=== PATIENT | female | born 1965 | race Caucasian/White ===

== ENCOUNTER 2017-01-25 17:20 | Emergency (ER) | payer MEDICARE, OTHER ==
[~2017-01-25] VITALS: Ht 170.2 cm; Wt 77.1 kg
[~2017-01-25 17:20] MED LIST: AMLO5TAB4 PO; ASPI325T8 PO; CLOP75TA PO; CRESTOR10 MG PO; GLYB5TAB3 PO; METF10002 PO; METO50TA2 PO; OLME40TA12 PO; PANT40TA5 PO
--- NOTE | 2017-01-25 17:38 | EKG ---
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
[2017-01-25] MEDS ORDERED: IPRATRPIUM/ALBUTEROL 0.5/2.5MG 3 ML NEBU. ONE (18:04)
[2017-01-25 18:34] LABS: BASO % 0 % (0-3); EOS % 0 % (0-3); HEMATOCRIT 42.2 % (36.0-47.0); HEMOGLOBIN 14.8 g/dL (12.0-15.5); LYMPH # 2.7 x10^3/uL (1.0-4.8); LYMPH % 30 % (24-48); MEAN CORPUSCULAR HEMOGLOBIN 35 pg (25-35); MEAN CORPUSCULAR HGB CONC 35 g/dL (31-37); MEAN CORPUSCULAR VOLUME 100 fL (79-100); MONO # 0.8 x10^3/uL (0.0-1.1); MONO % 9 % (0-9); NEUT # 5.5 x10^3uL (1.8-7.7); NEUT % 60 % (31-73); PLATELET COUNT 178 x10^3/uL (140-400); RED BLOOD COUNT 4.21 x10^6/uL (3.50-5.40); RED CELL DISTRIBUTION WIDTH 14.2 % (11.5-14.5); WHITE BLOOD COUNT 9.1 x10^3/uL (4.0-11.0)
[2017-01-25] MEDS ORDERED: IPRATRPIUM/ALBUTEROL 0.5/2.5MG 3 ML NEBU. NEB ONE (18:45)
[2017-01-25 18:48] LABS: ALBUMIN 3.2 g/dL (3.4-5.0); ALBUMIN/GLOBULIN RATIO 0.7 (1.0-1.7); CALCIUM 8.8 mg/dL (8.5-10.1); CREATININE 0.7 mg/dL (0.6-1.0); GFR 87.9; POTASSIUM 4.3 mmol/L (3.5-5.1); TOTAL BILIRUBIN 0.4 mg/dL (0.2-1.0); TOTAL PROTEIN 7.6 g/dL (6.4-8.2)
[2017-01-25 18:55] VITALS: BP 102/59
[2017-01-25] MEDS ORDERED: FLUT12AE IH (19:27)
[2017-01-25] MEDS ORDERED: FLUT9.9S NS (19:27)
--- NOTE | 2017-01-25 19:27 | PHYS DOC ---
Past History Past Medical History: COPD, Diabetes, GERD, High Cholesterol, Heart Disease, Hypertension, [place], Other Past Surgical History: Other Smoking: Cigarettes, Less than 1pk/day Alcohol Use: Heavy Drug Use: None Adult General Chief Complaint Chief Complaint: CHEST PAIN HPI HPI Patient is a [age] year old F who presents with dull central chest pain that is associated with cough and shortness of breath. She feels that her symptoms are worse with activity and improved with rest. She does have a history of heart attack with multiple stents, peripheral vascular disease, alcohol abuse, tobacco abuse and pneumonia. She did take herself off of her Plavix recently. She doesn't like the way her breathing medications taste so she has not been using those either. Review of Systems Review of Systems Constitutional: Denies fever or chills [] Eyes: Denies change in visual acuity, redness, or eye pain [] HENT: Nasal congestion and drainage Respiratory: Negative except history of present illness Cardiovascular: No additional information not addressed in HPI [] GI: Denies abdominal pain, nausea, vomiting, bloody stools or diarrhea [] : Denies dysuria or hematuria [] Musculoskeletal: Denies back pain or joint pain [] Integument: Denies rash or skin lesions [] Neurologic: Denies headache, focal weakness or sensory changes [] Endocrine: Denies polyuria or polydipsia [] Family History Family History Family history was reviewed Current Medications Current Medications Current Medications Medications (Trade) Dose Ordered Sig/[facility] Start Time Stop Time Status Last Admin Dose Admin Albuterol/ Ipratropium (Duoneb) 3 ml 1X ONCE 01/25/17 18:45 01/25/17 18:46 DC 01/25/17 18:41 3 ML Allergies Allergies Allergies Coded Allergies Type Severity Reaction Last Updated Verified No Known Drug Allergies 08/14/15 No Physical Exam Physical Exam Constitutional: Well developed, well nourished, no acute distress, non-toxic appearance. [] HENT: Normocephalic, atraumatic, bilateral external ears normal, oropharynx moist, no oral exudates, nose normal. [] Eyes: PERRLA, EOMI, conjunctiva normal, no discharge. [] Neck: Normal range of motion, no tenderness, supple, no stridor. [] Cardiovascular:Heart rate regular rhythm, Lungs & Thorax: Diminished with mild wheezing noted Abdomen: Bowel sounds normal, soft, no tenderness, no masses, no pulsatile masses. [] Skin: Warm, dry, no erythema, no rash. [] Back: No tenderness, no CVA tenderness. [] Extremities: No tenderness, no cyanosis, no clubbing, ROM intact, no edema. [] Neurologic: Alert and oriented X 3, normal motor function, normal sensory function, no focal deficits noted. [] Psychologic: Affect normal, judgement normal, mood normal. [] Current Patient Data Vital Signs Vital Signs Date Time Temp Pulse Resp B/P (MAP) Pulse Ox O2 Delivery O2 Flow Rate FiO2 01/25/17 18:34 99 Room Air 01/25/17 18:26 62 18 111/67 (82) 01/25/17 17:20 97.8 Lab Results Laboratory Tests Test 01/25/17 18:15 White Blood Count 9.1 x10^3/uL (4.0-11.0) Red Blood Count 4.21 x10^6/uL (3.50-5.40) Hemoglobin 14.8 g/dL (12.0-15.5) Hematocrit 42.2 % (36.0-47.0) Mean Corpuscular Volume 100 fL (79-100) Mean Corpuscular Hemoglobin 35 pg (25-35) Mean Corpuscular Hemoglobin Concent 35 g/dL (31-37) Red Cell Distribution Width 14.2 % (11.5-14.5) Platelet Count 178 x10^3/uL (140-400) Neutrophils (%) (Auto) 60 % (31-73) Lymphocytes (%) (Auto) 30 % (24-48) Monocytes (%) (Auto) 9 % (0-9) Eosinophils (%) (Auto) 0 % (0-3) Basophils (%) (Auto) 0 % (0-3) Neutrophils # (Auto) 5.5 x10^3uL (1.8-7.7) Lymphocytes # (Auto) 2.7 x10^3/uL (1.0-4.8) Monocytes # (Auto) 0.8 x10^3/uL (0.0-1.1) Eosinophils # (Auto) 0.0 x10^3/uL (0.0-0.7) Basophils # (Auto) 0.0 x10^3/uL (0.0-0.2) Sodium Level 129 mmol/L (136-145) L Potassium Level 4.3 mmol/L (3.5-5.1) Chloride Level 95 mmol/L (98-107) L Carbon Dioxide Level 26 mmol/L (21-32) Anion Gap 8 (6-14) Blood Urea Nitrogen 4 mg/dL (7-20) L Creatinine 0.7 mg/dL (0.6-1.0) Estimated GFR (Cockcroft-Gault) 87.9 BUN/Creatinine Ratio 6 (6-20) Glucose Level 173 mg/dL (70-99) H Calcium Level 8.8 mg/dL (8.5-10.1) Total Bilirubin 0.4 mg/dL (0.2-1.0) Aspartate Amino Transferase (AST) 28 U/L (15-37) Alanine Aminotransferase (ALT) 39 U/L (14-59) Alkaline Phosphatase 117 U/L (46-116) H Troponin I Quantitative < 0.017 ng/mL (0-0.055) Total Protein 7.6 g/dL (6.4-8.2) Albumin 3.2 g/dL (3.4-5.0) L Albumin/Globulin Ratio 0.7 (1.0-1.7) L EKG EKG Low voltage EKG, sinus rhythm with nonspecific ST changes Radiology/Procedures Radiology/Procedures Chest x-ray Impressions: No acute disease Course & Med Decision Making Course & Med Decision Making Pertinent Labs and Imaging studies reviewed. (See chart for details) Admission was recommended. Melvi did leave AGAINST MEDICAL ADVICE Dragon Disclaimer Dragon Disclaimer This chart was dictated in whole or in part using Voice Recognition software in a busy, high-work load, and often noisy Emergency Department environment. It may contain unintended and wholly unrecognized errors or omissions. Departure Departure: Impression: Primary Impression: Bronchitis Additional Impressions: Upper respiratory infection Chest pain Disposition: AGAINST MEDICAL ADVICE Condition: GUARDED Referrals: AMALIA YUN MD (PCP) Patient Instructions: Acute Bronchitis, Chest Pain (Nonspecific), Upper Respiratory Infection, Adult Additional Instructions: Melvi was seen in the emergency department for chest pain. There was concern that her chest pain could be related to cardiac disease. Admission was recommended and declined. She was given prescriptions for steroid nose spray and inhaler. She was encouraged to follow-up with her primary care doctor or inside sales account representative as soon as possible and/or to return to the emergency room for further management. Scripts Fluticasone Propionate (FLOVENT 110MCG HFA) 12 Gm Aer.w.adap 2 PUFF IH BID for 7 Days, #1 INHALER 2 Refills Prov: SOL RIDLEY MD 01/25/17 Fluticasone Propionate (Flonase Allergy Relief) 9.9 Ml Perrin.susp 1 SPRAYS NS BID for 7 Days, BOTTLE Prov: SOL RIDLEY MD 01/25/17 Problem Qualifiers Additional Impressions: Upper respiratory infection URI type: unspecified viral URI Qualified Codes: J06.9 - Acute upper respiratory infection, unspecified; B97.89 - Other viral agents as the cause of diseases classified elsewhere Chest pain Chest pain type: unspecified Qualified Codes: R07.9 - Chest pain, unspecified SOL RIDLEY MD Jan 25, 2017 19:27
--- NOTE | 2017-01-26 08:14 | RAD ---
Portable chest, 01/25/2017: History: Chest pain, shortness of breath Comparison is made to a study from 01/27/2016. The heart size and pulmonary vascularity are normal. There is calcific plaquing of the aorta. No pulmonary infiltrates are seen. There is no evidence of pleural fluid. IMPRESSION: No acute cardiopulmonary abnormality is detected.
== END 2017-01-25 19:35 | disposition left against medical advice (07) ==
LOC: ER 17:20
DX: J06.9 Acute upper respiratory infection, unspecified (principal); J40 Bronchitis, not specified as acute or chronic; R07.89 Other chest pain; J44.9 Chronic obstructive pulmonary disease, unspecified; K21.9 Gastro-esophageal reflux disease without esophagitis; E78.00 Pure hypercholesterolemia, unspecified; E11.9 Type 2 diabetes mellitus without complications; I25.2 Old myocardial infarction; I11.9 Hypertensive heart disease without heart failure; F10.10 Alcohol abuse, uncomplicated
CPT/HCPCS: 36415; 71010; 80053; 84484; 85025; 93005; 94640; 99285; J7620

== ENCOUNTER → 2017-07-22 | Outpatient (CLI) | payer MEDICARE, OTHER ==
[~2017-07-22] MED LIST changes: +FLUT12AE IH; +FLUT9.9S NS; -METO50TA2 PO; +METO50TA6 PO
--- NOTE | 2017-07-22 17:41 | RAD ---
CT head without contrast 07/22/2017 Clinical indication: Fall with head trauma. On anticoagulation. COMPARISON: None. TECHNIQUE: Multiple CT images of the head were obtained without contrast. *One or more of the following individualized dose reduction techniques were utilized for this examination: 1. Automated exposure control. 2. Adjustment of the mA and/or kV according to patient size. 3. Use of iterative reconstruction technique. FINDINGS: No acute intracranial hemorrhage or extra-axial fluid collection no midline shift. The basal cisterns are patent. The chapman-white matter interfaces are maintained. There is mild prominence of the ventricles and subarachnoid spaces. There is partial opacification of the posterior right ethmoid air cells. There is calcified plaque the left M1 and proximal M2 segment of the MCA. IMPRESSION: 1. No acute intracranial hemorrhage. 2. Mild generalized cerebral atrophy. 3. Left middle cerebral calcified plaque. Electronically signed by: Flaco Vergara MD (07/22/2017 5:38 PM) [facility]
== END | disposition home or self-care (01) ==
LOC: CT 17:09
PROVIDERS: ATTEND Physician Assistant
DX: S09.90XA Unspecified injury of head, initial encounter (principal); G31.89 Other specified degenerative diseases of nervous system; I67.2 Cerebral atherosclerosis; I11.9 Hypertensive heart disease without heart failure; E11.40 Type 2 diabetes mellitus with diabetic neuropathy, unspecified; E78.00 Pure hypercholesterolemia, unspecified; Z87.891 Personal history of nicotine dependence; X58.XXXA Exposure to other specified factors, initial encounter; Y93.89 Activity, other specified; Y92.89 Other specified places as the place of occurrence of the external cause; Y99.8 Other external cause status
CPT/HCPCS: 70450

== ENCOUNTER 2018-02-05 03:47 | Inpatient (IN) | payer MEDICARE, OTHER ==
[~2018-02-05] VITALS: Ht 170.2 cm; Wt 77.5 kg
[~2018-02-05 03:47] MED LIST changes: -METF10002 PO; +METF10007 PO
[2018-02-05 04:27] LABS: BASO # 0.2 x10^3/uL (0.0-0.2); BASO % 3 % (0-3); EOS # 0.2 x10^3/uL (0.0-0.7); EOS % 3 % (0-3); HEMATOCRIT 40.2 % (36.0-47.0); LYMPH # 2.8 x10^3/uL (1.0-4.8); LYMPH % 43 % (24-48); MEAN CORPUSCULAR HEMOGLOBIN 36 pg (25-35); MEAN CORPUSCULAR HGB CONC 35 g/dL (31-37); MEAN CORPUSCULAR VOLUME 102 fL (79-100); MONO # 0.5 x10^3/uL (0.0-1.1); MONO % 7 % (0-9); NEUT # 2.9 x10^3uL (1.8-7.7); NEUT % 44 % (31-73); PLATELET COUNT 263 x10^3/uL (140-400); RED BLOOD COUNT 3.93 x10^6/uL (3.50-5.40); RED CELL DISTRIBUTION WIDTH 13.7 % (11.5-14.5); WHITE BLOOD COUNT 6.5 x10^3/uL (4.0-11.0)
[2018-02-05] MEDS ORDERED: IV DEXTROSE 5 %-0.45 % NACL 1,000 ML IV ONE (04:30)
[2018-02-05] MEDS ORDERED: FAMOTIDINE 20 MG/2 ML VIAL IVP ONE ×2 (04:30→06:00)
--- NOTE | 2018-02-05 05:51 | ED.ADGEN ---
Past History Past Medical History: COPD, Diabetes, GERD, High Cholesterol, Heart Disease, Hypertension, [place], Other Past Surgical History: Tubal ligation, Other Smoking: Cigarettes, Less than 1pk/day Alcohol Use: Heavy Drug Use: None Adult General Chief Complaint Chief Complaint Altered mental status, hypoglycemiaresolved HPI HPI Patient is 53-year-old female who is diabetic who presents with reported altered mental status at home earlier this morning. Patient was found to be confused with a blood sugar of 21 per EMS. Patient given 150 mL of D10 with return to normal mental status and blood sugar greater than 100. Patient states she is on glyburide and is not compliant with her medications. She states she's had decreased appetite and has not ate in the past 3 days. Patient is a daily drinker and drink prior to ED arrival. She states she is began alcoholic for over 30 years. She states she is disabled is unable to shot relies on the food that her common-law provides but does not want to ED as she finds it disgusting. Reports occasional nausea and abdominal pain which is chronic. She denies hematemesis, coffee-ground emesis, hematochezia and melena. No history of pancreatitis. No other acute symptoms or complaints. Review of Systems Review of Systems Review symptoms as per history of present illness. All other systems were reviewed and found to be within normal limits, except as documented in this note. Current Medications Current Medications Current Medications Medications (Trade) Dose Ordered Sig/[facility] Start Time Stop Time Status Last Admin Dose Admin Dextrose/Sodium Chloride 1,000 ml @ 0 mls/hr 1X ONCE 02/05/18 04:30 02/05/18 04:31 DC 02/05/18 04:30 999 MLS/HR Famotidine (Pepcid Vial) 20 mg 1X ONCE 02/05/18 04:30 02/05/18 04:53 DC 02/05/18 04:29 20 MG Allergies Allergies Allergies Coded Allergies Type Severity Reaction Last Updated Verified No Known Drug Allergies 08/14/15 No Physical Exam Physical Exam Constitutional: Well developed, double, poor hygiene, non-toxic appearance. [] HENT: Normocephalic, atraumatic, bilateral external ears normal, oropharynx moist, no oral exudates, nose, nasal cannula [] Eyes: PERRLA, EOMI, conjunctiva normal, no discharge. [] Neck: Normal range of motion, no tenderness, supple, no stridor. [] Cardiovascular:Heart rate regular rhythm, no murmur [] Lungs & Thorax: Bilateral breath sounds clear to auscultation [] Abdomen: Bowel sounds normal, soft, no tenderness.[] Skin: Warm, dry, no erythema, no rash. [] Back: No tenderness, no CVA tenderness. [] o edema. [] Neurologic: Alert and oriented X 3, normal motor function, normal sensory function, no focal deficits noted. [] Psychologic: Affect normal, judgement normal, mood normal. [] Current Patient Data Vital Signs Vital Signs Date Time Temp Pulse Resp B/P (MAP) Pulse Ox O2 Delivery O2 Flow Rate FiO2 02/05/18 04:15 96.2 70 16 97 Room Air Lab Results Laboratory Tests Test 02/05/18 04:00 02/05/18 04:10 02/05/18 04:48 Glucose (Fingerstick) 124 mg/dL (70-99) H 145 mg/dL (70-99) H White Blood Count 6.5 x10^3/uL (4.0-11.0) Red Blood Count 3.93 x10^6/uL (3.50-5.40) Hemoglobin 14.0 g/dL (12.0-15.5) Hematocrit 40.2 % (36.0-47.0) Mean Corpuscular Volume 102 fL (79-100) H Mean Corpuscular Hemoglobin 36 pg (25-35) H Mean Corpuscular Hemoglobin Concent 35 g/dL (31-37) Red Cell Distribution Width 13.7 % (11.5-14.5) Platelet Count 263 x10^3/uL (140-400) Neutrophils (%) (Auto) 44 % (31-73) Lymphocytes (%) (Auto) 43 % (24-48) Monocytes (%) (Auto) 7 % (0-9) Eosinophils (%) (Auto) 3 % (0-3) Basophils (%) (Auto) 3 % (0-3) Neutrophils # (Auto) 2.9 x10^3uL (1.8-7.7) Lymphocytes # (Auto) 2.8 x10^3/uL (1.0-4.8) Monocytes # (Auto) 0.5 x10^3/uL (0.0-1.1) Eosinophils # (Auto) 0.2 x10^3/uL (0.0-0.7) Basophils # (Auto) 0.2 x10^3/uL (0.0-0.2) EKG EKG [] Radiology/Procedures Radiology/Procedures [] Course & Med Decision Making Course & Med Decision Making Pertinent Labs and Imaging studies reviewed. (See chart for details) [Patient tolerating food in the emergency department. Blood sugar remains consistently greater than 100. Lab work pending. Care endorsed to [facility] at 06:00 review of lab, clinical evaluation, and final disposition. Patient may be suitable to discharge home to follow up with her primary care physician for alcohol rehabilitation flat is normal and she continues to improve.] Final Impression Final Impression [#1 hypoglycemiaresolved #2 altered mental statusresolved #3 chronic alcoholism] Dragon Disclaimer Dragon Disclaimer This electronic medical record was generated, in whole or in part, using a voice recognition dictation system. PATRIA STALEY DO Feb 05, 2018 05:51
[2018-02-05 05:56] LABS: ALBUMIN 2.9 g/dL (3.4-5.0); ALBUMIN/GLOBULIN RATIO 0.7 (1.0-1.7); CALCIUM 7.7 mg/dL (8.5-10.1); CREATININE 0.8 mg/dL (0.6-1.0); POTASSIUM 4.4 mmol/L (3.5-5.1); TOTAL BILIRUBIN 0.2 mg/dL (0.2-1.0); TOTAL PROTEIN 7.1 g/dL (6.4-8.2)
[2018-02-05] MEDS ORDERED: ONDANSETRON PF 4 MG/2 ML VIAL. IV PRN (06:15)
[2018-02-05] MEDS: IV NORMAL SALINE 1,000ML 1,000 ML IV SCH ×2 (06:15→20:07)
[2018-02-05 07:30] VITALS: BP 101/56
[2018-02-05] MEDS ORDERED: CLOP75TA57 PO (07:54)
[2018-02-05] MEDS ORDERED: LOSA50TA7 PO (07:59)
[2018-02-05] MEDS ORDERED: DEXTROSE 50% 25 GM / 50ML DISP.SYRIN. IV PRN (08:45)
[2018-02-05] MEDS ORDERED: chlordiazePOXIDE HCL 25 MG CAPSULE PO PRN (08:45)
[2018-02-05] MEDS: amLODIPine BESYLATE 5 MG TABLET PO SCH (09:00)
[2018-02-05] MEDS: METOPROLOL TART IMMED RELEASE 50 MG TABLET PO SCH ×2 (09:00→21:27)
[2018-02-05] MEDS ORDERED: NON FORMULARY ITEM (Fluticasone Propionate (Flovent 110MCG Hfa) 2 PUFF) IH SCH (09:00)
[2018-02-05] MEDS ORDERED: BUDESONIDE 0.5 MG/2 ML NEBU NEB SCH (09:00)
[2018-02-05] MEDS: BUDESONIDE 0.5 MG/2 ML NEBU NEB SCH ×2 (09:00→20:39)
[2018-02-05] MEDS: ASPIRIN 325 MG TABLET PO SCH (10:48)
[2018-02-05] MEDS: CLOPIDOGREL BISULFATE 75 MG TABLET PO SCH (10:49)
[2018-02-05] MEDS: ATORVASTATIN CALCIUM 20 MG TABLET PO SCH (10:49)
[2018-02-05] MEDS: PANTOPRAZOLE 40 MG TABLET. PO SCH (10:49)
[2018-02-05] MEDS: MVI, ADULT NO.4 WITH VIT K 10 ML, THIAMINE INJ 100 MG, FOLIC ACID INJ 1 MG in IV NORMAL... IV SCH ×4 (10:52)
[2018-02-05 11:15] VITALS: BP 101/63
[2018-02-05] MEDS: INSULIN LISPRO 300 UNITS/3 ML INSULN.PEN. SQ SCH ×3 (12:58→20:49)
[2018-02-05 13:20] LABS: CALCIUM 7.8 mg/dL (8.5-10.1); CREATININE 0.7 mg/dL (0.6-1.0); GFR 87.5; POTASSIUM 3.9 mmol/L (3.5-5.1)
[2018-02-05] MEDS: NICOTINE 14MG PATCH. TD SCH (13:34)
--- NOTE | 2018-02-05 14:06 | HP ---
ADMIT DATE: 02/05/2018 HISTORY OF PRESENT ILLNESS: The patient is a 53-year-old female patient, who was brought by ambulance to the Emergency Room with reported altered mental status. At home earlier this morning, she was found to be confused. Her blood sugar was only 21 mg/dL. She said she tried to call her boyfriend who is busy with [employer] videos and did not hear here, she was unable to get up to eat or drink something; the emergency medical service personnel gave her 150 mL of D10, will return to normal mental status and blood sugar has risen 200 mg. She apparently is on glyburide and metformin, and she is not really compliant with her medication. She 6 cans of beer every day together with some occasionally shots of whiskey and her appetite has been poor, has not eaten in the past 3 days. She states that she has been alcoholic for more than 30 years. She is disabled, she is unable to shop and realizing the food that her common law provides. She reports occasional nausea and abdominal pain, which is chronic; however, she denied any hematemesis, melena or hematochezia. She was extensively evaluated in the Emergency Room, was found to have hyponatremia with a serum sodium of 120, some of it is probably dilutional due to hypercalcemia and her blood alcohol was extremely high at 271 mg/dL, was admitted to monitor her blood sugar and she is also complaining of difficulty severe claudication with severe peripheral vascular disease and she underwent stenting of both lower extremities on numerous occasions. She was advised by her pharmacy customer care specialist numerous times that she should quit smoking. Unfortunately, she continued to smoke heavily and we will consult Dr. Son to see her. PAST MEDICAL HISTORY: Significant for coronary artery disease, status post myocardial infarction x 2. She is status post percutaneous coronary intervention with stent deployment x 3. She is known to have type 2 diabetes mellitus, hypertension, hyperlipidemia, bronchial asthma and severe peripheral vascular disease, status post multiple angioplasties and stent deployment. She stated that she has 6 stents in both lower extremities. PAST SURGICAL HISTORY: Significant for , tubal ligation, dysphagia, gastrojejunostomy, and colonoscopy. ALLERGIES: She has no known drug allergies. MEDICATIONS: She is currently on following medications: She is on Plavix 75 mg once a day, Crestor 10 mg at bedtime, metoprolol tartrate 50 mg twice a day, amlodipine besylate 5 mg daily, losartan potassium 50 mg daily, aspirin 325 mg once a day, Flovent 110 mcg 2 puffs twice a day, Protonix 40 mg once a day, metformin 1000 mg twice a day and glyburide 5 mg twice a day. REVIEW OF SYSTEMS: The patient denied any blurring of vision. She does have cataract in her right eye that did not require surgery. She has also vertigo, stuffy nose together with sore throat. Did complain of nausea, vomiting, and diarrhea, and apparently she has an episode of GI bleed before. She denied any dysuria, frequency or hematuria. Denied any chest pain, shortness of breath, orthopnea, paroxysmal nocturnal dyspnea. Did complain of cough, but denied any chills, rigors or fever. PHYSICAL EXAMINATION: GENERAL: On arrival to the Emergency Room, she looked well and was clearly in no apparent respiratory distress. There is definitely no pallor, jaundice, cyanosis, or thyromegaly. No jugular venous distension. No limb edema. VITAL SIGNS: Her heart rate on arrival was 64, blood pressure was 154/72, temperature was 98.2, respiratory rate was 18 and oxygen saturation was 95%. HEAD, EYES, EARS, NOSE, AND THROAT: Showed normocephalic, atraumatic. NECK: Supple. HEART: Showed normal first and second heart sounds with no gallop, rub or murmur. CHEST: Clear to auscultation. No crepitation or rhonchi. ABDOMEN: Distended, soft, nontender. No guarding or rigidity. No organomegaly. All hernial orifices intact. Bowel sounds normal. NEUROLOGIC: She is awake, alert, responding appropriately. All cranial nerves intact. EXTREMITIES: She moves upper extremities to much good extent than lower extremities. She is mostly bed bound. LABORATORY DATA: On arrival showed a white cell count of 6500, hemoglobin 14, hematocrit 40, MCV 102 and platelet count of 263,000. Her chemistry showed that her serum sodium was 120, potassium 4.4, chloride was 87, bicarbonate 27, anion gap of 6, BUN 6, creatinine 0.8, estimated GFR was 75 mL per minute. Her glucose was 307, calcium was 7.7. Total bilirubin, AST, ALT were normal. Alkaline phosphatase slightly elevated. Her total protein was 7.1, albumin 2.9 and serum lipase was 161. Her blood alcohol level was 271. IMPRESSION: 1. In summary, this is a 53-year-old female patient who came in with altered mental status due to severe hypoglycemia with a blood sugar that was only 21 mg by the time the ambulance arrived there. 2. She has severe hyponatremia, possibility it is dilutional. 3. She has severe peripheral vascular disease. She has severe claudication that she is unable even to walk within her room. She has recurrent falls. 4. Alcoholism. She drinks 6 cans of beer every day and also some shots of whiskey occasionally according to her and unfortunately she continued to smoke half a pack a day every day despite her severe peripheral vascular disease that required multiple stenting and despite advised by her pharmacy customer care specialist on numerous occasion. PLAN: Monitor her blood sugar. I will hold her glyburide as well as the metformin for now. We will start her on Nicoderm patch and alcohol withdrawal protocol. We will repeat all her lab works tomorrow, we will consult the Cardiology for her severe peripheral vascular disease. I had a lengthy discussion with her about smoking and drinking that there is no point in doing any intervention if she is not going to stop smoking that she needs to choose between her cigarettes or her toes. If the serum sodium is not turning the corner, we might have to consider fluid restriction. I will also check her ammonia as well as prothrombin time to make sure that manifestation of advanced liver disease. CASIMIRO LUCERO MD DR: ODIN/johnna JOB#: [id number] / [id number]
[2018-02-05 15:05] LABS: CALCIUM 7.8 mg/dL (8.5-10.1); CREATININE 0.7 mg/dL (0.6-1.0); GFR 87.5; POTASSIUM 3.9 mmol/L (3.5-5.1)
[2018-02-05 15:30] VITALS: BP 127/63
[2018-02-05] MEDS: chlordiazePOXIDE HCL 25 MG CAPSULE PO PRN ×2 (17:46→21:31)
[2018-02-05] MEDS ORDERED: MAG HYDROX/AL HYDROX/SIMETH 30 ML ORAL.SUSP PO PRN (20:00)
[2018-02-05] MEDS ORDERED: CALCIUM CARBONATE 500 MG TAB.CHEW PO PRN (20:00)
[2018-02-05 21:00] VITALS: BP 109/70
[2018-02-05 23:27] VITALS: BP 118/71
[2018-02-06] MEDS: IV NORMAL SALINE 1,000ML 1,000 ML IV SCH (04:13)
[2018-02-06 05:58] VITALS: BP 144/82
[2018-02-06 07:04] LABS: CALCIUM 7.9 mg/dL (8.5-10.1); CREATININE 0.7 mg/dL (0.6-1.0); GFR 87.5; POTASSIUM 4.9 mmol/L (3.5-5.1)
[2018-02-06] MEDS: PANTOPRAZOLE 40 MG TABLET. PO SCH (07:33)
[2018-02-06] MEDS: INSULIN LISPRO 300 UNITS/3 ML INSULN.PEN. SQ SCH ×2 (07:51→12:03)
[2018-02-06] MEDS: CLOPIDOGREL BISULFATE 75 MG TABLET PO SCH (08:26)
[2018-02-06] MEDS: ASPIRIN 325 MG TABLET PO SCH (08:26)
[2018-02-06] MEDS: NICOTINE 14MG PATCH. TD SCH (08:26)
[2018-02-06] MEDS: METOPROLOL TART IMMED RELEASE 50 MG TABLET PO SCH (08:27)
[2018-02-06] MEDS: ATORVASTATIN CALCIUM 20 MG TABLET PO SCH (08:27)
[2018-02-06] MEDS: amLODIPine BESYLATE 5 MG TABLET PO SCH (08:27)
[2018-02-06] MEDS: MVI, ADULT NO.4 WITH VIT K 10 ML, THIAMINE INJ 100 MG, FOLIC ACID INJ 1 MG in IV NORMAL... IV SCH ×4 (08:43)
--- NOTE | 2018-02-06 09:19 | PDOC2 ---
CONSULT Date of Admission DATE: 02/06/18 TIME: 09:06 Reason for Consult: PAD, claudication Problem List Problems Medical Problems: (1) Hypoglycemia Status: Acute History of Present Illness Ms Reddy is a 53-year-old female with history of coronary artery disease s/p PCI/ stenting and PAD s/p stenting with restenosis by last angiogram in March of last year. She additionally suffers from diabetes, hypertension, hyperlipidemia. She presented with complaints of altered mental status at home for which she called EMS. She had apparently not been eating but did take her diabetes medications. EMS apparently found her to be confused with a blood sugar of 21 by the time they arrived. She was given D10 which improved her blood sugar to 100 and resolved her decreased mental status. She is a heavy drinker and was found to have a significantly elevated ETOH level. She denies any chest discomfort, dyspnea or palpitations. She reports occasional nausea and abdominal pain chronically. . She denies hematemesis, coffee-ground emesis , hematochezia and melena. She denies congestive symptoms, lightheadedness or syncope. She complains of claudication with walking less than 100 feet which resolves with standing still for a few minutes. She was advised to have a vascular surgery consult after her runoff in March. She did not follow through with that consult nor did she follow up in the office although she did schedule two office follow ups. She reports no transportation and difficulty going to for appointments. Past Medical History Cardiac cath 01/27/16 CORONARY ANGIOGRAPHY: LM is a large caliber vessel with normal angiographic appearance. LAD is a large caliber vessel with a proximal to mid eccentric 50% stenosis. D1 is a moderate caliber vessel with normal angiographic appearance. LCx is a moderate caliber non-dominant vessel with patent stents in the mid stent then tapers to a small caliber vessel with subtotal occlusion after OM1. OM1 is a moderate caliber vessel with an ostial 40-50% stenosis. RCA is a large caliber dominant vessel with a proximal 70% stenosis, followed by patent stents in the mid segment and a 80% distal stenosis extending into PDA. RPDA is a moderate caliber vessel with a ostial/proximal 70% stenosis. Conclusion 1. Three vessel coronary artery disease. 2. Patent LCx and RCA stents. 3. Successful PCI of the proximal/distal RCA and proximal PDA with implantation of a Vision 2.75/18 (prox RCA) and a 2.5/18 (distal RCA/proximal PDA). Recommendations Smoking Cessation Cardiac Rehabilitation Referral Aggressive Medical Therapy ASA 81mg daily indefinitely Ticagrelor 90mg bid x 30 days. Aortic runoff 03/21/17 Findings: Aorta: No significant disease RCIA: 20% ostial stenosis. RIIA: No significant disease. REIA: Patent stent with 60% ISR with 40 mm Hg pressure gradient. RCFA: No significant disease. RSFA: Patent ostial stent with 30% diffuse ISR. Mid to distal SFA stent with 80 % ISR. RPROF: No significant disease. RPOP: No significant disease. RPT: Occluded RPER: Patent with distal collateralization tot he PT. RAT: Patent with sluggish flow compared to peroneal vessel, suggestive of distal high grade disease. LCIA: No significant disease. LIIA: No significant disease. REGINALDO: Severe diffuse 80% stenosis. LCFA: No significant disease. LSFA: Patent stent with an ostial/proximal 60% ISR. Patent long segment SFA stent. LPOP: No significant disease. LAT: No significant disease. LPT: No significant disease. LPER: No significant disease. Conclusion 1. Multilevel inflow and outflow disease with ISR of the previously placed REIA , RSFA and LSFA stents. Culprit lesion for LLE pain is likely diffuse REGINALDO stenosis. 2. Consider vascular surgery evaluation (Would need aorto-bifem, followed by right fem-pop) versus repeat PVI using drug eluting balloons. 3. Given contrast load, single vessel run-off of the RLE, will plan for staged intervention after vascular surgery evaluation for discussion of other options. Recommendations Smoking Cessation Cardiac Rehabilitation Referral Cardiovascular: CAD, HTN, AL, Hyperlipidemia, Other (PAD: stent to LE in the past) Pulmonary: Asthma, COPD, Pneumonia GI: GERD Heme/Onc: Anemia NOS Hepatobiliary: No pertinent hx Psych: Other (alcoholism) Musculoskeletal: Osteoarthritis Rheumatologic: No pertinent hx Infectious disease: No pertinent hx ENT: No pertinent hx Renal/: No pertinent hx Endocrine: Diabetes (2) Dermatology: No pertinent hx Past Surgical History , Other (Multiple PCI/stent to coronaries; PAD with stent to LE) Family History Coronary Artery Disease Social History Smoke: 1/2 pack per day (>20 yrs) ALCOHOL: current heavy use Drugs: denies Lives: with Family Current Medications Current Medications Dextrose/Sodium Chloride 1,000 ml @ 0 mls/hr 1X ONCE IV Last administered on 02/05/18at 04:30; Start 02/05/18 at 04:30; Stop 02/05/18 at 04:31; Status DC Famotidine (Pepcid Vial) 20 mg 1X ONCE IVP Last administered on 02/05/18at 04: 29; Start 02/05/18 at 04:30; Stop 02/05/18 at 04:53; Status DC Ondansetron HCl (Zofran) 4 mg PRN Q4HRS PRN IV NAUSEA/VOMITING Last administered on 02/05/18at 17:46; Start 02/05/18 at 06:15; Stop 02/06/18 at 06 :14; Status DC Sodium Chloride 1,000 ml @ 125 mls/hr Q8H IV Last administered on 02/06/18at 04:13; Start 02/05/18 at 06:15; Stop 02/06/18 at 06:14; Status DC Famotidine (Pepcid Vial) 20 mg 1X ONCE IVP ; Start 02/05/18 at 06:00; Stop at 06:20; Status DC Aspirin ([place] Aspirin) 325 mg DAILY PO Last administered on 02/06/18at 08:26; Start 02/05/18 at 09:00 Clopidogrel Bisulfate (Plavix) 75 mg DAILY PO Last administered on 02/06/18at 08:26; Start 02/05/18 at 09:00 Amlodipine Besylate (Norvasc) 5 mg DAILY PO Last administered on 02/06/18at 08: 27; Start 02/05/18 at 09:00 Non-Formulary Medication (Fluticasone Propionate (Flovent 110MCG Hfa)) 2 puff BID IH ; Start 02/05/18 at 09:00; Status UNV Metoprolol Tartrate (Lopressor) 50 mg BID PO Last administered on 02/06/18at 08 :27; Start 02/05/18 at 09:00 Pantoprazole Sodium (Protonix) 40 mg DAILYAC PO Last administered on at 07:33; Start 02/05/18 at 09:00 Atorvastatin Calcium (Lipitor) 40 mg DAILY PO Last administered on 02/06/18at 08:27; Start 02/05/18 at 09:00 Insulin Human Lispro (HumaLOG) 0-5 UNITS TIDWMEALS SQ Last administered on at 20:49; Start 02/05/18 at 12:00 Dextrose 12.5 gm PRN Q15MIN PRN IV SEE COMMENTS; Start 02/05/18 at 08:45 Multivitamins/ Minerals 10 ml/ Thiamine HCl 100 mg/Folic Acid 1 mg/Sodium Chloride 1,011.2 ml @ 100 mls/ hr DAILY IV Last administered on 02/06/18at 08: 43; Start 02/05/18 at 09:00; Stop 02/10/18 at 08:59 Chlordiazepoxide (Librium) 50 mg PRN Q1HR PRN PO For CIWA 8-14 Last administered on 02/05/18at 21:31; Start 02/05/18 at 08:45 Chlordiazepoxide (Librium) 100 mg PRN Q1HR PRN PO For CIWA 15 or greater; Start 02/05/18 at 08:45 Budesonide (Pulmicort) 0.5 mg RTBID NEB Last administered on 02/05/18at 20:39; Start 02/05/18 at 09:00 Budesonide (Pulmicort) 0.5 mg RTBID NEB ; Start 02/05/18 at 09:00; Status Cancel Influenza Virus Vaccine (Afluria Trivalent [id number] Syringe) 0.5 ml ONCE ONCE VAX IM Last administered on 02/06/18at 08:24; Start 02/06/18 at 09:00; Stop 02/06/18 at 09:01; Status DC Nicotine (Nicoderm Cq 14mg) 1 patch DAILY TD Last administered on 02/06/18at 08 :26; Start 02/05/18 at 13:30 Calcium Carbonate/ Glycine (Tums) 500 mg PRN AFTMEALHC PRN PO INDIGESTION Last administered on 02/05/18at 21:27; Start 02/05/18 at 20:00 Al Hydroxide/Mg Hydroxide (Mylanta Plus Xs) 30 ml PRN Q2HR PRN PO DYSPEPSIA; Start 02/05/18 at 20:00 Active Scripts Active Flovent 110MCG Hfa (Fluticasone Propionate) 12 Gm Aer.w.adap 2 Puff IH BID 7 Days Reported Losartan Potassium 50 Mg Tablet 50 Mg PO DAILY Plavix (Clopidogrel Bisulfate) 75 Mg Tablet 1 Tab PO DAILY Pantoprazole Sodium 40 Mg Tablet.dr 1 Tab PO DAILY Metoprolol Tartrate 50 Mg Tablet 50 Mg PO BID Norvasc (Amlodipine Besylate) 5 Mg Tablet 5 Mg PO DAILY Glyburide 5 Mg Tablet 5 Mg PO BID Metformin Hcl 1,000 Mg Tablet 1,000 Mg PO BID Crestor (Rosuvastatin Calcium) 10 Mg Tablet 10 Mg PO DAILY Aspirin 325 Mg Tablet 325 Mg PO Allergies: Coded Allergies: No Known Drug Allergies (Unverified , 08/14/15) Review of System as per HPI or negative General: Alert, Oriented X3, Cooperative, No acute distress HEENT: Atraumatic, EOMI, Mucous membr. moist/pink Lungs: Other (decreased mid to base bilaterally, no crackles, rhonchi or wheezing) Heart: Normal S1, Normal S2, Other (no gallops, clicks or rubs) Abdomen: Normal bowel sounds, Soft, No tenderness Extremities: No cyanosis, No edema, Other (1+ intermittant DP pulses bilaterally, unable to palpate PT, popliteal bilaterally, 1+ femoral bilaterally ) Neuro: Normal speech, Strength at 5/5 X4 ext Psych/Mental Status: Mental status NL, Mood NL VITALS Vital Signs Date Time Temp Pulse Resp B/P (MAP) Pulse Ox O2 Delivery O2 Flow Rate FiO2 02/06/18 08:27 69 144/82 02/06/18 07:37 Room Air 02/06/18 05:58 97.9 16 91 Labs Laboratory Tests Test 02/05/18 04:00 02/05/18 04:10 02/05/18 04:48 02/05/18 05:35 Glucose (Fingerstick) 124 mg/dL (70-99) 145 mg/dL (70-99) White Blood Count 6.5 x10^3/uL (4.0-11.0) Red Blood Count 3.93 x10^6/uL (3.50-5.40) Hemoglobin 14.0 g/dL (12.0-15.5) Hematocrit 40.2 % (36.0-47.0) Mean Corpuscular Volume 102 fL (79-100) Mean Corpuscular Hemoglobin 36 pg (25-35) Mean Corpuscular Hemoglobin Concent 35 g/dL (31-37) Red Cell Distribution Width 13.7 % (11.5-14.5) Platelet Count 263 x10^3/uL (140-400) Neutrophils (%) (Auto) 44 % (31-73) Lymphocytes (%) (Auto) 43 % (24-48) Monocytes (%) (Auto) 7 % (0-9) Eosinophils (%) (Auto) 3 % (0-3) Basophils (%) (Auto) 3 % (0-3) Neutrophils # (Auto) 2.9 x10^3uL (1.8-7.7) Lymphocytes # (Auto) 2.8 x10^3/uL (1.0-4.8) Monocytes # (Auto) 0.5 x10^3/uL (0.0-1.1) Eosinophils # (Auto) 0.2 x10^3/uL (0.0-0.7) Basophils # (Auto) 0.2 x10^3/uL (0.0-0.2) Sodium Level 120 mmol/L (136-145) Potassium Level 4.4 mmol/L (3.5-5.1) Chloride Level 87 mmol/L (98-107) Carbon Dioxide Level 27 mmol/L (21-32) Anion Gap 6 (6-14) Blood Urea Nitrogen 6 mg/dL (7-20) Creatinine 0.8 mg/dL (0.6-1.0) Estimated GFR (Cockcroft-Gault) 75.0 BUN/Creatinine Ratio 8 (6-20) Glucose Level 307 mg/dL (70-99) Calcium Level 7.7 mg/dL (8.5-10.1) Total Bilirubin 0.2 mg/dL (0.2-1.0) Aspartate Amino Transf (AST/SGOT) 32 U/L (15-37) Alanine Aminotransferase (ALT/SGPT) 33 U/L (14-59) Alkaline Phosphatase 131 U/L (46-116) Total Protein 7.1 g/dL (6.4-8.2) Albumin 2.9 g/dL (3.4-5.0) Albumin/Globulin Ratio 0.7 (1.0-1.7) Lipase 161 U/L (73-393) Ethyl Alcohol Level 271 mg/dL (0-10) Test 02/05/18 05:36 02/05/18 07:44 02/05/18 11:44 02/05/18 13:06 Glucose (Fingerstick) 224 mg/dL (70-99) 309 mg/dL (70-99) 154 mg/dL (70-99) Sodium Level 126 mmol/L (136-145) Potassium Level 3.9 mmol/L (3.5-5.1) Chloride Level 93 mmol/L (98-107) Carbon Dioxide Level 25 mmol/L (21-32) Anion Gap 8 (6-14) Blood Urea Nitrogen 5 mg/dL (7-20) Creatinine 0.7 mg/dL (0.6-1.0) Estimated GFR (Cockcroft-Gault) 87.5 Glucose Level 132 mg/dL (70-99) Calcium Level 7.8 mg/dL (8.5-10.1) Test 02/05/18 14:50 02/05/18 16:51 02/05/18 20:12 02/06/18 06:43 Sodium Level 126 mmol/L (136-145) 132 mmol/L (136-145) Potassium Level 3.9 mmol/L (3.5-5.1) 4.9 mmol/L (3.5-5.1) Chloride Level 93 mmol/L (98-107) 100 mmol/L (98-107) Carbon Dioxide Level 26 mmol/L (21-32) 28 mmol/L (21-32) Anion Gap 7 (6-14) 4 (6-14) Blood Urea Nitrogen 5 mg/dL (7-20) 7 mg/dL (7-20) Creatinine 0.7 mg/dL (0.6-1.0) 0.7 mg/dL (0.6-1.0) Estimated GFR (Cockcroft-Gault) 87.5 87.5 Glucose Level 103 mg/dL (70-99) 136 mg/dL (70-99) Calcium Level 7.8 mg/dL (8.5-10.1) 7.9 mg/dL (8.5-10.1) Glucose (Fingerstick) 109 mg/dL (70-99) 215 mg/dL (70-99) Prothrombin Time 9.9 SEC (9.4-11.4) Prothromb Time International Ratio 1.0 (0.9-1.1) Ammonia < 10 mcmol/L (11-34) Test 02/06/18 07:32 Glucose (Fingerstick) 120 mg/dL (70-99) Assessment/Plan 1. Severe PAD 2. mental status change - resolved 3. CAD s/p prior PCI/stenting 4. hypertension 5. diabetes mellitus 6. hyperlipidemia 7. alcohol abuse 8. tobaccoism 9. medical noncompliance 10. malnutrition Continue antiplatelet, antihypertensives. recommend aggressive smoking cessation and ETOH cessation. Outpatient follow up to discuss peripheral intervention vs surgical consultation. Check lipids and adjust statin as indicated. Increase amlodipine. Consider Pletal cautiously as she has history of GIB. Encourage exercise. Additional POC as per PCP. 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
[2018-02-06] MEDS: BUDESONIDE 0.5 MG/2 ML NEBU NEB SCH (10:14)
[2018-02-06 10:54] VITALS: BP 115/67
--- NOTE | 2018-02-06 14:48 | PDOC1 ---
History of Present Illness Chief Complaint: HYPOGLYCEMIA Allergies: Coded Allergies: No Known Drug Allergies (Unverified , 08/14/15) Past Medical History Cardiac: CAD, HTN, hyperipidemia, Other [employer]: Periperal neuropathy Review of Systems Review Of Systems Fourteen system , review of systems has been reviewed. See HPI for pertinent positives and negative responses, other selby all other systems are negative, non pertinent or non contributory Medications Current Medications Dextrose/Sodium Chloride 1,000 ml @ 0 mls/hr 1X ONCE IV Last administered on 02/05/18at 04:30; Start 02/05/18 at 04:30; Stop 02/05/18 at 04:31; Status DC Famotidine (Pepcid Vial) 20 mg 1X ONCE IVP Last administered on 02/05/18at 04: 29; Start 02/05/18 at 04:30; Stop 02/05/18 at 04:53; Status DC Ondansetron HCl (Zofran) 4 mg PRN Q4HRS PRN IV NAUSEA/VOMITING Last administered on 02/05/18at 17:46; Start 02/05/18 at 06:15; Stop 02/06/18 at 06 :14; Status DC Sodium Chloride 1,000 ml @ 125 mls/hr Q8H IV Last administered on 02/06/18at 04:13; Start 02/05/18 at 06:15; Stop 02/06/18 at 06:14; Status DC Famotidine (Pepcid Vial) 20 mg 1X ONCE IVP ; Start 02/05/18 at 06:00; Stop at 06:20; Status DC Aspirin ([place] Aspirin) 325 mg DAILY PO Last administered on 02/06/18at 08:26; Start 02/05/18 at 09:00 Clopidogrel Bisulfate (Plavix) 75 mg DAILY PO Last administered on 02/06/18at 08:26; Start 02/05/18 at 09:00 Amlodipine Besylate (Norvasc) 5 mg DAILY PO Last administered on 02/06/18at 08: 27; Start 02/05/18 at 09:00; Stop 02/06/18 at 09:49; Status DC Non-Formulary Medication (Fluticasone Propionate (Flovent 110MCG Hfa)) 2 puff BID IH ; Start 02/05/18 at 09:00; Status UNV Metoprolol Tartrate (Lopressor) 50 mg BID PO Last administered on 02/06/18at 08 :27; Start 02/05/18 at 09:00 Pantoprazole Sodium (Protonix) 40 mg DAILYAC PO Last administered on at 07:33; Start 02/05/18 at 09:00 Atorvastatin Calcium (Lipitor) 40 mg DAILY PO Last administered on 02/06/18at 08:27; Start 02/05/18 at 09:00 Insulin Human Lispro (HumaLOG) 0-5 UNITS TIDWMEALS SQ Last administered on at 12:03; Start 02/05/18 at 12:00 Dextrose 12.5 gm PRN Q15MIN PRN IV SEE COMMENTS; Start 02/05/18 at 08:45 Multivitamins/ Minerals 10 ml/ Thiamine HCl 100 mg/Folic Acid 1 mg/Sodium Chloride 1,011.2 ml @ 100 mls/ hr DAILY IV Last administered on 02/06/18at 08: 43; Start 02/05/18 at 09:00; Stop 02/10/18 at 08:59 Chlordiazepoxide (Librium) 50 mg PRN Q1HR PRN PO For CIWA 8-14 Last administered on 02/05/18at 21:31; Start 02/05/18 at 08:45 Chlordiazepoxide (Librium) 100 mg PRN Q1HR PRN PO For CIWA 15 or greater; Start 02/05/18 at 08:45 Budesonide (Pulmicort) 0.5 mg RTBID NEB Last administered on 02/06/18at 10:14; Start 02/05/18 at 09:00 Budesonide (Pulmicort) 0.5 mg RTBID NEB ; Start 02/05/18 at 09:00; Status Cancel Influenza Virus Vaccine (Afluria Trivalent [id number] Syringe) 0.5 ml ONCE ONCE VAX IM Last administered on 02/06/18at 08:24; Start 02/06/18 at 09:00; Stop 02/06/18 at 09:01; Status DC Nicotine (Nicoderm Cq 14mg) 1 patch DAILY TD Last administered on 02/06/18at 08 :26; Start 02/05/18 at 13:30 Calcium Carbonate/ Glycine (Tums) 500 mg PRN AFTMEALHC PRN PO INDIGESTION Last administered on 02/05/18at 21:27; Start 02/05/18 at 20:00 Al Hydroxide/Mg Hydroxide (Mylanta Plus Xs) 30 ml PRN Q2HR PRN PO DYSPEPSIA; Start 02/05/18 at 20:00 Amlodipine Besylate (Norvasc) 10 mg DAILY PO ; Start 02/07/18 at 09:00 Active Scripts Active Flovent 110MCG Hfa (Fluticasone Propionate) 12 Gm Aer.w.adap 2 Puff IH BID 7 Days Reported Losartan Potassium 50 Mg Tablet 50 Mg PO DAILY Plavix (Clopidogrel Bisulfate) 75 Mg Tablet 1 Tab PO DAILY Pantoprazole Sodium 40 Mg Tablet.dr 1 Tab PO DAILY Metoprolol Tartrate 50 Mg Tablet 50 Mg PO BID Norvasc (Amlodipine Besylate) 5 Mg Tablet 5 Mg PO DAILY Glyburide 5 Mg Tablet 5 Mg PO BID Metformin Hcl 1,000 Mg Tablet 1,000 Mg PO BID Crestor (Rosuvastatin Calcium) 10 Mg Tablet 10 Mg PO DAILY Aspirin 325 Mg Tablet 325 Mg PO Exam Vital Signs Vital Signs Date Time Temp Pulse Resp B/P (MAP) Pulse Ox O2 Delivery O2 Flow Rate FiO2 02/06/18 10:54 98.7 65 16 115/67 (83) 90 Room Air COURSE Allergies Coded Allergies Type Severity Reaction Last Updated Verified No Known Drug Allergies 08/14/15 No Laboratory Tests Test 02/05/18 14:50 02/05/18 16:51 02/05/18 20:12 02/06/18 06:43 Sodium Level 126 mmol/L (136-145) 132 mmol/L (136-145) Potassium Level 3.9 mmol/L (3.5-5.1) 4.9 mmol/L (3.5-5.1) Chloride Level 93 mmol/L (98-107) 100 mmol/L (98-107) Carbon Dioxide Level 26 mmol/L (21-32) 28 mmol/L (21-32) Anion Gap 7 (6-14) 4 (6-14) Blood Urea Nitrogen 5 mg/dL (7-20) 7 mg/dL (7-20) Creatinine 0.7 mg/dL (0.6-1.0) 0.7 mg/dL (0.6-1.0) Estimated GFR (Cockcroft-Gault) 87.5 87.5 Glucose Level 103 mg/dL (70-99) 136 mg/dL (70-99) Calcium Level 7.8 mg/dL (8.5-10.1) 7.9 mg/dL (8.5-10.1) Glucose (Fingerstick) 109 mg/dL (70-99) 215 mg/dL (70-99) Prothrombin Time 9.9 SEC (9.4-11.4) Prothromb Time International Ratio 1.0 (0.9-1.1) Ammonia < 10 mcmol/L (11-34) Triglycerides Level 37 mg/dL (0-150) Cholesterol Level 159 mg/dL (0-200) LDL Cholesterol, Calculated 34 mg/dL (0-100) VLDL Cholesterol, Calculated 7 mg/dL (0-40) Non-HDL Cholesterol Calculated 41 mg/dL (0-129) HDL Cholesterol 118 mg/dL (40-60) Cholesterol/HDL Ratio 1.0 Test 02/06/18 07:32 02/06/18 11:32 Glucose (Fingerstick) 120 mg/dL (70-99) 221 mg/dL (70-99) Current Medications Medications (Trade) Dose Ordered Sig/Roque Route PRN Reason Start Time Stop Time Status Last Admin Dose Admin Influenza Virus Vaccine (Afluria Trivalent [id number] Syringe) 0.5 ml ONCE ONCE VAX IM 02/06/18 09:00 02/06/18 09:01 DC 02/06/18 08:24 Calcium Carbonate/ Glycine (Tums) 500 mg PRN AFTMEALHC PRN PO INDIGESTION 02/05/18 20:00 02/05/18 21:27 Al Hydroxide/Mg Hydroxide (Mylanta Plus Xs) 30 ml PRN Q2HR PRN PO DYSPEPSIA 02/05/18 20:00 Amlodipine Besylate (Norvasc) 10 mg DAILY PO 02/07/18 09:00 I & O 02/06/18 00:00 Intake Total 2425 ml Output Total 1200 ml Balance 1225 ml Orders Procedure Category Date Status Time Airway Inhalation RT 02/05/18 Complete Treatment 21:00 Airway Inhalation RT 02/06/18 Complete Treatment 09:00 Airway Inhalation RT 02/06/18 Logged Treatment 21:00 Airway Inhalation RT 02/07/18 Logged Treatment 09:00 Airway Inhalation RT 02/07/18 Logged Treatment 21:00 Airway Inhalation RT 02/08/18 Logged Treatment 09:00 Airway Inhalation RT 02/08/18 Logged Treatment 21:00 Airway Inhalation RT 02/09/18 Logged Treatment 09:00 Airway Inhalation RT 02/09/18 Logged Treatment 21:00 Airway Inhalation RT 02/10/18 Logged Treatment 09:00 Airway Inhalation RT 02/10/18 Logged Treatment 21:00 Airway Inhalation RT 02/11/18 Logged Treatment 09:00 Airway Inhalation RT 02/11/18 Logged Treatment 21:00 Airway Inhalation RT 02/12/18 Logged Treatment 09:00 Airway Inhalation RT 02/12/18 Logged Treatment 21:00 Airway Inhalation RT 02/13/18 Logged Treatment 09:00 Airway Inhalation RT 02/13/18 Logged Treatment 21:00 Airway Inhalation RT 02/14/18 Logged Treatment 09:00 Airway Inhalation RT 02/14/18 Logged Treatment 21:00 Airway Inhalation RT 02/15/18 Logged Treatment 09:00 Airway Inhalation RT 02/15/18 Logged Treatment 21:00 Airway Inhalation RT 02/16/18 Logged Treatment 09:00 Airway Inhalation RT 02/16/18 Logged Treatment 21:00 Airway Inhalation RT 02/17/18 Logged Treatment 09:00 Airway Inhalation RT 02/17/18 Logged Treatment 21:00 Airway Inhalation RT 02/18/18 Logged Treatment 09:00 Airway Inhalation RT 02/18/18 Logged Treatment 21:00 Airway Inhalation RT 02/19/18 Logged Treatment 09:00 Airway Inhalation RT 02/19/18 Logged Treatment 21:00 Airway Inhalation RT 02/20/18 Logged Treatment 09:00 Airway Inhalation RT 02/20/18 Logged Treatment 21:00 Airway Inhalation RT 02/21/18 Logged Treatment 09:00 Airway Inhalation RT 02/21/18 Logged Treatment 21:00 Airway Inhalation RT 02/22/18 Logged Treatment 09:00 Airway Inhalation RT 02/22/18 Logged Treatment 21:00 Insert Straight MARY 02/05/18 In Process Catheter Prn 18:17 Pt. On Electrolyte MARY 02/05/18 In Process Protocol 19:42 Calcium Carbonate PHA 02/05/18 In Process (Tums) 20:00 Mag Hydrox/Al PHA 02/05/18 In Process Hydrox/Simeth 20:00 Lipid Panel LAB 10/22/18 Complete 09:48 Amlodipine Besylate PHA 02/07/18 In Process ([facility]) 09:00 Vital Signs Date Time Temp Pulse Resp B/P (MAP) Pulse Ox O2 Delivery O2 Flow Rate FiO2 02/06/18 10:54 98.7 65 16 115/67 (83) 90 Room Air TODD RILEY DO Feb 06, 2018 14:48
[2018-02-07] MEDS ORDERED: amLODIPine BESYLATE 10 MG TABLET PO SCH (09:00)
== END 2018-02-06 15:30 | disposition home or self-care (01) | DRG 638 ==
LOC: ER 03:47 → UNDOADMIN 06:51 → 1 SOUTH 06:51
PROVIDERS: ADMIT Internal Medicine; ATTEND Internal Medicine
DX: E11.649 Type 2 diabetes mellitus with hypoglycemia without coma (principal); E87.1 Hypo-osmolality and hyponatremia; E46 Unspecified protein-calorie malnutrition; E83.52 Hypercalcemia; E11.42 Type 2 diabetes mellitus with diabetic polyneuropathy; E11.51 Type 2 diabetes mellitus with diabetic peripheral angiopathy without gangrene; E78.00 Pure hypercholesterolemia, unspecified; F17.210 Nicotine dependence, cigarettes, uncomplicated; I10 Essential (primary) hypertension; F10.20 Alcohol dependence, uncomplicated; R29.6 Repeated falls; I25.10 Atherosclerotic heart disease of native coronary artery without angina pectoris; E78.5 Hyperlipidemia, unspecified; J44.9 Chronic obstructive pulmonary disease, unspecified; K21.9 Gastro-esophageal reflux disease without esophagitis; Z98.51 Tubal ligation status; Z82.49 Family history of ischemic heart disease and other diseases of the circulatory system; Z95.5 Presence of coronary angioplasty implant and graft; I25.2 Old myocardial infarction; Z79.899 Other long term (current) drug therapy; Z91.14 Patient's other noncompliance with medication regimen; Z68.26 Body mass index [BMI] 26.0-26.9, adult; Z71.6 Tobacco abuse counseling; Z23 Encounter for immunization; G92 Toxic encephalopathy
CPT/HCPCS: 36415; 80048; 80053; 80061; 82140; 82947; 83690; 85025; 85610; 90471; 90756; 94640; 96365; 96375; G0480; J1815; J2405; J7626; S0028; 97530; 99285-25; J7030; Q2035

== ENCOUNTER 2018-07-10 11:05 | Inpatient (IN) | payer MEDICARE, OTHER ==
[~2018-07-10] VITALS: Ht 170.2 cm; Wt 72.1 kg
[~2018-07-10 11:05] MED LIST changes: +CLOP75TA57 PO; +LOSA50TA86 PO
[2018-07-10] MEDS ORDERED: IV NORMAL SALINE 1,000ML 1,000 ML IV SCH (11:37)
[2018-07-10 11:45] LABS: BILIRUBIN,URINE NEG (NEG); CLARITY,URINE BLOODY; COLOR,URINE BROWN
[2018-07-10 11:46] LABS: BACTERIA,URINE MANY /HPF (0-FEW); RBC,URINE >40 /HPF (0-2); SQUAMOUS EPITHELIAL CELL,UR FEW /LPF; WBC,URINE >40 /HPF (0-4)
[2018-07-10 11:59] LABS: BASO # 0.1 x10^3/uL (0.0-0.2); BASO % 1 % (0-3); EOS % 0 % (0-3); HEMATOCRIT 39.1 % (36.0-47.0); HEMOGLOBIN 13.2 g/dL (12.0-15.5); LYMPH % 9 % (24-48); MEAN CORPUSCULAR HEMOGLOBIN 33 pg (25-35); MEAN CORPUSCULAR HGB CONC 34 g/dL (31-37); MEAN CORPUSCULAR VOLUME 97 fL (79-100); MONO # 0.9 x10^3/uL (0.0-1.1); MONO % 9 % (0-9); NEUT # 8.3 x10^3uL (1.8-7.7); NEUT % 81 % (31-73); PLATELET COUNT 161 x10^3/uL (140-400); RED BLOOD COUNT 4.05 x10^6/uL (3.50-5.40); RED CELL DISTRIBUTION WIDTH 13.9 % (11.5-14.5); WHITE BLOOD COUNT 10.3 x10^3/uL (4.0-11.0)
[2018-07-10] MEDS ORDERED: ONDANSETRON PF 4 MG/2 ML VIAL. IV ONE (12:00)
[2018-07-10 12:15] LABS: ALBUMIN 2.8 g/dL (3.4-5.0); ALBUMIN/GLOBULIN RATIO 0.6 (1.0-1.7); CALCIUM 9.2 mg/dL (8.5-10.1); POTASSIUM 4.7 mmol/L (3.5-5.1); TOTAL BILIRUBIN 0.6 mg/dL (0.2-1.0); TOTAL PROTEIN 7.7 g/dL (6.4-8.2)
--- NOTE | 2018-07-10 12:29 | RAD ---
PQRS Compliance Statement: One or more of the following individualized dose reduction techniques were utilized for this examination: 1. Automated exposure control 2. Adjustment of the mA and/or kV according to patient size 3. Use of iterative reconstruction technique CT ABDOMEN PELVIS WO CONTRAST Clinical Indication: HEMATURIA, FLANK PAIN BILAT Comparison: CT abdomen and pelvis without contrast, June 21, 2013. Technique: Helical CT imaging of the abdomen and pelvis is performed without IV or oral contrast. Findings: Evaluation of solid organs and bowel is limited without oral and IV contrast, decreasing sensitivity for detection of pathology. In the peripheral left lower lobe, there are a few subcentimeter groundglass nodules that are probably infectious/inflammatory. There is a 5 mm nodule in the right middle lobe, incompletely seen on the first image. There is minimal scarring or atelectasis in the lingula. There is coronary artery disease. Cardiac size is normal. There is moderate fatty infiltration of the liver. Hyperdensity in the gallbladder may be due to sludge. The spleen, pancreas, and right adrenal gland are normal. Left adrenal gland hyperplasia is unchanged. Atherosclerotic abdominal aorta and iliac arteries, no aneurysm. Atherosclerotic arterial calcifications left renal hilum. No renal calculus. No left hydronephrosis. Left ureter is normal. Atherosclerotic arterial calcifications of the right renal hilum. Wall thickening of the right renal pelvis. There is right perinephric stranding. There is proximal right periureteral stranding. The more distal right ureter is normal. There is no ureteral calculus. Please note noncontrast CT is not sensitive for evaluation of pyelonephritis. Stomach unremarkable. No dilated small bowel. The appendix is normal. There is no colon wall thickening. No abdominal adenopathy or free fluid. There is no urinary bladder wall thickening. There is a significant amount of air in the urinary bladder, correlate to whether there has been recent catheterization. Some of the foci of air in the urinary bladder may localize to the wall, for example image 132. Uterus is unremarkable. 2.9 cm right ovary functional cyst. Finding likely physiologic if patient is perimenopausal. No pelvic free fluid. Degenerative spondylosis and vacuum disc phenomenon of L5/S1. Question old fracture of the S5 vertebral body. Question old osteonecrosis of the bilateral femoral heads. IMPRESSION: 1. No obstructive uropathy. Wall thickening of the right renal pelvis and proximal right periureteral stranding suggestive of pyelitis/ascending urinary tract infection. There is right perinephric stranding, cannot exclude pyelonephritis. 2. Significant amount of air in the urinary bladder. Correlate to whether there has been recent catheterization. Cannot exclude that some of the foci of air localize to the urinary bladder wall, therefore cannot exclude emphysematous cystitis. There is no urinary bladder wall thickening. 3. There are a few groundglass nodules in the periphery of the left lower lobe that are probably infectious/inflammatory. 4. Moderate fatty infiltration of the liver. Electronically signed by: Skinny Syed MD (07/10/2018 12:26 PM) [id number]
[2018-07-10] MEDS ORDERED: IV NORMAL SALINE 1,000ML 1,000 ML IV ONE (12:45)
[2018-07-10] MEDS ORDERED: INSULIN REGULAR 100 UNIT/ML 3ML VIAL. IV ONE (13:00)
--- NOTE | 2018-07-10 13:01 | PHYS DOC ---
Past History Past Medical History: COPD, Diabetes, GERD, High Cholesterol, Heart Disease, Hypertension, ND, Other Past Surgical History: Tubal ligation, Other Smoking: Cigarettes, Less than 1pk/day Alcohol Use: Heavy Drug Use: None Adult General Chief Complaint Chief Complaint: BLOOD IN URINE HPI HPI Patient is a 53 year old female who presents with complaining of bloody urine. Patient states she had urinary frequency and dysuria for several days and since yesterday morning had bloody urine with dark-colored blood. Patient complaining of nausea and 4 episodes of vomiting today and subjective fever last night. She states she had 2 episodes of diarrhea. Patient complaining of lower abdominal and right flank pain as a constant and sharp pain and rated her pain 8/10. Patient denies history of kidney stone. Patient has history of diabetes and didn 't check her blood sugar today. Review of Systems Review of Systems Constitutional: Reports subjective fever and chills Eyes: Denies change in visual acuity, redness, or eye pain [] HENT: Denies nasal congestion or sore throat [] Respiratory: Denies cough or shortness of breath [] Cardiovascular: No additional information not addressed in HPI [] GI: Reports abdominal pain, nausea, vomiting, diarrhea [] : Reports dysuria and hematuria Musculoskeletal: Denies back pain or joint pain [] Integument: Denies rash or skin lesions [] Neurologic: Denies headache, focal weakness or sensory changes [] Endocrine: Denies polyuria or polydipsia [] All other systems were reviewed and found to be within normal limits, except as documented in this note. Current Medications Current Medications Current Medications Medications (Trade) Dose Ordered Sig/[facility] Start Time Stop Time Status Last Admin Dose Admin Fentanyl Citrate (Fentanyl 2ml Vial) 50 mcg 1X ONCE 07/10/18 12:00 07/10/18 12:01 DC 07/10/18 12:06 50 MCG Insulin Human Regular (HumuLIN R VIAL) 10 unit 1X ONCE 07/10/18 13:00 07/10/18 13:01 Ondansetron HCl (Zofran) 4 mg 1X ONCE 07/10/18 12:00 07/10/18 12:01 DC 07/10/18 12:05 4 MG Sodium Chloride 1,000 ml @ 1,000 mls/hr 1X ONCE 07/10/18 12:45 07/10/18 13:44 Allergies Allergies Allergies Coded Allergies Type Severity Reaction Last Updated Verified No Known Drug Allergies 08/14/15 No Physical Exam Physical Exam Constitutional: Well developed, moderate distress, non-toxic appearance. [] HENT: Normocephalic, atraumatic, oropharynx dry, no oral exudates, nose normal. [] Eyes: PERRLA, EOMI, conjunctiva normal, no discharge. [] Neck: Normal range of motion, no tenderness, supple, no stridor. [] Cardiovascular:Heart rate regular rhythm, no murmur [] Lungs & Thorax: Bilateral breath sounds clear to auscultation [] Abdomen: Bowel sounds normal, soft, no tenderness, suprapubic guarding, no masses, no pulsatile masses. [] Skin: Warm, dry, no erythema, no rash. [] Back: No tenderness, right CVA tenderness. [] Extremities: No tenderness, no cyanosis, no clubbing, ROM intact, no edema. [] Neurologic: Alert and oriented X 3, normal motor function, normal sensory function, no focal deficits noted. [] Psychologic: Affect normal, judgement normal, mood normal. [] Current Patient Data Vital Signs Vital Signs Date Time Temp Pulse Resp B/P (MAP) Pulse Ox O2 Delivery O2 Flow Rate FiO2 07/10/18 12:06 16 07/10/18 11:20 97.9 92 98 Room Air Lab Results Laboratory Tests Test 07/10/18 11:18 07/10/18 11:45 Urine Collection Type Unknown Urine Color Brown Urine Clarity Bloody Urine pH 5.0 Urine Specific [place] 1.010 Urine Protein (NEG-TRACE) Urine Glucose (UA) mg/dL (NEG) Urine Ketones (Stick) mg/dL (NEG) Urine Blood (NEG) Urine Nitrite (NEG) Urine Bilirubin Neg (NEG) Urine Urobilinogen Dipstick mg/dL (0.2 mg/dL) Urine Leukocyte Esterase (NEG) Urine RBC >40 /HPF (0-2) Urine WBC >40 /HPF (0-4) Urine Squamous Epithelial Cells Few /LPF Urine Bacteria Many /HPF (0-FEW) White Blood Count 10.3 x10^3/uL (4.0-11.0) Red Blood Count 4.05 x10^6/uL (3.50-5.40) Hemoglobin 13.2 g/dL (12.0-15.5) Hematocrit 39.1 % (36.0-47.0) Mean Corpuscular Volume 97 fL (79-100) Mean Corpuscular Hemoglobin 33 pg (25-35) Mean Corpuscular Hemoglobin Concent 34 g/dL (31-37) Red Cell Distribution Width 13.9 % (11.5-14.5) Platelet Count 161 x10^3/uL (140-400) Neutrophils (%) (Auto) 81 % (31-73) H Lymphocytes (%) (Auto) 9 % (24-48) L Monocytes (%) (Auto) 9 % (0-9) Eosinophils (%) (Auto) 0 % (0-3) Basophils (%) (Auto) 1 % (0-3) Neutrophils # (Auto) 8.3 x10^3uL (1.8-7.7) H Lymphocytes # (Auto) 1.0 x10^3/uL (1.0-4.8) Monocytes # (Auto) 0.9 x10^3/uL (0.0-1.1) Eosinophils # (Auto) 0.0 x10^3/uL (0.0-0.7) Basophils # (Auto) 0.1 x10^3/uL (0.0-0.2) Sodium Level 125 mmol/L (136-145) L Potassium Level 4.7 mmol/L (3.5-5.1) Chloride Level 86 mmol/L (98-107) L Carbon Dioxide Level 23 mmol/L (21-32) Anion Gap 16 (6-14) H Blood Urea Nitrogen 9 mg/dL (7-20) Creatinine 1.0 mg/dL (0.6-1.0) Estimated GFR (Cockcroft-Gault) 58.0 BUN/Creatinine Ratio 9 (6-20) Glucose Level 489 mg/dL (70-99) H Lactic Acid Level 2.7 mmol/L (0.4-2.0) H Calcium Level 9.2 mg/dL (8.5-10.1) Total Bilirubin 0.6 mg/dL (0.2-1.0) Aspartate Amino Transferase (AST) 17 U/L (15-37) Alanine Aminotransferase (ALT) 18 U/L (14-59) Alkaline Phosphatase 106 U/L (46-116) Total Protein 7.7 g/dL (6.4-8.2) Albumin 2.8 g/dL (3.4-5.0) L Albumin/Globulin Ratio 0.6 (1.0-1.7) L Lipase 96 U/L (73-393) EKG EKG [] Radiology/Procedures Radiology/Procedures [address] [address] IMAGING REPORT Signed PATIENT: SANDIP GARCÍA V ACCOUNT: [id number] : 1965 LOCATION: ER AGE: 53 SEX: F EXAM STATUS: REG ER ORD. PHYSICIAN: MINDY TINAJERO MD REASON: hematuria with right flank pain PROCEDURE: CT ABDOMEN PELVIS WO CONTRAST PQRS Compliance Statement: One or more of the following individualized dose reduction techniques were utilized for this examination: 1. Automated exposure control 2. Adjustment of the mA and/or kV according to patient size 3. Use of iterative reconstruction technique CT ABDOMEN PELVIS WO CONTRAST Clinical Indication: HEMATURIA, FLANK PAIN BILAT Comparison: CT abdomen and pelvis without contrast, June 21, 2013. Technique: Helical CT imaging of the abdomen and pelvis is performed without IV or oral contrast. Findings: Evaluation of solid organs and bowel is limited without oral and IV contrast, decreasing sensitivity for detection of pathology. In the peripheral left lower lobe, there are a few subcentimeter groundglass nodules that are probably infectious/inflammatory. There is a 5 mm nodule in the right middle lobe, incompletely seen on the first image. There is minimal scarring or atelectasis in the lingula. There is coronary artery disease. Cardiac size is normal. There is moderate fatty infiltration of the liver. Hyperdensity in the gallbladder may be due to sludge. The spleen, pancreas, and right adrenal gland are normal. Left adrenal gland hyperplasia is unchanged. Atherosclerotic abdominal aorta and iliac arteries, no aneurysm. Atherosclerotic arterial calcifications left renal hilum. No renal calculus. No left hydronephrosis. Left ureter is normal. Atherosclerotic arterial calcifications of the right renal hilum. Wall thickening of the right renal pelvis. There is right perinephric stranding. There is proximal right periureteral stranding. The more distal right ureter is normal. There is no ureteral calculus. Please note noncontrast CT is not sensitive for evaluation of pyelonephritis. Stomach unremarkable. No dilated small bowel. The appendix is normal. There is no colon wall thickening. No abdominal adenopathy or free fluid. There is no urinary bladder wall thickening. There is a significant amount of air in the urinary bladder, correlate to whether there has been recent catheterization. Some of the foci of air in the urinary bladder may localize to the wall, for example image 132. Uterus is unremarkable. 2.9 cm right ovary functional cyst. Finding likely physiologic if patient is perimenopausal. No pelvic free fluid. Degenerative spondylosis and vacuum disc phenomenon of L5/S1. Question old fracture of the S5 vertebral body. Question old osteonecrosis of the bilateral femoral heads. IMPRESSION: 1. No obstructive uropathy. Wall thickening of the right renal pelvis and proximal right periureteral stranding suggestive of pyelitis/ascending urinary tract infection. There is right perinephric stranding, cannot exclude pyelonephritis. 2. Significant amount of air in the urinary bladder. Correlate to whether there has been recent catheterization. Cannot exclude that some of the foci of air localize to the urinary bladder wall, therefore cannot exclude emphysematous cystitis. There is no urinary bladder wall thickening. 3. There are a few groundglass nodules in the periphery of the left lower lobe that are probably infectious/inflammatory. 4. Moderate fatty infiltration of the liver. Electronically signed by: Skinny Syed MD (07/10/2018 12:26 PM) [id number] DICTATED AND SIGNED BY: SKINNY SYED MD DATE: 07/10/18 1226 CC: MINDY TINAJERO MD; AMALIA YUN MD ~ Course & Med Decision Making Course & Med Decision Making Pertinent Labs and Imaging studies reviewed. (See chart for details) Evaluation of patient in ER showed 53-year-old female patient with history of diabetes mellitus presented to ER with complaining of hematuria and right flank pain and nausea and vomiting and diarrhea with subjective fever. Patient was afebrile in ER. Patient has right CVA tenderness. Patient had gross hematuria with more than 40 WBC and 40 RBC in her urine. Patient treated with IV fluid, insulin, Zofran, fentanyl and Rocephin and felt better. Blood sugar gradually decreased to 261. CT of upper and pelvis showed right pyelonephritis and air bubbles in bladder without history of recent catheterization. Dr. Doe accepted admission at 1256. Dragon Disclaimer Dragon Disclaimer This electronic medical record was generated, in whole or in part, using a voice recognition dictation system. Departure Departure: Impression: Primary Impression: Acute pyelonephritis Additional Impressions: Hyperglycemia Hematuria Sepsis Disposition: ADMITTED INPATIENT (at 1257) Admitting Physician: Danielle Doe (accepted admission at 1256) Condition: IMPROVED Referrals: AMALIA YUN MD (PCP) Problem Qualifiers Additional Impressions: Hematuria Hematuria type: unspecified type Qualified Codes: R31.9 - Hematuria, unspecified Sepsis Sepsis type: sepsis due to unspecified organism Qualified Codes: A41.9 - Sepsis, unspecified organism MINDY TINAJERO MD Jul 10, 2018 13:01
[2018-07-10] MEDS ORDERED: IV NORMAL SALINE 50ML 50 ML ONE (13:45)
[2018-07-10] MEDS ORDERED: cefTRIAXone SODIUM 1 GM VIAL ONE (13:45)
[2018-07-10] MEDS ORDERED: SAXA5TAB PO (15:05)
[2018-07-10 15:10] VITALS: BP 117/64
[2018-07-10] MEDS: IV NORMAL SALINE 1,000ML 1,000 ML IV SCH ×2 (15:43→23:57)
[2018-07-10] MEDS: NICOTINE 21MG PATCH. TD SCH (16:40)
[2018-07-10] MEDS ORDERED: DEXTROSE 50% 25 GM / 50ML DISP.SYRIN. IV PRN (18:15)
[2018-07-10 18:21] VITALS: BP 124/80
[2018-07-10] MEDS: METOPROLOL TART IMMED RELEASE 50 MG TABLET PO SCH (19:36)
[2018-07-10] MEDS: LACTOBACILLUS RHAMNOSUS GG 1 CAPSULE. PO SCH (19:37)
[2018-07-10] MEDS: INSULIN LISPRO 300 UNITS/3 ML INSULN.PEN. SQ SCH (21:55)
[2018-07-10 23:38] VITALS: BP 130/80
[2018-07-11 05:24] VITALS: BP 137/77
[2018-07-11] MEDS: IV NORMAL SALINE 1,000ML 1,000 ML IV SCH ×2 (07:38→14:04)
[2018-07-11] MEDS ORDERED: INSULIN LISPRO 300 UNITS/3 ML INSULN.PEN. SQ SCH (08:00)
[2018-07-11] MEDS: LACTOBACILLUS RHAMNOSUS GG 1 CAPSULE. PO SCH ×2 (08:01→19:46)
[2018-07-11] MEDS: NICOTINE 21MG PATCH. TD SCH (08:01)
[2018-07-11] MEDS: PANTOPRAZOLE 40 MG TABLET. PO SCH (08:02)
[2018-07-11] MEDS: LOSARTAN 50 MG TABLET. PO SCH (08:02)
[2018-07-11] MEDS: ATORVASTATIN CALCIUM 20 MG TABLET PO SCH (08:02)
[2018-07-11] MEDS: amLODIPine BESYLATE 5 MG TABLET PO SCH (08:02)
[2018-07-11] MEDS: CLOPIDOGREL BISULFATE 75 MG TABLET PO SCH (08:03)
[2018-07-11] MEDS: METOPROLOL TART IMMED RELEASE 50 MG TABLET PO SCH ×2 (08:03→19:47)
[2018-07-11] MEDS: metFORMIN 500 MG TABLET PO SCH (08:03)
[2018-07-11] MEDS: ASPIRIN 81 MG TAB.CHEW PO SCH (08:03)
[2018-07-11] MEDS: INSULIN LISPRO 300 UNITS/3 ML INSULN.PEN. SQ SCH ×3 (08:11→17:02)
[2018-07-11] MEDS: SAXAGLIPTIN HCL PO SCH (08:20)
[2018-07-11 10:43] VITALS: BP 112/68
[2018-07-11 12:37] LABS: HEMATOCRIT 34.7 % (36.0-47.0); HEMOGLOBIN 11.8 g/dL (12.0-15.5); RED BLOOD COUNT 3.64 x10^6/uL (3.50-5.40); RED CELL DISTRIBUTION WIDTH 13.7 % (11.5-14.5); WHITE BLOOD COUNT 8.3 x10^3/uL (4.0-11.0)
[2018-07-11 12:44] LABS: ALBUMIN 2.3 g/dL (3.4-5.0); ALBUMIN/GLOBULIN RATIO 0.6 (1.0-1.7); CALCIUM 8.6 mg/dL (8.5-10.1); CREATININE 0.7 mg/dL (0.6-1.0); GFR 87.5; POTASSIUM 4.1 mmol/L (3.5-5.1); TOTAL BILIRUBIN 0.5 mg/dL (0.2-1.0); TOTAL PROTEIN 6.4 g/dL (6.4-8.2)
[2018-07-11] MEDS ORDERED: HALOPERIDOL LACT 5 MG/ML VIAL. IM PRN (13:15)
[2018-07-11] MEDS ORDERED: chlordiazePOXIDE HCL 25 MG CAPSULE PO PRN (13:15)
[2018-07-11] MEDS ORDERED: cloNIDine HCL 0.1 MG TABLET PO PRN (13:15)
[2018-07-11] MEDS ORDERED: LORazepam 1 MG TABLET PO PRN (13:15)
[2018-07-11] MEDS ORDERED: DEXTROSE 50% 25 GM / 50ML DISP.SYRIN. IV PRN (13:15)
[2018-07-11] MEDS: MVI, ADULT NO.4 WITH VIT K 10 ML, THIAMINE INJ 100 MG, FOLIC ACID INJ 1 MG in IV NORMAL... IV SCH ×4 (14:00)
--- NOTE | 2018-07-11 14:21 | HP ---
ADMIT DATE: 07/10/2018 HISTORY OF PRESENT ILLNESS: The patient is a 53-year-old female patient, who came to the Emergency Room, complaining of hematuria. She stated that she has urinary frequency and dysuria for several days. Since Tuesday morning, had bloody urine, dark colored blood. She also complained of nausea and 4 episodes of vomiting and today is on admission and subjective fever the night before. She stated that she has 2 episodes of diarrhea. The patient is complaining also of the lower abdominal and right flank pain as a constant sharp pain that she rated as 8/10 and denied any history of kidney stones before. She also complained of being dizzy and was extensively investigated in the Emergency Room. Her lab work was remarkable for hyponatremia, probably dilutional. She has also mild lactic acidosis of 2.7 and urinalysis was consistent with urinary tract infection. She had a CT scan of the abdomen and pelvis, which showed no obstructive uropathy; however, she has wall thickening of the right renal pelvis and proximal right periureteral stranding, suggestive pyelitis ascending urinary tract infection. There is right perinephric stranding and cannot exclude pyelonephritis. She has significant amount of air in the urinary bladder, correlate to whether there has been recent catheterization, cannot exclude that some of the foci localized to the urine in the bladder wall could be representing emphysematous cystitis and no urinary bladder wall thickening. She has moderate fatty infiltration of the liver. The patient was admitted with acute right side pyelonephritis. She was started on IV Rocephin, IV fluid and insulin. PAST MEDICAL HISTORY: Significant for type 2 diabetes mellitus, hypertension, peripheral vascular disease with 5 stents to her both lower extremities. She has hyperlipidemia, coronary artery disease, status post myocardial infarction x 2 with PCI and stent deployment times x2, recurrent urinary tract infection, COPD, osteoarthritis, and peripheral neuropathy. PAST SURGICAL HISTORY: Significant for cataract, PCI with stent deployment x 7. She has tubal ligation, and she did have colonoscopy. ALLERGIES: She has no known drug allergies. MEDICATIONS: She is currently on following medications: She is on Plavix 75 mg once a day, Crestor 10 mg once a day, metoprolol tartrate 100 mg twice a day, amlodipine 5 mg once a day, losartan potassium 50 mg daily, aspirin 81 mg once a day, Flovent 110 mcg 2 puffs twice a day, Protonix 40 mg once a day, metformin 2000 mg daily and Onglyza 1 tablet p.o. daily. FAMILY HISTORY: Her brother and sister both older and both disease because of myocardial infarction. Her father at age of 57 because of myocardial infarction. Mother at the age of 59 because of advanced COPD and myocardial infarction. SOCIAL HISTORY: She is , has 2 daughters and one son. She continued to smoke 1 pack a day and drinks about 6 packs of beer every day. She does not use any drugs. She used to work for [employer] and retired when she had had her first myocardial infarction. REVIEW OF SYSTEMS: The patient has had bilateral cataract extraction, but denied any glaucoma or macular degeneration. Denied any earache, tinnitus or sensorineural deafness. Denied any nosebleeds, stuffy nose or postnasal drip. Denied any sore throat, sore tongue, toothache, hoarseness of voice or difficulty swallowing. Did complain of nausea and vomiting as well as diarrhea. Denied any hematemesis, melena or hematochezia. Did complain of frequency, dysuria and hematuria. Denied any chest pain, shortness of breath, orthopnea, paroxysmal nocturnal dyspnea. Denied any cough, phlegm or hemoptysis. Did complain of dizziness and lightheadedness. Did complain of subjective fever. PHYSICAL EXAMINATION: GENERAL: On arrival to the Emergency Room, she was slightly pale, but no jaundice, cyanosis, or thyromegaly. No jugular venous distension. No limb edema. VITAL SIGNS: Her heart rate was 92, blood pressure was 142/66, her temperature was 97.9, respiratory rate was 20, and oxygen saturation was 98% on room air. HEAD, EYES, EARS, NOSE AND THROAT: Showed normocephalic, atraumatic. NECK: Supple. HEART: Showed normal first and second sounds. No gallop, rub or murmur. CHEST: Shows central trachea, equal bilateral expansion, air entry, vesicular sounds, very few scattered rhonchi, could not appreciate any crepitation. ABDOMEN: Distended, soft with tenderness mostly in the right flank area. There is no guarding or rigidity. No organomegaly. All hernial orifice intact. Bowel sounds normal. NEUROLOGIC: She is awake, alert, responding appropriately. All cranial nerves intact. EXTREMITIES: She moves extremities without difficulty. She ambulates without assistance or assistive devices. LABORATORY DATA: On admission showed a white cell count of 10,300, hemoglobin 13.2, hematocrit 39, MCV 97, and platelet count of 81,000. Her chemistry showed a serum sodium of 125, potassium 4.7, chloride 86, bicarbonate 23, anion gap of 16, BUN 9, creatinine 1, estimated GFR was 58 mL per minute. Her glucose was 489, lactic acid was 2.7. Calcium was 9.2. Total bilirubin, AST, ALT, alkaline phosphatase were normal. Total protein was 7.7, albumin 2.8. Lipase was 96. Her urinalysis showed the urine was cloudy with a pH of 5, specific gravity of 1.010. There was more than 40 wbc's, more than 40 rbc's and too many bacteria. Her CT scan of the abdomen and pelvis showed that she has wall thickening of the right renal pelvis and proximal right periureteral stranding suggestive pyelitis ascending urinary tract infection. She has also right perinephric stranding and pyelonephritis cannot be excluded. She has significant amount of air in the urinary bladder with possible emphysematous cystitis. There are few ground glass nodules in the periphery of the left lower lobe, probably infectious and inflammatory. She has also moderate fatty infiltration of the liver. The patient was admitted with acute pyelonephritis. She is continued on IV fluid, IV antibiotics in the form of Rocephin as well as insulin sliding scale, obviously after sending urine and blood for culture and sensitivity. CASIMIRO LUCERO MD DR: ODIN/johnna JOB#: [id number] / [id number]
[2018-07-11 15:02] VITALS: BP 120/74
[2018-07-11] MEDS: CALCIUM CARBONATE 500 MG TAB.CHEW PO PRN ×2 (15:47→19:47)
[2018-07-11 19:55] VITALS: BP 137/75
[2018-07-11 23:06] VITALS: BP_SYST 131; BP_SYST 148; BP_DIAS 64; BP_DIAS 76
--- NOTE | 2018-07-11 23:21 | PN ---
DATE: 07/11/2018 SUBJECTIVE: The patient is resting slightly propped up in bed, no apparent distress. She continued to complain of pain in her right flank area and also some dark bloody urine, although she has no fever. She has had no more episodes of nausea or vomiting, no diarrhea. PHYSICAL EXAMINATION: GENERAL: When I examined her today, she looked well, somewhat plethoric but no jaundice, cyanosis or thyromegaly. No jugular venous distention. No limb edema. VITAL SIGNS: Her heart rate was 56, blood pressure was 112/68, temperature was 98.6, respiratory rate 20, and oxygen saturation was 92%. HEAD, EYES, EARS, NOSE AND THROAT: Showed normocephalic, atraumatic. NECK: Supple. HEART: Showed normal first and second heart sounds with no gallop, rub or murmur. CHEST: Clear to auscultation. No crepitation or rhonchi. ABDOMEN: Distended, soft, and nontender. FLANK: She has tenderness mostly in the right flank area. NEUROLOGIC: She is awake, alert, and responding appropriately. All cranial nerves intact. She moves extremities without difficulty. Her intake over the last 24 hours was 4500, output was 1700. LABORATORY DATA: This morning showed her white cell count is down to 8300, hemoglobin 11.8, hematocrit 35, MCV 95, and platelet count of 154,000. Her chemistry showed serum sodium is better up to 129, potassium 4.1, chloride 96, bicarbonate 22, anion gap of 11, BUN 9, creatinine 0.7, and estimated GFR was 87 mL per minute. Her glucose was 263, calcium was 8.6. Total bilirubin, AST, ALT, alkaline phosphatase were normal. Total protein was 6.4, albumin 2.3. ASSESSMENT: 1. Acute pyelonephritis for which she is on IV Rocephin. Her white cell count is trending down. There is no culture and sensitivity available at the time of this dictation. 2. Type 2 diabetes mellitus, suboptimally controlled. We will start her on insulin sliding scale using a high dose. 3. Hypertension seems to be well controlled. 4. Peripheral vascular disease, status post 5 stents both lower extremities. Currently asymptomatic. 5. Hyperlipidemia, on Crestor. 6. Myocardial infarction x 2 ____ PCI with stent deployment, currently chest pain free. 7. Chronic obstructive pulmonary disease. 8. Peripheral neuropathy. PLAN: My plan is to continue with the IV Rocephin. Continue IV fluids. We will start her on alcohol withdrawal protocol, given that she drinks 6 packs a day. Monitor her lab work and her urine and blood culture and adjust antibiotics accordingly. CASIMIRO LUCERO MD DR: ODIN/johnna JOB#: [id number] / [id number]
[2018-07-12] MEDS: IV NORMAL SALINE 1,000ML 1,000 ML IV SCH ×2 (00:59→07:30)
[2018-07-12 05:28] VITALS: BP 133/72
[2018-07-12 06:10] LABS: HEMATOCRIT 33.4 % (36.0-47.0); HEMOGLOBIN 11.4 g/dL (12.0-15.5); RED BLOOD COUNT 3.5 x10^6/uL (3.50-5.40); RED CELL DISTRIBUTION WIDTH 13.6 % (11.5-14.5); WHITE BLOOD COUNT 6.1 x10^3/uL (4.0-11.0)
[2018-07-12 06:27] LABS: ALBUMIN 2.2 g/dL (3.4-5.0); ALBUMIN/GLOBULIN RATIO 0.5 (1.0-1.7); CALCIUM 8.6 mg/dL (8.5-10.1); CREATININE 0.6 mg/dL (0.6-1.0); GFR 104.6; POTASSIUM 3.4 mmol/L (3.5-5.1); TOTAL BILIRUBIN 0.4 mg/dL (0.2-1.0); TOTAL PROTEIN 6.3 g/dL (6.4-8.2)
[2018-07-12] MEDS: MVI, ADULT NO.4 WITH VIT K 10 ML, THIAMINE INJ 100 MG, FOLIC ACID INJ 1 MG in IV NORMAL... IV SCH ×4 (07:34)
[2018-07-12] MEDS: INSULIN LISPRO 300 UNITS/3 ML INSULN.PEN. SQ SCH ×2 (08:00→11:55)
[2018-07-12] MEDS ORDERED: POTASSIUM CHLORIDE 20 MEQ TABLET.ER. PO ONE (08:00)
[2018-07-12] MEDS: ASPIRIN 81 MG TAB.CHEW PO SCH (08:24)
[2018-07-12] MEDS: PANTOPRAZOLE 40 MG TABLET. PO SCH (08:25)
[2018-07-12] MEDS: CLOPIDOGREL BISULFATE 75 MG TABLET PO SCH (08:25)
[2018-07-12] MEDS: ATORVASTATIN CALCIUM 20 MG TABLET PO SCH (08:25)
[2018-07-12] MEDS: amLODIPine BESYLATE 5 MG TABLET PO SCH (08:26)
[2018-07-12] MEDS: METOPROLOL TART IMMED RELEASE 50 MG TABLET PO SCH (08:26)
[2018-07-12] MEDS: LACTOBACILLUS RHAMNOSUS GG 1 CAPSULE. PO SCH (08:26)
[2018-07-12] MEDS: metFORMIN 500 MG TABLET PO SCH (08:26)
[2018-07-12] MEDS: LOSARTAN 50 MG TABLET. PO SCH (08:27)
[2018-07-12] MEDS: NICOTINE 21MG PATCH. TD SCH (08:27)
[2018-07-12] MEDS: SAXAGLIPTIN HCL PO SCH (08:32)
[2018-07-12] MEDS ORDERED: MULTIVITAMIN with MINERAL TABLET. PO SCH (09:00)
[2018-07-12] MEDS ORDERED: FOLIC ACID 1 MG TABLET PO SCH (09:00)
[2018-07-12 10:25] VITALS: BP 127/66
[2018-07-12] MEDS: CALCIUM CARBONATE 500 MG TAB.CHEW PO PRN (11:01)
[2018-07-12] MEDS ORDERED: CEFD300C PO (12:58)
--- NOTE | 2018-07-12 13:40 | DS ---
DATE OF DISCHARGE: HOSPITAL COURSE: The patient is a 53-year-old female patient who came today was admitted to the Emergency Room with complaint of urinary frequency, dysuria and also hematuria. She also complained of nausea and 4 episodes of vomiting as well as 2 episodes of diarrhea and right flank pain, this is a constant sharp pain that she rated as 8/10. She was hyponatremic with mild lactic acidosis. Urinalysis was consistent with urinary tract infection. CT scan of the abdomen and pelvis showed no obstructive uropathy; however, she has wall thickening of the right renal pelvis and proximal right periureteral stranding suggestive pyelitis, ascending urinary tract infection. There is also right perinephric stranding and cannot exclude pyelonephritis. She was continued on IV fluid and IV Rocephin, and after sending urine for culture as well as blood for culture and sensitivity, her urine culture has grown more than 100,000 colony forming units per mL of Escherichia coli. The sensitivity is still pending at the time of this dictation. The patient wanted to go home despite my explanation to her and we came to the agreement that we will switch her to oral antibiotic provided that she will call us tomorrow again to inquire about the culture and sensitivity as we might have to change her antibiotic. PHYSICAL EXAMINATION: GENERAL: When I examined her this afternoon, she looked well and was clearly in no apparent respiratory distress. No pallor, jaundice, cyanosis, or thyromegaly. No jugular venous distension. No lower limb edema. VITAL SIGNS: Heart rate was 63, blood pressure 127/66, temperature was 98.3, respiratory rate was 20, and oxygen saturation was 96%. HEAD, EYES, EARS, NOSE AND THROAT: Normocephalic, atraumatic. NECK: Supple. HEART: Showed normal first and second heart sounds. No gallop, rub or murmur. CHEST: Clear to auscultation. No crepitation or rhonchi. ABDOMEN: Distended, soft, nontender. No guarding or rigidity. No organomegaly. All hernial orifice intact. Bowel sounds normal. NEUROLOGIC: She was awake, alert, responding appropriately. All her cranial nerves intact. EXTREMITIES: She moves extremities without difficulty. She ambulates without assistance or assistive devices. LABORATORY DATA: As of this morning showed a white cell count of 6100, hemoglobin 11.4, hematocrit 33.4, MCV 95, and platelet count 157,000. Her serum sodium was 133, potassium 3.4, chloride 99, bicarbonate 24, anion gap of 10, BUN 5, creatinine 0.6, estimated GFR was 104 mL per minute. Her glucose was 233, calcium was 8.6. Total bilirubin, AST, ALT, alkaline phosphatase were normal. Total protein was 6.3, albumin 2.2. DISCHARGE MEDICATIONS: The patient was discharged home to continue on cefdinir 300 mg twice a day for 7 more days, amlodipine besylate 5 mg once a day, aspirin 81 mg once a day, Plavix 75 mg once a day, Flovent 2 puffs twice a day, losartan potassium 50 mg once a day, metformin 1000 mg twice a day, metoprolol tartrate 100 mg twice a day, Protonix 40 mg once a day, Crestor 10 mg once a day, saxagliptin or Onglyza 5 mg daily. FINAL DISCHARGE DIAGNOSES: 1. Acute pyelonephritis with growth of more than 100,000 colony forming units per mL of Escherichia coli, sensitivity is still pending at the time of this dictation. 2. Type 2 diabetes, suboptimally controlled for which we started her on insulin sliding scale given that her Onglyza is not available here. 3. Hypertension, seems to be well controlled. 4. Peripheral vascular disease, status post 5 stents to the lower extremities. 5. Hyperlipidemia, on Crestor. 6. Myocardial infarction, status post PCI with stent deployment x 2. She is chest pain free. 7. Chronic obstructive pulmonary disease. 8. Peripheral neuropathy. 9. Severe protein-calorie malnutrition. 10. Alcohol and nicotine dependence. CASIMIRO LUCERO MD DR: ODIN/johnna JOB#: [id number] / [id number]
== END 2018-07-12 13:26 | disposition home or self-care (01) | DRG 871 ==
LOC: ER 11:05 → 1 SOUTH 12:59
PROVIDERS: ADMIT Internal Medicine; ATTEND Internal Medicine
DX: A41.9 Sepsis, unspecified organism (principal); E43 Unspecified severe protein-calorie malnutrition; N10 Acute pyelonephritis; E87.1 Hypo-osmolality and hyponatremia; E11.65 Type 2 diabetes mellitus with hyperglycemia; I10 Essential (primary) hypertension; E11.51 Type 2 diabetes mellitus with diabetic peripheral angiopathy without gangrene; E78.5 Hyperlipidemia, unspecified; J44.9 Chronic obstructive pulmonary disease, unspecified; G62.9 Polyneuropathy, unspecified; E78.00 Pure hypercholesterolemia, unspecified; F17.210 Nicotine dependence, cigarettes, uncomplicated; I25.10 Atherosclerotic heart disease of native coronary artery without angina pectoris; K21.9 Gastro-esophageal reflux disease without esophagitis; I25.2 Old myocardial infarction; K76.0 Fatty (change of) liver, not elsewhere classified; Z82.49 Family history of ischemic heart disease and other diseases of the circulatory system; Z82.5 Family history of asthma and other chronic lower respiratory diseases; Z95.5 Presence of coronary angioplasty implant and graft; Z87.440 Personal history of urinary (tract) infections; M19.90 Unspecified osteoarthritis, unspecified site; Z68.24 Body mass index [BMI] 24.0-24.9, adult; Z98.51 Tubal ligation status
CPT/HCPCS: 36415; 74176; 80053; 81001; 82947; 83605; 83690; 85025; 85027; 87040; 87086; 87186; 96361; 96374; 96375; 99406; J0696; J1815; J2405; J3010; 97110; 99285-25; J7030

== ENCOUNTER 2018-11-26 03:33 | Emergency (ER) | payer MEDICARE, MEDICAID ==
[~2018-11-26] VITALS: Ht 170.2 cm; Wt 69.7 kg
[~2018-11-26 03:33] MED LIST changes: +CEFD300C PO; +SAXA5TAB PO
--- NOTE | 2018-11-26 03:35 | ED.ADGEN ---
Past History Past Medical History: COPD, Diabetes, GERD, High Cholesterol, Heart Disease, Hypertension, [place], STD, Other Past Surgical History: Tubal ligation, Other Smoking: Cigarettes, Less than 1pk/day Alcohol Use: Heavy Drug Use: None Adult General Chief Complaint Chief Complaint ",, All I know is am bleeding down there.. I don't know if it is from my butt or vaginal or in my urine.. I woke up and there was blood in my bed.. and blood in bathroom when I went to [facility]...".." I do take some meds to prevent clotting.. but I don't know what they are...".. I think one of them are plavix.. but I don 't know.. I ve been on coumadin before..." HPI HPI Patient is a 53 year old female who presents with above hx and complaints leading from pelvic area. Patient denies any trauma to the vaginal area. Patient denies any recent GI bleeds from rectal area. Patient recently had a stent placed in her left leg at . Patient normally follows with Dr. Mckinney. Patient is unsure of any the meds she takes. Patient states she has been on Coumadin in the past but does not know if she is on Coumadin now. Patient has had a history of genital warts. Patient has not had any vaginal exam per Pap smears recently in the last 5-10 years. She denies any history of instrumentation, vibrator's or recent sex. Hx G4 T4 Review of Systems Review of Systems Constitutional: Denies fever or chills [] Eyes: Denies change in visual acuity, redness, or eye pain [] HENT: Denies nasal congestion or sore throat [] Respiratory: Denies cough or shortness of breath [] Cardiovascular: No additional information not addressed in HPI [] GI: Denies abdominal pain, nausea, vomiting, bloody stools or diarrhea [] : Denies dysuria or hematuria []Complaints of bleeding from vaginal Musculoskeletal: Denies back pain or joint pain [] Integument: Denies rash or skin lesions [] Neurologic: Denies headache, focal weakness or sensory changes [] Endocrine: Denies polyuria or polydipsia [] All other systems were reviewed and found to be within normal limits, except as documented in this note. Family History Family History Non-contributory Current Medications Current Medications Current Medications Medications (Trade) Dose Ordered Sig/Roque Start Time Stop Time Status Last Admin Dose Admin Famotidine (Pepcid Vial) 20 mg 1X ONCE 11/26/18 04:00 11/26/18 04:22 DC 11/26/18 04:56 20 MG Folic Acid (FOLIC ACID SYRINGE for ER) 5 mg STK-MED ONCE 11/26/18 06:32 11/26/18 06:32 DC Insulin Human Regular (HumuLIN R VIAL) 10 unit 1X ONCE 11/26/18 05:45 11/26/18 06:36 DC 11/26/18 06:44 10 UNIT Lactated Ringer's 1,000 ml @ 100 mls/hr Q10H 11/26/18 04:00 11/26/18 13:59 11/26/18 04:56 100 MLS/HR Multivitamins/ Minerals (Infuvite Adult) 10 ml STK-MED ONCE 11/26/18 06:32 11/26/18 06:32 DC Multivitamins/ Minerals 10 ml/ Folic Acid 1 mg/ Thiamine HCl 100 mg/Lactated Ringer's 1,011.2 ml @ 1,011.2 mls/hr 1X ONCE 11/26/18 06:30 11/26/18 07:29 11/26/18 06:41 1,011.2 MLS/HR Ondansetron HCl (Zofran) 8 mg 1X ONCE 11/26/18 05:00 11/26/18 05:38 DC 11/26/18 04:56 8 MG Sodium Bicarbonate (Sodium Bicarb Adult 8.4% Syr) 50 meq 1X STAT 11/26/18 05:43 11/26/18 06:36 DC 11/26/18 06:41 50 MEQ Thiamine HCl (Thiamine Vial) 200 mg STK-MED ONCE 11/26/18 06:32 11/26/18 06:32 DC See Nursing Allergies Allergies Allergies Coded Allergies Type Severity Reaction Last Updated Verified No Known Drug Allergies 11/26/18 No Physical Exam Physical Exam Constitutional: Moderate acute distress, non-toxic appearance. [] HENT: Normocephalic, atraumatic, bilateral external ears normal, oropharynx moist, no oral exudates, nose normal. [] Eyes: PERRLA, EOMI, conjunctiva normal, no discharge. [] Glasses. Neck: Normal range of motion, no tenderness, supple, no stridor. [] Cardiovascular: Regular Heart rate and rhythm rhythm, no murmur []PMI to the left Lungs & Thorax: Bilateral breath sounds equal apex with scattered wheezes throughout auscultation [] Abdomen: Bowel sounds normal, soft, no tenderness, no masses, no pulsatile masses. [] Pt. pelvic exam shows no blood from os, has HPV. Has a 1 cm ulcer along vagina opening that has active bleeding. No rectal bleeding. Skin: Warm, dry, no erythema, no rash. [] Poor turgor Back: No tenderness, no CVA tenderness. [] Extremities: No tenderness, no cyanosis, no clubbing, ROM intact, no edema. [] Markedly decreased pulses in both feet. Neurologic: Alert and oriented X 3, moves all ext. on request, decreased planter sensation, , no focal deficits noted. [] Psychologic: Affect anxious, judgement appears impaired. mood normal. [] Current Patient Data Vital Signs Vital Signs Date Time Temp Pulse Resp B/P (MAP) Pulse Ox O2 Delivery O2 Flow Rate FiO2 11/26/18 05:30 70 30 150/75 (100) 93 Nasal Cannula 2.0 11/26/18 03:35 98.4 Lab Results Laboratory Tests Test 11/26/18 04:15 11/26/18 04:20 White Blood Count 12.5 x10^3/uL (4.0-11.0) H Red Blood Count 4.31 x10^6/uL (3.50-5.40) Hemoglobin 13.8 g/dL (12.0-15.5) Hematocrit 42.0 % (36.0-47.0) Mean Corpuscular Volume 98 fL (79-100) Mean Corpuscular Hemoglobin 32 pg (25-35) Mean Corpuscular Hemoglobin Concent 33 g/dL (31-37) Red Cell Distribution Width 14.2 % (11.5-14.5) Platelet Count 277 x10^3/uL (140-400) Neutrophils (%) (Auto) 62 % (31-73) Lymphocytes (%) (Auto) 28 % (24-48) Monocytes (%) (Auto) 9 % (0-9) Eosinophils (%) (Auto) 1 % (0-3) Basophils (%) (Auto) 1 % (0-3) Neutrophils # (Auto) 7.7 x10^3uL (1.8-7.7) Lymphocytes # (Auto) 3.5 x10^3/uL (1.0-4.8) Monocytes # (Auto) 1.1 x10^3/uL (0.0-1.1) Eosinophils # (Auto) 0.1 x10^3/uL (0.0-0.7) Basophils # (Auto) 0.1 x10^3/uL (0.0-0.2) Prothrombin Time < 9.3 SEC (9.4-11.4) L Prothrombin Time INR 0.9 (0.9-1.1) Activated Partial Thromboplast Time 31 SEC (23-33) D-Dimer (Malathi) 0.83 mg/L (0.00-0.50) H Sodium Level 122 mmol/L (136-145) L Potassium Level 4.5 mmol/L (3.5-5.1) Chloride Level 85 mmol/L (98-107) L Carbon Dioxide Level 24 mmol/L (21-32) Anion Gap 13 (6-14) Blood Urea Nitrogen 8 mg/dL (7-20) Creatinine 1.0 mg/dL (0.6-1.0) Estimated GFR (Cockcroft-Gault) 58.0 Glucose Level 494 mg/dL (70-99) H Calcium Level 9.0 mg/dL (8.5-10.1) Magnesium Level 2.1 mg/dL (1.8-2.4) Total Bilirubin 0.2 mg/dL (0.2-1.0) Direct Bilirubin 0.1 mg/dL (0.0-0.2) Aspartate Amino Transferase (AST) 11 U/L (15-37) L Alanine Aminotransferase (ALT) 18 U/L (14-59) Alkaline Phosphatase 132 U/L (46-116) H Creatine Kinase 23 U/L (26-192) L Troponin I Quantitative < 0.017 ng/mL (0-0.055) IX-Pkf-M-Type Natriuretic Peptide 556 pg/mL (0-124) H Total Protein 7.9 g/dL (6.4-8.2) Albumin 3.2 g/dL (3.4-5.0) L Lipase 164 U/L (73-393) Ethyl Alcohol Level 275 mg/dL (0-10) H Urine Collection Type U cath Urine Color Straw Urine Clarity Hazy Urine pH 5.0 Urine Specific Palms <=1.005 Urine Protein Neg (NEG-TRACE) Urine Glucose (UA) >=1000 mg/dL (NEG) Urine Ketones (Stick) Neg mg/dL (NEG) Urine Blood Mod (NEG) Urine Nitrite Neg (NEG) Urine Bilirubin Neg (NEG) Urine Urobilinogen Dipstick 0.2 mg/dL (0.2 mg/dL) Urine Leukocyte Esterase Trace (NEG) Urine RBC 11-20 /HPF (0-2) Urine WBC 20-40 /HPF (0-4) Urine Squamous Epithelial Cells Few /LPF Urine Bacteria Many /HPF (0-FEW) Urine Opiates Screen Neg (NEG) Urine Methadone Screen Neg (NEG) Urine Barbiturates Neg (NEG) Urine Phencyclidine Screen Neg (NEG) Urine Amphetamine/Methamphetamine Neg (NEG) Urine Benzodiazepines Screen Neg (NEG) Urine Cocaine Screen Neg (NEG) Urine Cannabinoids Screen Neg (NEG) Urine Ethyl Alcohol Pos (NEG) Microbiology 11/26/18 Wet Prep - Final, Complete Microbiology 11/26/18 Wet Prep - Final, Complete EKG EKG I interpretation EKG shows a sinus rhythm at 74 bpm. Does have frequent prematu re ventricular contractions. Also has premature atrial contractions.[] Radiology/Procedures Radiology/Procedures My interpretation of acute abdomen shows COPD on pulmonary portion of acute abdomen. No free air under the diaphragm. Do see multiple arterial stents. Nonspecific bowel gas pattern. Increased stool:[address] [address] IMAGING REPORT Signed PATIENT: SANDIP GARCÍA V ACCOUNT: [id number] : 1965 LOCATION: ER AGE: 53 SEX: F EXAM STATUS: REG ER ORD. PHYSICIAN: CHUN TORRES MD REASON: Vaginal bleed, dyspnea PROCEDURE: ACUTE ABDOMEN SERIES Abdominal Series dated 11/26/2018. No comparison available. Clinical Indication: Abdominal pain. Findings: Single upright PA view the chest shows normal heart and mediastinal contours. The lungs are clear without focal consolidation. Vascular interstitium is within normal limits. Flat and upright views of the abdomen show nondilated gas filled loops of bowel. Moderate stool throughout the colon. There is a vascular stent at the common femoral and common iliac arteries on the right in the common femoral artery on the left. No air-fluid levels. No abnormal calcifications are identified. There is no evidence of pneumoperitoneum. Impression chest: No acute radiographic abnormality. Impression abdomen: Non-obstructive bowel gas pattern. Electronically signed by: Jesus Almazan MD (11/26/2018 6:09 AM) [facility] DICTATED AND SIGNED BY: JESUS ALMAZAN MD DATE: 11/26/1809 CC: CHUN TORRES MD; AMALIA MCKINNEY MD ~ Course & Med Decision Making Course & Med Decision Making Pertinent Labs and Imaging studies reviewed. (See chart for details) Discussed presentation, testing and tx. plan with Dr. Doe. Will accept pt in transfer to [facility]. Obgyn consult. - Discussed with Dr Rudd- advise will see her once hemodynamic stable while in Hospital. Other selby will see her in out pt. visit. [] Final Impression Final Impression 1. Vaginal Bleeding[]- Ulcer 2. Hx PVDz, recent stents 3. Tobacco use 4. PVDz 5. Peripheral neuropathy 6. HPV 7. DM - 494 8. Hyponatremia 122 9. Mild Leukocytosis Dragon Disclaimer Dragon Disclaimer This electronic medical record was generated, in whole or in part, using a voice recognition dictation system. Dragon Disclaimer This chart was dictated in whole or in part using Voice Recognition software in a busy, high-work load, and often noisy Emergency Department environment. It may contain unintended and wholly unrecognized errors or omissions. CHUN TORRES MD Nov 26, 2018 03:35
[2018-11-26] MEDS ORDERED: FAMOTIDINE 20 MG/2 ML VIAL IVP ONE (04:00)
[2018-11-26] MEDS ORDERED: IV RINGERS SOLUTION,LACTATED 1,000 ML IV SCH (04:00)
--- NOTE | 2018-11-26 04:33 | EKG ---
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
[2018-11-26 04:47] LABS: BASO # 0.1 x10^3/uL (0.0-0.2); BASO % 1 % (0-3); EOS # 0.1 x10^3/uL (0.0-0.7); EOS % 1 % (0-3); HEMOGLOBIN 13.8 g/dL (12.0-15.5); LYMPH # 3.5 x10^3/uL (1.0-4.8); LYMPH % 28 % (24-48); MEAN CORPUSCULAR HEMOGLOBIN 32 pg (25-35); MEAN CORPUSCULAR HGB CONC 33 g/dL (31-37); MEAN CORPUSCULAR VOLUME 98 fL (79-100); MONO # 1.1 x10^3/uL (0.0-1.1); MONO % 9 % (0-9); NEUT # 7.7 x10^3uL (1.8-7.7); NEUT % 62 % (31-73); PLATELET COUNT 277 x10^3/uL (140-400); RED BLOOD COUNT 4.31 x10^6/uL (3.50-5.40); RED CELL DISTRIBUTION WIDTH 14.2 % (11.5-14.5); WHITE BLOOD COUNT 12.5 x10^3/uL (4.0-11.0)
[2018-11-26 04:58] LABS: BARBITURATES NEG (NEG); BENZODIAZEPINES NEG (NEG); CANNABINOIDS NEG (NEG); COCAINE NEG (NEG); METHADONE NEG (NEG); OPIATES NEG (NEG); PHENCYCLIDINE NEG (NEG)
[2018-11-26] MEDS ORDERED: ONDANSETRON PF 4 MG/2 ML VIAL. IV ONE (05:00)
[2018-11-26 05:02] LABS: ALBUMIN 3.2 g/dL (3.4-5.0); DIRECT BILIRUBIN 0.1 mg/dL (0.0-0.2); MAGNESIUM 2.1 mg/dL (1.8-2.4); POTASSIUM 4.5 mmol/L (3.5-5.1); TOTAL BILIRUBIN 0.2 mg/dL (0.2-1.0); TOTAL PROTEIN 7.9 g/dL (6.4-8.2)
[2018-11-26 05:05] LABS: BILIRUBIN,URINE NEG (NEG); CLARITY,URINE HAZY; COLOR,URINE STRAW; GLUCOSE,URINE >=1000 mg/dL (NEG); NITRITE,URINE NEG (NEG); UROBILINOGEN,URINE 0.2 mg/dL (0.2 mg/dL); WBC,URINE 20-40 /HPF (0-4)
[2018-11-26 05:06] LABS: BACTERIA,URINE MANY /HPF (0-FEW); SQUAMOUS EPITHELIAL CELL,UR FEW /LPF
[2018-11-26 05:07] LABS: AMPHETAMINE/METHAMPHETAMINE NEG (NEG)
[2018-11-26] MEDS ORDERED: SODIUM BICARB ADULT 8.4% 50 MEQ/50 ML DISP.SYRIN. IV STA (05:43)
[2018-11-26] MEDS ORDERED: INSULIN REGULAR 100 UNIT/ML 3ML VIAL. IV ONE (05:45)
--- NOTE | 2018-11-26 06:12 | RAD ---
Abdominal Series dated 11/26/2018. No comparison available. Clinical Indication: Abdominal pain. Findings: Single upright PA view the chest shows normal heart and mediastinal contours. The lungs are clear without focal consolidation. Vascular interstitium is within normal limits. Flat and upright views of the abdomen show nondilated gas filled loops of bowel. Moderate stool throughout the colon. There is a vascular stent at the common femoral and common iliac arteries on the right in the common femoral artery on the left. No air-fluid levels. No abnormal calcifications are identified. There is no evidence of pneumoperitoneum. Impression chest: No acute radiographic abnormality. Impression abdomen: Non-obstructive bowel gas pattern. Electronically signed by: Jesus Ramirez MD (11/26/2018 6:09 AM) [facility]
[2018-11-26 06:30] VITALS: BP 106/58
[2018-11-26] MEDS ORDERED: MVI, ADULT NO.4 WITH VIT K 10 ML, FOLIC ACID SYRINGE for ER 1 MG, THIAMINE INJ 100 MG i... IV ONE ×4 (06:30)
[2018-11-26] MEDS ORDERED: THIAMINE 200 MG/2 ML VIAL. IV ONE (06:32)
[2018-11-26] MEDS ORDERED: MVI, ADULT NO.4 WITH VIT K 10 ML VIAL IV ONE (06:32)
[2018-11-26] MEDS ORDERED: FOLIC ACID 5 MG/ML SYRINGE for ER IV ONE (06:32)
[2018-11-27 17:07] LABS: CHLAMYDIA PROBE Negative (Negative)
== END 2018-11-26 07:50 | disposition short-term general hospital (02) ==
LOC: ER 03:33
DX: N76.5 Ulceration of vagina (principal); E11.42 Type 2 diabetes mellitus with diabetic polyneuropathy; A63.0 Anogenital (venereal) warts; E87.1 Hypo-osmolality and hyponatremia; D72.829 Elevated white blood cell count, unspecified; I73.9 Peripheral vascular disease, unspecified; J44.9 Chronic obstructive pulmonary disease, unspecified; E11.9 Type 2 diabetes mellitus without complications; K21.9 Gastro-esophageal reflux disease without esophagitis; E78.00 Pure hypercholesterolemia, unspecified; I11.9 Hypertensive heart disease without heart failure; I25.2 Old myocardial infarction; F17.210 Nicotine dependence, cigarettes, uncomplicated; F10.20 Alcohol dependence, uncomplicated; Y90.9 Presence of alcohol in blood, level not specified
CPT/HCPCS: 36415; 51702; 74022; 80048; 80076; 80307; 81001; 82550; 83690; 83735; 83880; 84443; 84484; 85025; 85379; 85610; 85730; 86705; 86709; 86803; 87086; 87340; 87491; 87591; 93005; 96361; 96365; 96375; 99285; G0480; J1815; J2405; J3490; J7120; Q0111

== ENCOUNTER 2018-12-18 21:10 | Inpatient (IN) | payer MEDICARE, MEDICAID ==
[~2018-12-18] VITALS: Ht 167.6 cm; Wt 69.4 kg
[2018-12-18] MEDS ORDERED: MORPHINE SULFATE 2 MG/ML DISP.SYRIN. IV/SQ PRN (21:30)
[2018-12-18] MEDS ORDERED: ONDANSETRON PF 4 MG/2 ML VIAL. ONE (21:36)
[2018-12-18] MEDS ORDERED: MORPHINE SULFATE 2 MG/ML DISP.SYRIN. ONE (21:37)
--- NOTE | 2018-12-18 21:38 | PHYS DOC ---
Past History Past Medical History: COPD, Diabetes, GERD, High Cholesterol, Heart Disease, Hypertension, [place], STD, Other Past Surgical History: Tubal ligation, Other Additional Past Surgical Histo: cardiac and extremity stents Smoking: Cigarettes, Less than 1pk/day Alcohol Use: Heavy Drug Use: None Adult General Chief Complaint Chief Complaint: ABDOMINAL PAIN HPI HPI Patient is a 53-year-old female presents with right lower quadrant and right flank pain that is sharp in nature. It began acutely approximately 2 hours prior to arrival. Patient is taken no medicine for pain. Nothing makes this better or worse. She is similar discomfort when she had previous urinary tract infection and had to be admitted last month. She denies any fever. She also complains of chest pain that gets worse with exertion. No radiation. Describes it as a heaviness. She has a previous history of cardiac stents as well as extremity stents.[] Review of Systems Review of Systems Constitutional: Denies fever or chills [] Eyes: Denies change in visual acuity, redness, or eye pain [] HENT: Denies nasal congestion or sore throat [] Respiratory: Denies cough or shortness of breath [] Cardiovascular: No additional information not addressed in HPI [] GI: See history of present illness[] : Denies dysuria or hematuria [] Musculoskeletal: Denies back pain or joint pain [] Integument: Denies rash or skin lesions [] Neurologic: Denies headache, focal weakness or sensory changes [] Endocrine: Denies polyuria or polydipsia [] All other systems were reviewed and found to be within normal limits, except as documented in this note. Current Medications Current Medications Current Medications Medications (Trade) Dose Ordered Sig/Roque Start Time Stop Time Status Last Admin Dose Admin Metoclopramide HCl (Reglan Vial) 10 mg 1X ONCE 12/18/18 21:30 12/18/18 21:31 UNV Morphine Sulfate (Morphine 2mg Syringe) 2 mg PRN Q15MIN PRN 12/18/18 21:30 12/19/18 21:29 UNV Pantoprazole Sodium (Protonix Vial) 40 mg 1X ONCE 12/18/18 21:30 12/18/18 21:31 UNV Allergies Allergies Allergies Coded Allergies Type Severity Reaction Last Updated Verified No Known Drug Allergies 11/26/18 No Physical Exam Physical Exam Constitutional: Well developed, well nourished, mild to moderate discomfort, non-toxic appearance. [] HENT: Normocephalic, atraumatic, bilateral external ears normal, oropharynx moist, no oral exudates, nose normal. [] Eyes: PERRLA, EOMI, conjunctiva normal, no discharge. [] Neck: Normal range of motion, no tenderness, supple, no stridor. [] Cardiovascular:Heart rate regular rhythm, no murmur [] Lungs & Thorax: Bilateral breath sounds clear to auscultation [] Abdomen: Bowel sounds normal, soft, right sided abdominal tenderness, no rebound, no guarding, no rigidity,, no masses, no pulsatile masses. [] Skin: Warm, dry, no erythema, no rash. [] Back: No tenderness, right flank tenderness. [] Extremities: No tenderness, no cyanosis, no clubbing, ROM intact, no edema. [] Neurologic: Alert and oriented X 3, normal motor function, normal sensory function, no focal deficits noted. [] Psychologic: Affect normal, judgement normal, mood normal. [] EKG EKG [] Radiology/Procedures Radiology/Procedures CT abdomen pelvis without contrast. HISTORY: Right-sided abdominal pain, chronic low back pain CT scan the abdomen and pelvis was done without contrast. There is a subtle small subpleural pulmonary nodule in the right lung without change from the old study. There is an old right rib fracture. There is no effusion. There are no infiltrates in the lung bases. Liver and spleen are unremarkable. There is no calcified gallstone. There is no left renal calculus. There is vascular calcification. There are intrarenal calculi in the right kidney. There is right hydronephrosis and hydroureter. A ureteral calculus is not identified. The patient may have passed a calculus or there may be other etiologies for hydronephrosis. There is perinephric stranding about the right kidney, pyelonephritis is possible. There is no free air or ascites. Appendix is normal. There is no bowel obstruction. Uterus and ovaries are normal. There has been an improvement in the fatty infiltration of the liver compared to the study from June. IMPRESSION: 1. Right hydronephrosis and hydroureter. 2. Intrarenal calculi in the right kidney. 3. A ureteral calculus is not identified at this time. Chest x-ray shows no evidence of an infiltrate, no effusion, no pneumothorax[] Course & Med Decision Making Course & Med Decision Making Pertinent Labs and Imaging studies reviewed. (See chart for details) ED course: Patient arrived, was placed in bed, and tolerated exam well. She was just returned from radiology with any consultations. She was given pain medicine which didn't improve her pain. She was started on IV antibiotics. Consultation was made with the hospital service for admission. She was admitted in improved condition. Decision making: Patient appears to have pyelonephritis. Her diabetes is also poorly controlled. She does not appear to be in diabetic ketoacidosis given the relatively normal bicarbonate. She is being admitted for further care and antibiotic therapy.[] Dragon Disclaimer Dragon Disclaimer This electronic medical record was generated, in whole or in part, using a voice recognition dictation system. Departure Departure: Impression: Primary Impression: Pyelonephritis Additional Impression: Poorly controlled diabetes mellitus Disposition: ADMITTED INPATIENT Admitting Physician: Narciso Bolton Condition: IMPROVED Referrals: AMALIA YUN MD (PCP) Problem Qualifiers OSKAR UMANA DO Dec 18, 2018 21:38
[2018-12-18] MEDS ORDERED: ASPIRIN 81 MG TAB.CHEW PO ONE (22:00)
[2018-12-18] MEDS ORDERED: PANTOPRAZOLE IV 40 MG VIAL. IVP ONE (22:00)
[2018-12-18] MEDS ORDERED: METOCLOPRAMIDE HCL 10 MG/2 ML VIAL. IV ONE (22:00)
[2018-12-18 22:06] LABS: BARBITURATES NEG (NEG); BENZODIAZEPINES NEG (NEG); CANNABINOIDS NEG (NEG); COCAINE NEG (NEG); METHADONE NEG (NEG); OPIATES NEG (NEG); PHENCYCLIDINE NEG (NEG)
[2018-12-18 22:09] LABS: AMPHETAMINE/METHAMPHETAMINE NEG (NEG)
[2018-12-18 22:15] LABS: BACTERIA,URINE MANY /HPF (0-FEW); BILIRUBIN,URINE NEG (NEG); CLARITY,URINE CLOUDY; COLOR,URINE YELLOW; GLUCOSE,URINE >=1000 mg/dL (NEG); NITRITE,URINE POS (NEG); RBC,URINE 20-40 /HPF (0-2); SQUAMOUS EPITHELIAL CELL,UR OCC /LPF; UROBILINOGEN,URINE 0.2 mg/dL (0.2 mg/dL); WBC,URINE 20-40 /HPF (0-4)
[2018-12-18 22:15] LABS: BASO # 0.1 x10^3/uL (0.0-0.2); BASO % 1 % (0-3); EOS # 0.1 x10^3/uL (0.0-0.7); EOS % 1 % (0-3); HEMATOCRIT 42.3 % (36.0-47.0); HEMOGLOBIN 14.2 g/dL (12.0-15.5); LYMPH # 1.7 x10^3/uL (1.0-4.8); LYMPH % 18 % (24-48); MEAN CORPUSCULAR HEMOGLOBIN 32 pg (25-35); MEAN CORPUSCULAR HGB CONC 34 g/dL (31-37); MEAN CORPUSCULAR VOLUME 96 fL (79-100); MONO # 0.5 x10^3/uL (0.0-1.1); MONO % 5 % (0-9); NEUT # 7.2 x10^3uL (1.8-7.7); NEUT % 75 % (31-73); PLATELET COUNT 234 x10^3/uL (140-400); RED CELL DISTRIBUTION WIDTH 13.7 % (11.5-14.5); WHITE BLOOD COUNT 9.6 x10^3/uL (4.0-11.0)
[2018-12-18 22:36] LABS: ALBUMIN 3.5 g/dL (3.4-5.0); ALBUMIN/GLOBULIN RATIO 0.7 (1.0-1.7); CALCIUM 9.2 mg/dL (8.5-10.1); POTASSIUM 4.2 mmol/L (3.5-5.1); TOTAL BILIRUBIN 0.3 mg/dL (0.2-1.0); TOTAL PROTEIN 8.5 g/dL (6.4-8.2)
--- NOTE | 2018-12-18 23:20 | RAD ---
CT abdomen pelvis without contrast. HISTORY: Right-sided abdominal pain, chronic low back pain CT scan the abdomen and pelvis was done without contrast. There is a subtle small subpleural pulmonary nodule in the right lung without change from the old study. There is an old right rib fracture. There is no effusion. There are no infiltrates in the lung bases. Liver and spleen are unremarkable. There is no calcified gallstone. There is no left renal calculus. There is vascular calcification. There are intrarenal calculi in the right kidney. There is right hydronephrosis and hydroureter. A ureteral calculus is not identified. The patient may have passed a calculus or there may be other etiologies for hydronephrosis. There is perinephric stranding about the right kidney, pyelonephritis is possible. There is no free air or ascites. Appendix is normal. There is no bowel obstruction. Uterus and ovaries are normal. There has been an improvement in the fatty infiltration of the liver compared to the study from June. IMPRESSION: 1. Right hydronephrosis and hydroureter. 2. Intrarenal calculi in the right kidney. 3. A ureteral calculus is not identified at this time. PQRS Compliance Statement: One or more of the following individualized dose reduction techniques were utilized for this examination: 1. Automated exposure control 2. Adjustment of the mA and/or kV according to patient size 3. Use of iterative reconstruction technique Electronically signed by: Merrick Villavicencio MD (12/18/2018 11:17 PM) [facility]
[2018-12-18] MEDS ORDERED: ONDANSETRON PF 4 MG/2 ML VIAL. IV PRN (23:30)
[2018-12-18] MEDS ORDERED: ACETAMINOPHEN 325 MG TABLET PO PRN (23:30)
[2018-12-18] MEDS ORDERED: IV NORMAL SALINE 50ML 50 ML ONE (23:40)
[2018-12-18] MEDS ORDERED: cefTRIAXone SODIUM 1 GM VIAL ONE (23:41)
[2018-12-18] MEDS: MORPHINE SULFATE 4 MG/ML DISP.SYRIN. IV PRN (23:50)
[2018-12-19 00:19] VITALS: BP 132/59
[2018-12-19] MEDS: IV NORMAL SALINE 1,000ML 1,000 ML IV SCH ×4 (00:48→23:45)
--- NOTE | 2018-12-19 03:19 | EKG ---
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
--- NOTE | 2018-12-19 04:32 | RAD ---
AP chest. HISTORY: Chest pain AP view was taken of the chest. Heart is within normal limits in size. There is no pleural effusion. There are no acute infiltrates. There is an old right rib fracture. There is mild bowel distention the left upper quadrant of the abdomen. IMPRESSION: 1. No acute chest disease. 2. Mild bowel distention the left upper quadrant. Electronically signed by: Merrick Villavicencio MD (12/19/2018 4:29 AM) [facility]
[2018-12-19 06:07] VITALS: BP 118/70
[2018-12-19 06:46] LABS: BASO # 0.1 x10^3/uL (0.0-0.2); BASO % 1 % (0-3); EOS % 0 % (0-3); HEMATOCRIT 37.1 % (36.0-47.0); HEMOGLOBIN 12.5 g/dL (12.0-15.5); LYMPH # 0.7 x10^3/uL (1.0-4.8); LYMPH % 5 % (24-48); MEAN CORPUSCULAR HEMOGLOBIN 32 pg (25-35); MEAN CORPUSCULAR HGB CONC 34 g/dL (31-37); MEAN CORPUSCULAR VOLUME 95 fL (79-100); MONO # 0.9 x10^3/uL (0.0-1.1); MONO % 7 % (0-9); NEUT # 11.4 x10^3uL (1.8-7.7); NEUT % 87 % (31-73); PLATELET COUNT 206 x10^3/uL (140-400); RED BLOOD COUNT 3.92 x10^6/uL (3.50-5.40); RED CELL DISTRIBUTION WIDTH 13.8 % (11.5-14.5); WHITE BLOOD COUNT 13.1 x10^3/uL (4.0-11.0)
[2018-12-19 07:06] LABS: CALCIUM 8.5 mg/dL (8.5-10.1); CREATININE 0.9 mg/dL (0.6-1.0); GFR 65.5; POTASSIUM 4.8 mmol/L (3.5-5.1)
[2018-12-19] MEDS ORDERED: diphenhydrAMINE 50 MG/ML VIAL IVP PRN (08:00)
[2018-12-19] MEDS ORDERED: HALOPERIDOL LACT 5 MG/ML VIAL. IM PRN (08:00)
[2018-12-19] MEDS ORDERED: chlordiazePOXIDE HCL 25 MG CAPSULE PO PRN ×2 (08:00)
[2018-12-19] MEDS ORDERED: cloNIDine HCL 0.1 MG TABLET PO PRN (08:00)
[2018-12-19] MEDS ORDERED: DEXTROSE 50% 25 GM / 50ML DISP.SYRIN. IV PRN (08:15)
[2018-12-19] MEDS: METOPROLOL TART IMMED RELEASE 50 MG TABLET PO SCH ×2 (09:00→21:04)
[2018-12-19] MEDS ORDERED: LOSARTAN 50 MG TABLET. PO SCH (09:00)
[2018-12-19] MEDS: amLODIPine BESYLATE 5 MG TABLET PO SCH (09:00)
[2018-12-19] MEDS ORDERED: metFORMIN 500 MG TABLET PO SCH (09:00)
[2018-12-19] MEDS: MVI, ADULT NO.4 WITH VIT K 10 ML, THIAMINE INJ 100 MG, FOLIC ACID INJ 1 MG in IV NORMAL... IV SCH ×4 (09:35)
[2018-12-19] MEDS: INSULIN LISPRO 300 UNITS/3 ML VIAL. SQ SCH ×3 (09:44→17:38)
[2018-12-19 11:25] VITALS: BP 109/65
[2018-12-19] MEDS: CLOPIDOGREL BISULFATE 75 MG TABLET PO SCH (11:35)
[2018-12-19] MEDS: ASPIRIN ENTERIC COATED 81 MG TABLET.DR. PO SCH (11:35)
[2018-12-19] MEDS: PANTOPRAZOLE 40 MG TABLET. PO SCH (11:35)
[2018-12-19] MEDS: ATORVASTATIN CALCIUM 20 MG TABLET PO SCH (11:35)
[2018-12-19] MEDS: LINAGLIPTIN 5 MG TABLET PO SCH (11:36)
[2018-12-19] MEDS ORDERED: IPRATRPIUM/ALBUTEROL 0.5/2.5MG 3 ML NEBU. NEB SCH (12:00)
[2018-12-19] MEDS: metFORMIN 500 MG TABLET PO SCH ×2 (13:34→17:35)
[2018-12-19] MEDS ORDERED: IPRATRPIUM/ALBUTEROL 0.5/2.5MG 3 ML NEBU. NEB PRN (13:45)
[2018-12-19] MEDS: NICOTINE 14MG PATCH. TD SCH (14:15)
--- NOTE | 2018-12-19 15:12 | HP ---
ADMIT DATE: 12/18/2018 HISTORY OF PRESENT ILLNESS: The patient is a 53-year-old female patient who came to the Emergency Room with right lower quadrant, right flank pain that is sharp in nature, it begins acutely approximately 2 hours prior to arrival. The patient is taking no medication for pain. Nothing makes this pain better or worse. She has similar discomfort when she had previous urinary tract infection and had to be admitted last month. She denies any fever. She was complaining of chest pain, gets worse with exertion. No radiation. Describes it as heaviness. She has a previous history of cardiac stents as well as extremity stenting. She was extensively investigated in the Emergency Room. Her lab work showed her white cell count was normal. Her chemistry showed that she has hypokalemia. Serum sodium 123. Her anion gap was 18. Blood sugar was extremely high at 451. Her coagulation ____ 9.3, including PT, INR and aPTT are all within normal. Urinalysis showed that the urine was yellow, cloudy with a pH of 5.5. There was large amount of glucose, negative for ketones, small amount of blood, positive for nitrite, small amount of leukocyte esterase, 20-40 rbc's, 20-40 wbc's, and many bacteria. Her toxic screen was positive for alcohol. She has had a CT scan of the abdomen and pelvis without contrast showed right-sided hydronephrosis and hydroureter. She has intrarenal calculi in the right kidney. Ureteral calculus is not identified at this time. She was admitted and started on IV fluid as well as alcohol withdrawal protocol and also IV antibiotic in the form of ceftriaxone 1 g IV daily. PAST MEDICAL HISTORY: Significant for type 2 diabetes mellitus, hypertension, peripheral vascular disease with 5 stents in her both lower extremities. She has hyperlipidemia, coronary artery disease, status post myocardial infarction x 2 with PCI and stent deployment x 2, recurrent urinary tract infection, COPD, osteoarthritis and peripheral neuropathy. PAST SURGICAL HISTORY: Significant for cataract extraction, PCI with stent deployment x 7. She has also tubal ligation, . She did have colonoscopy. ALLERGIES: She has no known drug allergies. MEDICATIONS: She is on Plavix 75 mg once a day, Crestor 10 mg at bedtime, metoprolol tartrate 100 mg twice a day, amlodipine 5 mg daily, losartan potassium 50 mg daily, aspirin 325 mg once a day, Protonix 40 mg daily. She is also on saxagliptin/Onglyza 5 mg daily as well as metformin 1000 mg p.o. b.i.d. and Protonix 40 mg daily. PHYSICAL EXAMINATION: GENERAL: On arrival to the Emergency Room, the patient looked well and was clearly in no apparent respiratory distress. No pallor, jaundice, cyanosis or thyromegaly. No jugular venous distention. No lower limb edema. VITAL SIGNS: Her heart rate was 86, blood pressure was 132/59, temperature was 98.3, respiratory rate was 18 and oxygen saturation was 100% on room air. HEAD, EYES, EARS, NOSE AND THROAT: Showed normocephalic, atraumatic. NECK: Supple. HEART: Showed normal first and second heart sounds with no gallop, rub or murmur. CHEST: Clear to auscultation. No crepitation or rhonchi. ABDOMEN: Distended, soft. She has tenderness mostly in the right flank area. There is no guarding or rigidity. No organomegaly. All hernial orifices intact. Bowel sounds normal. NEUROLOGIC: She was awake, alert, responding appropriately. All cranial nerves intact. EXTREMITIES: She moves extremities without difficulty. She ambulates without assistance or assistive devices. LABORATORY DATA: Her lab work showed a white cell count of 9600, hemoglobin 14, hematocrit 42, MCV 96, and platelet count 234,000. Her prothrombin time was 9.3, INR was 0.9, aPTT was 26. Her chemistry showed a serum sodium of 123, potassium 4.2, chloride 84, bicarbonate 21, anion gap of 18, BUN 7, creatinine 1. Her estimated GFR was 58 mL per minute. Her glucose was 451, calcium was 9.2. Total bilirubin, AST, ALT, alkaline phosphatase were normal. Total protein was 8.5, albumin 3.7, lipase 158. Her urinalysis showed the urine was yellow, cloudy with a pH of 5.5, specific gravity 1.005. The urine was negative for protein, large amount of glucose, negative for ketones, small amount of blood, positive for nitrite, negative for bilirubin, small amount of leukocyte esterase, 20-40 wbc's, and many bacteria. Her toxic screen was positive for alcohol. Her chest x-ray showed no acute chest disease, mild bowel distention of the left lower quadrant. CT scan of the abdomen and pelvis done without contrast showed that there is right-sided hydronephrosis and hydroureter, intrarenal calculi in the right kidney. Ureteral calculus is not identified at this time. ASSESSMENT AND PLAN: The patient was admitted with right-sided hydronephrosis, right side pyelonephritis. We continued all her medication. Start her on banana bag and we will have to start her also on insulin sliding scale and we will continue with IV ceftriaxone, awaiting the result of the urine culture and sensitivity. CASIMIRO LUCERO MD DR: ODIN/johnna JOB#: [id number] / [id number]
[2018-12-19 16:02] VITALS: BP 142/71
[2018-12-19] MEDS: MORPHINE SULFATE 4 MG/ML DISP.SYRIN. IV PRN (16:44)
[2018-12-19 19:43] VITALS: BP 117/66
[2018-12-19] MEDS ORDERED: MORPHINE SULFATE 4 MG/ML DISP.SYRIN. IV PRN (19:45)
--- NOTE | 2018-12-19 23:28 | PN ---
DATE: 12/19/2018 SUBJECTIVE: The patient is resting slightly propped up in bed, in no apparent respiratory distress. She continued to complain of what she describes as fullness in her right flank area and right lower quadrant. Denied, however, any dysuria, frequency or hematuria. Did spike a temperature this morning up to 100.3. PHYSICAL EXAMINATION: GENERAL: When I examined her this morning, she looked well and was clearly in no apparent respiratory distress. No pallor, jaundice, cyanosis or thyromegaly. No jugular venous distention or limb edema. VITAL SIGNS: Her heart rate was 83, blood pressure was 109/65, temperature was 99.3, respiratory rate was 20, and oxygen saturation was 92% on room air. HEAD, EYES, EARS, NOSE AND THROAT: Showed normocephalic, atraumatic. NECK: Supple. HEART: Showed normal first and second heart sounds. No gallop or murmur. CHEST: Clear to auscultation. No crepitation or rhonchi. ABDOMEN: Distended, soft, nontender. No guarding or rigidity. No organomegaly. All hernial orifices intact. Bowel sounds normal. She has marked tenderness in the right lower quadrant as well as right flank area. No tenderness in the left flank area. There is no guarding or rigidity. No organomegaly. All hernial orifices intact. Bowel sounds normal. NEUROLOGIC: She is awake, alert, responding appropriately. All cranial nerves intact. She moves extremities without difficulty. Her intake and output are incompletely recorded. LABORATORY DATA: Her lab work this morning showed a white cell count of 13,100, hemoglobin 12.5, hematocrit 37, MCV 95, platelet count of 206,000. Her serum sodium has dropped down to 120, potassium 4.8, chloride 87, bicarbonate 17, anion gap of 16 and BUN of 7, creatinine 0.9, estimated GFR was 65 mL per minute. Her glucose was 376 and calcium was 8.5. ASSESSMENT: 1. Right-sided pyelonephritis, right-sided ureterohydronephrosis, intrarenal calculi. No obvious stone in the ureter. 2. Type 2 diabetes that is suboptimally controlled. 3. Hyponatremia that is suboptimally controlled. CASIMIRO LUCERO MD DR: ODIN/johnna JOB#: [id number] / [id number]
[2018-12-19 23:41] VITALS: BP 117/76
[2018-12-20 05:45] VITALS: BP 142/62
[2018-12-20 06:31] LABS: HEMATOCRIT 33.1 % (36.0-47.0); HEMOGLOBIN 11.3 g/dL (12.0-15.5); RED BLOOD COUNT 3.46 x10^6/uL (3.50-5.40); RED CELL DISTRIBUTION WIDTH 13.6 % (11.5-14.5); WHITE BLOOD COUNT 7.2 x10^3/uL (4.0-11.0)
[2018-12-20 06:37] LABS: ALBUMIN 2.2 g/dL (3.4-5.0); ALBUMIN/GLOBULIN RATIO 0.6 (1.0-1.7); CALCIUM 8.3 mg/dL (8.5-10.1); CREATININE 0.9 mg/dL (0.6-1.0); GFR 65.5; POTASSIUM 4.1 mmol/L (3.5-5.1); TOTAL BILIRUBIN 0.3 mg/dL (0.2-1.0); TOTAL PROTEIN 6.2 g/dL (6.4-8.2)
[2018-12-20] MEDS: CLOPIDOGREL BISULFATE 75 MG TABLET PO SCH (08:18)
[2018-12-20] MEDS: ATORVASTATIN CALCIUM 20 MG TABLET PO SCH (08:18)
[2018-12-20] MEDS: LINAGLIPTIN 5 MG TABLET PO SCH (08:19)
[2018-12-20] MEDS: ASPIRIN ENTERIC COATED 81 MG TABLET.DR. PO SCH (08:19)
[2018-12-20] MEDS: METOPROLOL TART IMMED RELEASE 50 MG TABLET PO SCH (08:19)
[2018-12-20] MEDS: PANTOPRAZOLE 40 MG TABLET. PO SCH (08:19)
[2018-12-20] MEDS: amLODIPine BESYLATE 5 MG TABLET PO SCH (08:19)
[2018-12-20] MEDS: metFORMIN 500 MG TABLET PO SCH (08:20)
[2018-12-20] MEDS: INSULIN LISPRO 300 UNITS/3 ML VIAL. SQ SCH ×2 (08:31→12:00)
[2018-12-20] MEDS: NICOTINE 14MG PATCH. TD SCH (08:31)
[2018-12-20] MEDS: IV NORMAL SALINE 1,000ML 1,000 ML IV SCH (09:45)
[2018-12-20] MEDS: MVI, ADULT NO.4 WITH VIT K 10 ML, THIAMINE INJ 100 MG, FOLIC ACID INJ 1 MG in IV NORMAL... IV SCH ×4 (10:04)
[2018-12-20 11:15] VITALS: BP 104/68
[2018-12-20 14:51] VITALS: BP 112/72
== END 2018-12-20 15:38 | disposition short-term general hospital (02) | DRG 690 ==
LOC: ER 21:10 → 1 SOUTH 23:31
PROVIDERS: ADMIT Hospitalist; ATTEND Internal Medicine
DX: N13.6 Pyonephrosis (principal); E87.1 Hypo-osmolality and hyponatremia; E11.65 Type 2 diabetes mellitus with hyperglycemia; E78.00 Pure hypercholesterolemia, unspecified; E78.5 Hyperlipidemia, unspecified; E87.6 Hypokalemia; I10 Essential (primary) hypertension; I25.10 Atherosclerotic heart disease of native coronary artery without angina pectoris; I25.2 Old myocardial infarction; J44.9 Chronic obstructive pulmonary disease, unspecified; K21.9 Gastro-esophageal reflux disease without esophagitis; Z87.440 Personal history of urinary (tract) infections; Z87.891 Personal history of nicotine dependence; Z95.5 Presence of coronary angioplasty implant and graft; Z98.51 Tubal ligation status; M19.90 Unspecified osteoarthritis, unspecified site
CPT/HCPCS: 36415; 71045; 74176; 80048; 80053; 80307; 81001; 82947; 83690; 84484; 85025; 85027; 85610; 85730; 87086; 87186; 87491; 87591; 93005; 96374; 96375; C9113; J0696; J1815; J2270; J2405; J2765; 99285-25; J7030

== ENCOUNTER 2019-03-13 08:16 | Emergency (ER) | payer MEDICARE, MEDICAID ==
[~2019-03-13] VITALS: Ht 167.6 cm; Wt 69.7 kg
[2019-03-13] MEDS ORDERED: IV NORMAL SALINE 1,000ML 1,000 ML IV SCH (08:30)
[2019-03-13] MEDS ORDERED: ONDANSETRON PF 4 MG/2 ML VIAL. IVP ONE (08:45)
[2019-03-13 08:51] LABS: BASO # 0.1 x10^3/uL (0.0-0.2); BASO % 1 % (0-3); EOS % 0 % (0-3); HEMATOCRIT 40.1 % (36.0-47.0); HEMOGLOBIN 13.8 g/dL (12.0-15.5); LYMPH # 1.1 x10^3/uL (1.0-4.8); LYMPH % 8 % (24-48); MEAN CORPUSCULAR HEMOGLOBIN 33 pg (25-35); MEAN CORPUSCULAR HGB CONC 34 g/dL (31-37); MEAN CORPUSCULAR VOLUME 95 fL (79-100); MONO # 0.9 x10^3/uL (0.0-1.1); MONO % 7 % (0-9); NEUT # 11.2 x10^3uL (1.8-7.7); NEUT % 84 % (31-73); PLATELET COUNT 272 x10^3/uL (140-400); RED BLOOD COUNT 4.22 x10^6/uL (3.50-5.40); RED CELL DISTRIBUTION WIDTH 13.6 % (11.5-14.5); WHITE BLOOD COUNT 13.3 x10^3/uL (4.0-11.0)
--- NOTE | 2019-03-13 09:27 | PHYS DOC ---
Past History Past Medical History: COPD, Diabetes, GERD, High Cholesterol, Hypertension, [place] Past Surgical History: Tubal ligation, Other Additional Past Surgical Histo: cardiac and extremity stents Smoking: Cigarettes, Less than 1pk/day Alcohol Use: None Drug Use: None Adult General Chief Complaint Chief Complaint: BACK PAIN OR INJURY [facility] HPI Patient is a 54-year-old female who presents with complaint of right-sided rib pain and back pain that started last night after falling and hitting her ribs. She rates pain at a 9 out of 10. She states the pain is worsened with breathing and states that she has not been able to take in a deep breath due to the pain since that time. She states that she is starting to feel some chest congestion because she has a smoker's cough and has not been able to cough normally to clear her chest. She states that the fall occurred because she had a syncopal episode while going to the bathroom. Patient states that she has been having nausea with vomiting and diarrhea for the last 2 days.[] Review of Systems Review of Systems Constitutional: Denies fever or chills [] Respiratory: Complains of cough and shortness of breath [] Cardiovascular: No additional information not addressed in HPI [] GI: Complains of right upper abdominal pain with nausea, vomiting and diarrhea [] Musculoskeletal: Complains of mid to lower thoracic back pain [] Integument: Denies rash or skin lesions [] Neurologic: Denies headache, focal weakness or sensory changes. Positive syncopal episode. [] All other systems were reviewed and found to be within normal limits, except as documented in this note. Current Medications Current Medications Current Medications Medications (Trade) Dose Ordered Sig/[facility] Start Time Stop Time Status Last Admin Dose Admin Fentanyl Citrate (Fentanyl 2ml Vial) 50 mcg PRN Q15MIN PRN 03/13/19 08:30 03/14/19 08:29 03/13/19 08:48 50 MCG Ondansetron HCl (Zofran) 4 mg 1X ONCE 03/13/19 08:45 03/13/19 08:46 DC 03/13/19 08:46 4 MG Sodium Chloride 1,000 ml @ 250 mls/hr Q4H 03/13/19 08:30 03/13/19 12:29 03/13/19 08:43 250 MLS/HR Allergies Allergies Allergies Coded Allergies Type Severity Reaction Last Updated Verified No Known Drug Allergies 11/26/18 No Physical Exam Physical Exam Constitutional: Well developed, well nourished, in mild distress, non-toxic appearance. [] HENT: Normocephalic, atraumatic, bilateral external ears normal, oropharynx moist, no oral exudates, nose normal. [] Eyes: PERRLA, EOMI, conjunctiva normal, no discharge. [] Neck: Normal range of motion, no tenderness, supple, no stridor. [] Cardiovascular: Regular rate and rhythm[] Lungs & Thorax: Fine rhonchi are noted bilaterally to auscultation [] Abdomen: Bowel sounds normal, soft, with right upper abdominal tenderness. [] Skin: Warm, dry, no erythema, no rash. [] Extremities: No tenderness, no cyanosis, no clubbing, ROM intact. [] Neurologic: Alert and oriented X 3, no focal deficits noted. [] Current Patient Data Vital Signs Vital Signs Date Time Temp Pulse Resp B/P (MAP) Pulse Ox O2 Delivery O2 Flow Rate FiO2 03/13/19 08:48 26 92 Nasal Cannula 2.0 Lab Results Laboratory Tests Test 03/13/19 08:37 White Blood Count 13.3 x10^3/uL (4.0-11.0) H Red Blood Count 4.22 x10^6/uL (3.50-5.40) Hemoglobin 13.8 g/dL (12.0-15.5) Hematocrit 40.1 % (36.0-47.0) Mean Corpuscular Volume 95 fL (79-100) Mean Corpuscular Hemoglobin 33 pg (25-35) Mean Corpuscular Hemoglobin Concent 34 g/dL (31-37) Red Cell Distribution Width 13.6 % (11.5-14.5) Platelet Count 272 x10^3/uL (140-400) Neutrophils (%) (Auto) 84 % (31-73) H Lymphocytes (%) (Auto) 8 % (24-48) L Monocytes (%) (Auto) 7 % (0-9) Eosinophils (%) (Auto) 0 % (0-3) Basophils (%) (Auto) 1 % (0-3) Neutrophils # (Auto) 11.2 x10^3uL (1.8-7.7) H Lymphocytes # (Auto) 1.1 x10^3/uL (1.0-4.8) Monocytes # (Auto) 0.9 x10^3/uL (0.0-1.1) Eosinophils # (Auto) 0.0 x10^3/uL (0.0-0.7) Basophils # (Auto) 0.1 x10^3/uL (0.0-0.2) EKG EKG [] Radiology/Procedures Radiology/Procedures [] Impressions: ROCEDURE: CHEST AP ONLY Study: CHEST AP ONLY Indication: Fall. Right rib pain. Comparison: 12/18/2018 Findings: New from the 12/18/2018 comparison are numerous right-sided rib fractures. A few of these are well seen involving the posterior aspects of the fifth, sixth and seventh ribs. Undulation along the right lateral pleural margin at the mid to inferior aspect likely with overlying rib fractures as well as pleural fluid and a chest wall hematoma. A discrete pneumothorax is not well seen on the right however there is air subjacent to the right hemidiaphragm. No displaced rib fracture seen on the left or left-sided pneumothorax. The cardiomediastinal silhouette is normal in size. Vascular calcifications. Osteopenia. Impression: Multiple right-sided rib fractures such as well seen involving the posterior aspects of the fifth, sixth and seventh ribs. Air subjacent to the right hemidiaphragm though no discrete pneumothorax is seen. Additional observations as above. CT the chest and abdomen is recommended to better characterize. FOR INTERNAL CODING PURPOSES RESULT CODE: (C) Emergent findings were discussed with Dr. Tran by telephone on 03/13/2019 at 1013 hours. Electronically signed by: WINSTON KAUFFMAN MD (03/13/2019 10:18 AM) [facility] Course & Med Decision Making Course & Med Decision Making Pertinent Labs and Imaging studies reviewed. (See chart for details) Findings of CT were discussed with Dr. Hopper, director education for surgery [place], and he will be happy to consult on this patient. I discussed the patient's case with Dr. Doe and he will accept patient in transfer to [facility]. Dragon Disclaimer Dragon Disclaimer This electronic medical record was generated, in whole or in part, using a voice recognition dictation system. Departure Departure: Impression: Primary Impression: Hyponatremia Additional Impressions: Multiple fractures of ribs of both sides Cecal bascule Hyperglycemia Syncope Vomiting and diarrhea Disposition: 02 XFER SHT-TRM HOSP Condition: IMPROVED Referrals: AMALIA YUN MD (PCP) Problem Qualifiers Additional Impressions: Multiple fractures of ribs of both sides Encounter type: initial encounter Fracture type: closed Qualified Codes: S22.43XA - Multiple fractures of ribs, bilateral, initial encounter for closed fracture Syncope Syncope type: unspecified Qualified Codes: R55 - Syncope and collapse ELENA TRAN Jr. DO Mar 13, 2019 09:27
[2019-03-13 09:42] LABS: ALBUMIN 3.3 g/dL (3.4-5.0); ALBUMIN/GLOBULIN RATIO 0.8 (1.0-1.7); CALCIUM 9.1 mg/dL (8.5-10.1); GFR 57.8; POTASSIUM 3.3 mmol/L (3.5-5.1); TOTAL BILIRUBIN 0.7 mg/dL (0.2-1.0); TOTAL PROTEIN 7.4 g/dL (6.4-8.2)
[2019-03-13] MEDS ORDERED: IOHEXOL 300 MG/ML 75 ML VIAL. IV ONE (10:15)
--- NOTE | 2019-03-13 10:20 | RAD ---
Study: CHEST AP ONLY Indication: Fall. Right rib pain. Comparison: 12/18/2018 Findings: New from the 12/18/2018 comparison are numerous right-sided rib fractures. A few of these are well seen involving the posterior aspects of the fifth, sixth and seventh ribs. Undulation along the right lateral pleural margin at the mid to inferior aspect likely with overlying rib fractures as well as pleural fluid and a chest wall hematoma. A discrete pneumothorax is not well seen on the right however there is air subjacent to the right hemidiaphragm. No displaced rib fracture seen on the left or left-sided pneumothorax. The cardiomediastinal silhouette is normal in size. Vascular calcifications. Osteopenia. Impression: Multiple right-sided rib fractures such as well seen involving the posterior aspects of the fifth, sixth and seventh ribs. Air subjacent to the right hemidiaphragm though no discrete pneumothorax is seen. Additional observations as above. CT the chest and abdomen is recommended to better characterize. FOR INTERNAL CODING PURPOSES RESULT CODE: (C) Emergent findings were discussed with Dr. Tran by telephone on 03/13/2019 at 1013 hours. Electronically signed by: WINSTON KAUFFMAN MD (03/13/2019 10:18 AM) [facility]
[2019-03-13] MEDS ORDERED: INSULIN REGULAR 100 UNIT/ML 3ML VIAL. IV ONE (10:45)
[2019-03-13 10:58] LABS: COLOR,URINE RED
[2019-03-13 10:59] LABS: BACTERIA,URINE MANY /HPF (0-FEW); BILIRUBIN,URINE NEG (NEG); CLARITY,URINE BLOODY; GLUCOSE,URINE >=1000 mg/dL (NEG); NITRITE,URINE NEG (NEG); RBC,URINE >40 /HPF (0-2); SQUAMOUS EPITHELIAL CELL,UR MOD /LPF; UROBILINOGEN,URINE 0.2 mg/dL (0.2 mg/dL); WBC,URINE >40 /HPF (0-4)
[2019-03-13 12:38] VITALS: BP 135/53
--- NOTE | 2019-03-13 12:44 | RAD ---
Study: CT chest, abdomen and pelvis with contrast INDICATION: Fall. Multiple rib fractures and pneumoperitoneum seen by radiography. COMPARISON: CT abdomen/pelvis 12/18/2018 TECHNIQUE: Helical CT imaging performed of the chest, abdomen and pelvis after the intravenous administration of 75 cc Omnipaque 300. Coronal and sagittal reformats were obtained. One or more of the following individualized dose reduction techniques were utilized for this examination: 1. Automated exposure control 2. Adjustment of the mA and/or kV according to patient size 3. Use of iterative reconstruction technique. FINDINGS: CT Chest: No findings of traumatic injury to the visualized great vessels. Multifocal calcific atherosclerosis which is greatest approaching the right carotid bifurcation that is only partially visualized. The left eighth cranial vertebral artery is dominant and there may be mild stenosis at its origin. Calcific coronary artery disease. Calcified and noncalcified atheromatous plaque of the thoracic aorta without aneurysmal dilatation or dissection. No retrosternal hematoma or pericardial effusion. No pneumomediastinum. Debris is present within the esophagus such as seen on image 51 series 4. No suspicious mediastinal or hilar lymph nodes. No pneumothorax is identified or pericardial effusion. Groundglass haziness at the right lung base adjacent to a few rib fractures could represent mild contusive injury versus atelectasis. Scattered small pleural-based pulmonary nodules are identified on both the right and left. [employer] pleural-based nodule on the right in the right middle lobe on image 77 series 4 measuring 3 mm and within the left upper lobe on image 30 series 4 measuring 3 mm. Right middle lobe nodule that does not abut the pleura is seen on image 71 series 4 measuring 5 mm. Frothy debris seen scattered throughout the airways mainly to the bilateral lower lobes and right middle lobe. Fractured anterior right third rib. Fractured anterior right fourth rib. The fifth rib is fractured both anterolateral and posterior. The sixth rib is fractured both anterolateral and posterior. The seventh rib is fractured both anterolateral and posterior. The eighth rib is fractured anterolateral. The ninth rib is fractured anterolateral. Remote right 10th and 11th rib fractures. No acute fracture seen on the left. A few remote left rib fractures are noted. Mild superior endplate can cavity at T1 and T2 but without ancillary findings to suggest acuity. No bony retropulsion. No traumatic malalignment. No fracture seen to involve the posterior elements. The sternum is intact. CT Abdomen/Pelvis: Small amount of fluid subjacent to the right hemidiaphragm such as seen on image 24 series 7, however there are no findings of hepatic laceration. Apparent mild gallbladder wall thickening is similar to the prior. No newly seen pancreas abnormality. No traumatic injury to the spleen. No newly seen adrenal gland mass. Right more so than left perinephric fat stranding that has decreased in severity from the 12/18/2018 comparison. Subtle diminished enhancement of the right renal parenchyma relative to the left. Previously seen hydroureteronephrosis on the right is much less apparent. On both sides there are patchy areas of diminished cortical enhancement. Very abnormal appearance of the urinary bladder with wall thickening, emphysema within the wall and air within the bladder lumen. Redemonstrated right ovarian cyst measuring approximately 3.4 cm. No newly seen left adnexal mass. The uterus is unremarkable. The previously questioned pneumoperitoneum on the prior radiographs was artifactual and represented colon interposed between the liver and diaphragm. The cecum has displaced into the right upper quadrant relative to the prior CT. The terminal ileum is seen anterior to the liver on image 56 series 7 the distal aspect of the ascending colon and proximal transverse colon are collapsed but more distally the colon exhibits intermittent gaseous distention. Scattered loops of small bowel are mildly distended/dilated. The stomach is without discrete mucosal abnormality. Extensive calcified and noncalcified atheromatous plaque throughout the abdominal aorta and bilateral iliofemoral systems. Prior stenting is noted. No newly seen aneurysmal dilatation or findings of an suggest traumatic injury to the major vessels. No pneumoperitoneum. No free fluid is seen. Multifocal muscular atrophy/fatty infiltration. 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 Multifocal left more so than right subchondral lucencies within the femoral heads. Degenerative changes at the sacroiliac joints and spinal column. Unchanged ventral height loss at L5. No newly seen vertebral body height loss or malalignment. IMPRESSION: CT Chest: 1. Multiple right-sided rib fractures, as detailed above, some of which exhibit mild displacement. Additionally, the right fifth, sixth and seventh ribs are fractured in two places both anterolateral and posteriorly. No associated pneumothorax. Faint areas of groundglass attenuation at the periphery of the right lower lobe could represent mild contusive injury given proximity to the rib fractures. 2. Frothy debris seen within the small airways to the bilateral lower lobes and right middle lobe suggestive of aspiration. 3. Faint superior endplate concavity at T1 and T2 but these findings do not appear acute and no traumatic malalignment or paraspinous hematoma is seen. CT Abdomen/Pelvis: 1. Hypermobile cecum with a bascule-like configuration with the cecum and terminal ileum seen displaced into the right upper quadrant and interposed between the liver and the right hemidiaphragm. It is this cecal displacement that resulted in the artifactual appearance of pneumoperitoneum on the same day chest radiograph. No overt small bowel dilatation or collapse of the distal colon to suggest this to be fully obstructing. 2. Thickened and edematous urinary bladder wall with air in the bladder lumen as well as within the wall itself. Emphysematous cystitis needs to be considered. Subtle diminished enhancement of the right kidney relative to the left as well as faint areas of cortical low-attenuation suggestive of superimposed pyelonephritis. 3. Numerous chronic findings, as detailed above, which are present on the 12/18/2018 comparison. FOR INTERNAL CODING PURPOSES RESULT CODE: (C) Significant findings were discussed with Dr. Tran by telephone on 03/13/2019 at 1145 hours. Electronically signed by: WINSTON KAUFFMAN MD (03/13/2019 12:42 PM) [facility]
[2019-03-13] MEDS ORDERED: IV NORMAL SALINE 100ML 100 ML ONE (13:01)
== END 2019-03-13 13:30 | disposition short-term general hospital (02) ==
LOC: ER 08:16
DX: S22.43XA Multiple fractures of ribs, bilateral, initial encounter for closed fracture (principal); R55 Syncope and collapse; K63.89 Other specified diseases of intestine; E11.65 Type 2 diabetes mellitus with hyperglycemia; R19.7 Diarrhea, unspecified; R11.2 Nausea with vomiting, unspecified; M54.6 Pain in thoracic spine; R10.11 Right upper quadrant pain; J44.9 Chronic obstructive pulmonary disease, unspecified; K21.9 Gastro-esophageal reflux disease without esophagitis; E78.00 Pure hypercholesterolemia, unspecified; I10 Essential (primary) hypertension; I25.2 Old myocardial infarction; F17.210 Nicotine dependence, cigarettes, uncomplicated; Z98.51 Tubal ligation status; W18.39XA Other fall on same level, initial encounter; Y93.89 Activity, other specified; Y92.89 Other specified places as the place of occurrence of the external cause; Y99.8 Other external cause status
CPT/HCPCS: 36415; 71045; 71260; 74177; 80053; 81001; 82947; 85025; 87086; 87186; 96361; 96365; 96375; 96376; 99285; J0696; J1815; J2405; J3010; Q9967; J7030

== ENCOUNTER 2019-04-17 12:39 | Inpatient (IN) | payer MEDICARE, MEDICAID ==
[~2019-04-17] VITALS: Ht 170.2 cm; Wt 65.0 kg
[2019-04-17] MEDS ORDERED: IV NORMAL SALINE 1,000ML 1,000 ML IV SCH (13:04)
[2019-04-17 13:27] LABS: BASO # 0.1 x10^3/uL (0.0-0.2); BASO % 1 % (0-3); EOS # 0.2 x10^3/uL (0.0-0.7); EOS % 3 % (0-3); LYMPH # 1.9 x10^3/uL (1.0-4.8); LYMPH % 22 % (24-48); MEAN CORPUSCULAR HEMOGLOBIN 32 pg (25-35); MEAN CORPUSCULAR HGB CONC 34 g/dL (31-37); MEAN CORPUSCULAR VOLUME 93 fL (79-100); MONO # 0.6 x10^3/uL (0.0-1.1); MONO % 7 % (0-9); NEUT # 5.8 x10^3uL (1.8-7.7); NEUT % 67 % (31-73); PLATELET COUNT 254 x10^3/uL (140-400); RED BLOOD COUNT 3.77 x10^6/uL (3.50-5.40); WHITE BLOOD COUNT 8.6 x10^3/uL (4.0-11.0)
[2019-04-17 13:43] LABS: ALBUMIN 3.3 g/dL (3.4-5.0); ALBUMIN/GLOBULIN RATIO 0.8 (1.0-1.7); CALCIUM 9.2 mg/dL (8.5-10.1); CREATININE 1.2 mg/dL (0.6-1.0); GFR 46.8; POTASSIUM 5.7 mmol/L (3.5-5.1); TOTAL BILIRUBIN 0.5 mg/dL (0.2-1.0); TOTAL PROTEIN 7.6 g/dL (6.4-8.2)
[2019-04-17] MEDS ORDERED: MORPHINE SULFATE 4 MG/ML DISP.SYRIN. IV ONE (13:45)
--- NOTE | 2019-04-17 13:53 | RAD ---
Single view of the chest. 04/17/2019 1:04 PM Indication: Cough Comparison: Chest radiograph March 13, 2019 Findings: No acute focal infiltrate is seen. Healing right-sided rib fractures noted, with new callus formation since prior study. No pneumothorax or pleural effusion is seen. Heart size is normal. No new fractures identified. IMPRESSION: 1.No evidence of acute cardiopulmonary process 2. Multiple rib fractures, with progression of callus formation/healing in the interim Electronically signed by: Heraclio Hollingsworth MD (04/17/2019 1:49 PM) [id number]
[2019-04-17] MEDS ORDERED: INSULIN REGULAR 100 UNIT/ML 3ML VIAL. IV ONE (14:00)
[2019-04-17 14:02] LABS: BILIRUBIN,URINE NEG (NEG); CLARITY,URINE HAZY; COLOR,URINE YELLOW; GLUCOSE,URINE >=1000 mg/dL (NEG)
[2019-04-17 14:03] LABS: BACTERIA,URINE FEW /HPF (0-FEW); NITRITE,URINE NEG (NEG); SQUAMOUS EPITHELIAL CELL,UR MANY /LPF; UROBILINOGEN,URINE 0.2 mg/dL (0.2 mg/dL)
[2019-04-17] MEDS ORDERED: SODIUM POLYSTYRENE SULFONATE 15 GM/60 ML ORAL.SUSP. PO ONE (14:15)
--- NOTE | 2019-04-17 14:32 | PHYS DOC ---
Past History Past Medical History: COPD, Diabetes, GERD, High Cholesterol, Hypertension, DC Additional Past Medical Histor: pad Past Surgical History: , Tubal ligation, Other Additional Past Surgical Histo: cardiac and extremity stents Smoking: Cigarettes, Less than 1pk/day Additional Smoking Information: QUIT RECENTLY Alcohol Use: None Additional Alcohol Information: HISTORY OF HEAVY DRINKING, HASN'T DRANK SINCE HOSPITALIZED Drug Use: None Adult General Chief Complaint Chief Complaint: HYPERGLYCEMIA HPI HPI Patient is a 54-year-old female who presents from Dr. Yun's office with report of elevated blood sugar to 800. Patient recently had been discharged from hospital at [facility] and patient does indicate that blood sugars have not been well managed. She does report to right sided rib pain due to multiple rib fractures. She denies any chest pain otherwise and has no shortness of breath. She does complain of generalized weakness.[] Review of Systems Review of Systems Constitutional: Denies fever or chills [] Respiratory: Complains of cough without shortness of breath [] Cardiovascular: No additional information not addressed in HPI [] GI: Denies abdominal pain, nausea, vomiting or diarrhea [] Neurologic: Denies headache, focal weakness or sensory changes [] All other systems were reviewed and found to be within normal limits, except as documented in this note. Current Medications Current Medications Current Medications Medications (Trade) Dose Ordered Sig/Roque Start Time Stop Time Status Last Admin Dose Admin Insulin Human Regular (HumuLIN R VIAL) 15 unit 1X ONCE 04/17/19 14:00 04/17/19 14:07 DC 04/17/19 14:01 15 UNIT Morphine Sulfate (Morphine 4mg Syringe) 4 mg 1X ONCE 04/17/19 13:45 04/17/19 14:07 DC 04/17/19 13:52 4 MG Sodium Polystyrene Sulfonate (Sps 15 Gm/60 ml Suspension) 15 gm 1X ONCE 04/17/19 14:15 04/17/19 14:16 DC 04/17/19 14:10 15 GM Sodium Chloride 1,000 ml @ 1,000 mls/hr Q1H 04/17/19 13:04 04/17/19 14:03 DC 04/17/19 13:17 1,000 MLS/HR Allergies Allergies Allergies Coded Allergies Type Severity Reaction Last Updated Verified No Known Drug Allergies 04/17/19 No Physical Exam Physical Exam Constitutional: Well developed, well nourished, no acute distress, non-toxic appearance. [] HENT: Normocephalic, atraumatic, bilateral external ears normal, oropharynx dry, no oral exudates, nose normal. [] Eyes: PERRLA, EOMI, conjunctiva normal, no discharge. [] Neck: Normal range of motion, no tenderness, supple, no stridor. [] Cardiovascular: Regular rate and rhythm[] Lungs & Thorax: Coarse rhonchi are noted bilaterally to auscultation [] Abdomen: Bowel sounds normal, soft, no tenderness. [] Skin: Warm, dry, no erythema, no rash. [] Extremities: No tenderness, no cyanosis, no clubbing, ROM intact. [] Neurologic: Alert and oriented X 3, no focal deficits noted. [] Current Patient Data Vital Signs Vital Signs Date Time Temp Pulse Resp B/P (MAP) Pulse Ox O2 Delivery O2 Flow Rate FiO2 04/17/19 14:02 64 14 129/51 (77) 100 Room Air 04/17/19 12:52 97.5 Lab Results Laboratory Tests Test 04/17/19 13:11 04/17/19 13:14 04/17/19 13:25 Glucose (Fingerstick) 591 mg/dL (70-99) *H White Blood Count 8.6 x10^3/uL (4.0-11.0) Red Blood Count 3.77 x10^6/uL (3.50-5.40) Hemoglobin 12.0 g/dL (12.0-15.5) Hematocrit 35.0 % (36.0-47.0) L Mean Corpuscular Volume 93 fL (79-100) Mean Corpuscular Hemoglobin 32 pg (25-35) Mean Corpuscular Hemoglobin Concent 34 g/dL (31-37) Red Cell Distribution Width 14.0 % (11.5-14.5) Platelet Count 254 x10^3/uL (140-400) Neutrophils (%) (Auto) 67 % (31-73) Lymphocytes (%) (Auto) 22 % (24-48) L Monocytes (%) (Auto) 7 % (0-9) Eosinophils (%) (Auto) 3 % (0-3) Basophils (%) (Auto) 1 % (0-3) Neutrophils # (Auto) 5.8 x10^3uL (1.8-7.7) Lymphocytes # (Auto) 1.9 x10^3/uL (1.0-4.8) Monocytes # (Auto) 0.6 x10^3/uL (0.0-1.1) Eosinophils # (Auto) 0.2 x10^3/uL (0.0-0.7) Basophils # (Auto) 0.1 x10^3/uL (0.0-0.2) Sodium Level 118 mmol/L (136-145) *L Potassium Level 5.7 mmol/L (3.5-5.1) H Chloride Level 85 mmol/L (98-107) L Carbon Dioxide Level 24 mmol/L (21-32) Anion Gap 9 (6-14) Blood Urea Nitrogen 20 mg/dL (7-20) Creatinine 1.2 mg/dL (0.6-1.0) H Estimated GFR (Cockcroft-Gault) 46.8 BUN/Creatinine Ratio 17 (6-20) Glucose Level 668 mg/dL (70-99) *H Calcium Level 9.2 mg/dL (8.5-10.1) Total Bilirubin 0.5 mg/dL (0.2-1.0) Aspartate Amino Transferase (AST) 14 U/L (15-37) L Alanine Aminotransferase (ALT) 24 U/L (14-59) Alkaline Phosphatase 131 U/L (46-116) H Total Protein 7.6 g/dL (6.4-8.2) Albumin 3.3 g/dL (3.4-5.0) L Albumin/Globulin Ratio 0.8 (1.0-1.7) L Acetone Level Neg (NEG) Urine Collection Type Unknown Urine Color Yellow Urine Clarity Hazy Urine pH 6.0 Urine Specific [place] <=1.005 Urine Protein Neg (NEG-TRACE) Urine Glucose (UA) >=1000 mg/dL (NEG) Urine Ketones (Stick) Neg mg/dL (NEG) Urine Blood Trace (NEG) Urine Nitrite Neg (NEG) Urine Bilirubin Neg (NEG) Urine Urobilinogen Dipstick 0.2 mg/dL (0.2 mg/dL) Urine Leukocyte Esterase Neg (NEG) Urine RBC 3-5 /HPF (0-2) Urine WBC 5-10 /HPF (0-4) Urine Squamous Epithelial Cells Many /LPF Urine Bacteria Few /HPF (0-FEW) Urine Mucus Slight /LPF EKG EKG EKG demonstrates sinus rhythm with rate of 66 with PVCs[] Radiology/Procedures Radiology/Procedures [] Impressions: PROCEDURE: PORTABLE CHEST 1V Single view of the chest. 04/17/2019 1:04 PM Indication: Cough Comparison: Chest radiograph March 13, 2019 Findings: No acute focal infiltrate is seen. Healing right-sided rib fractures noted, with new callus formation since prior study. No pneumothorax or pleural effusion is seen. Heart size is normal. No new fractures identified. IMPRESSION: 1.No evidence of acute cardiopulmonary process 2. Multiple rib fractures, with progression of callus formation/healing in the interim Electronically signed by: Heraclio Hollingsworth MD (04/17/2019 1:49 PM) [facility] Course & Med Decision Making Course & Med Decision Making Pertinent Labs and Imaging studies reviewed. (See chart for details) [] Dragon Disclaimer Dragon Disclaimer This electronic medical record was generated, in whole or in part, using a voice recognition dictation system. Departure Departure: Impression: Primary Impression: Hyponatremia Additional Impressions: Hyperglycemia Hyperkalemia Disposition: ADMITTED INPATIENT Admitting Physician: Danielle Doe Condition: IMPROVED Referrals: AMALIA YUN MD (PCP) Problem Qualifiers ELENA KESSLER Jr. DO Apr 17, 2019 14:32
[2019-04-17] MEDS ORDERED: MORPHINE SULFATE 4 MG/ML DISP.SYRIN. IV PRN (14:45)
[2019-04-17] MEDS ORDERED: ONDANSETRON PF 4 MG/2 ML VIAL. IV PRN (14:45)
[2019-04-17] MEDS: IV NORMAL SALINE 1,000ML 1,000 ML IV SCH ×2 (14:47→21:17)
[2019-04-17 17:56] VITALS: BP 109/60
[2019-04-17] MEDS ORDERED: DEXTROSE 50% 25 GM / 50ML DISP.SYRIN. IV PRN (18:45)
[2019-04-17 19:22] LABS: CALCIUM 8.6 mg/dL (8.5-10.1); CREATININE 1.3 mg/dL (0.6-1.0); GFR 42.7; POTASSIUM 4.2 mmol/L (3.5-5.1)
[2019-04-17] MEDS ORDERED: INSULIN LISPRO 300 UNITS/3 ML VIAL. SQ SCH (20:00)
[2019-04-17] MEDS: oxyCODONE IR 5 MG TABLET PO PRN (20:51)
[2019-04-17] MEDS: ATORVASTATIN CALCIUM 20 MG TABLET PO SCH (20:51)
[2019-04-17] MEDS: METOPROLOL TART IMMED RELEASE 50 MG TABLET PO SCH (20:52)
[2019-04-17] MEDS ORDERED: INSULIN LISPRO 300 UNITS/3 ML VIAL. SQ ONE (21:00)
[2019-04-17] MEDS ORDERED: INSULIN GLARGINE SYRINGE. SQ SCH (21:00)
--- NOTE | 2019-04-17 21:19 | HP ---
ADMIT DATE: 04/17/2019 HISTORY OF PRESENT ILLNESS: The patient is a 54-year-old female patient, who apparently was seen today at her primary care physician for a followup, where she was found to have markedly elevated blood sugar of 800. She was recently discharged from [facility]. She was there after she had had a fall with multiple right-sided rib fractures and following acute respiratory failure where she was intubated and mechanically ventilated. She has had multiple bronchoscopies for total whiteout to the left lung. Eventually, she did well and a decision was made to discharge her home with home health and her blood sugar was actually reasonably controlled when she was at the [facility]. On questioning her further, she did complain of polydipsia and polyuria. Continued to obviously have right-sided chest pain. She has also some dizziness and lightheadedness. PAST MEDICAL HISTORY: Significant for type 2 diabetes mellitus, hypertension, and peripheral vascular disease with 5 stents to both lower extremities. She has hyperlipidemia, coronary artery disease, status post myocardial infarction x 2 with PCI and stent deployment x 2, recurrent urinary tract infection, COPD, osteoarthritis, and peripheral neuropathy. She also has a tobacco use disorder and a heavy alcohol drinking. PAST SURGICAL HISTORY: Significant for a cataract extraction, PCI with stent deployment x 7, has a tubal ligation, , did have colonoscopy, and underwent multiple bronchoscopies when she was at the [facility] for mucus plugging of her left main bronchus. ALLERGIES: She has no known drug allergies. MEDICATIONS: She is currently on Plavix 75 mg once a day, Crestor 10 mg at bedtime, metoprolol tartrate 100 mg twice a day, amlodipine 5 mg daily, losartan potassium 50 mg once a day, aspirin 325 mg once a day, Protonix 40 mg daily. She is also on saxagliptin (Onglyza) 5 mg once a day, metformin 1000 mg twice a day. FAMILY HISTORY: Noncontributory. SOCIAL HISTORY: She lives with her significant other. She claims that she has quit smoking and drinking, although she has history of a heavy drinking and also smoking. PHYSICAL EXAMINATION: GENERAL: On arrival to the Emergency Room, she looked well and was clearly in no apparent respiratory distress. No pallor, jaundice, cyanosis, or thyromegaly. No jugular venous distention. No limb edema. VITAL SIGNS: Her heart rate was 97, blood pressure was 120/54, temperature was 98, respiratory rate was 24, and oxygen saturation was 97% on room air. HEAD, EYES, EARS, NOSE, AND THROAT: Showed normocephalic and atraumatic. NECK: Supple. HEART: Showed normal first and second heart sounds. No gallop or murmur. CHEST: Clear to auscultation. No crepitation or rhonchi. ABDOMEN: Distended, soft, and nontender. NEUROLOGIC: She is awake, alert, and responding appropriately. All cranial nerves are intact. EXTREMITIES: She moves extremities without difficulty. She ambulates without assistance or assistive devices. LABORATORY WORK: On admission showed a serum sodium of 118, potassium 5.7, chloride 85, bicarbonate 24, anion gap of 9, BUN 20, and creatinine 1.2. Estimated GFR was 46 mL per minute. Her glucose was 668 and calcium was 9.2. Total bilirubin, AST, ALT, and alkaline phosphatase were normal. Total protein was 7.6 and albumin 3.3. Her white cell count was 8600, hemoglobin 12, hematocrit 35, MCV 93, and platelet count 254,000. Urinalysis showed the urine was yellow, hazy with the pH of 6, specific gravity 1.005. The urine was negative for protein. There was large amount of glucose. The urine was negative for ketones. There was a trace amount of blood, negative for nitrite, negative for leukocyte esterase. There are 2-5 rbc's, 5-10 wbc's, very few bacteria. The toxic screen showed blood alcohol to be less than 10 and acetone was negative. Her chest x-ray showed no acute focal infiltrate is seen, healing right-sided rib fracture is noted with new callus formation since prior study. No pneumothorax or pleural effusion is seen. Heart size is normal. No new fracture is identified. ASSESSMENT AND PLAN: Basically, the patient was admitted with dilutional hyponatremia, severe hyperglycemia and hyperkalemia. We will reconcile all her medications. I will start her on sliding scale as well as Lantus and decide on the further management accordingly. CASIMIRO LUCERO MD DR: ODIN/johnna JOB#: [id number] / [id number]
[2019-04-17 22:29] VITALS: BP 109/64
[2019-04-18] MEDS: oxyCODONE IR 5 MG TABLET PO PRN ×3 (03:48→17:18)
[2019-04-18] MEDS: IV NORMAL SALINE 1,000ML 1,000 ML IV SCH ×2 (03:48→10:27)
[2019-04-18 05:49] VITALS: BP 123/74
--- NOTE | 2019-04-18 05:55 | EKG ---
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
[2019-04-18] MEDS: metFORMIN 500 MG TABLET PO SCH ×2 (08:04→17:11)
[2019-04-18] MEDS: CLOPIDOGREL BISULFATE 75 MG TABLET PO SCH (08:04)
[2019-04-18] MEDS: LINAGLIPTIN 5 MG TABLET PO SCH (08:05)
[2019-04-18] MEDS: ASPIRIN 81 MG TAB.CHEW PO SCH (08:05)
[2019-04-18] MEDS: LOSARTAN 50 MG TABLET. PO SCH (08:05)
[2019-04-18] MEDS: PANTOPRAZOLE 40 MG TABLET. PO SCH (08:05)
[2019-04-18] MEDS: METOPROLOL TART IMMED RELEASE 50 MG TABLET PO SCH ×2 (08:06→21:00)
[2019-04-18] MEDS: amLODIPine BESYLATE 5 MG TABLET PO SCH (08:06)
[2019-04-18] MEDS: INSULIN LISPRO 300 UNITS/3 ML VIAL. SQ SCH ×4 (08:14→17:15)
[2019-04-18 10:42] VITALS: BP 134/76
[2019-04-18] MEDS: INSULIN GLARGINE SYRINGE. SQ SCH ×2 (14:00→21:26)
--- NOTE | 2019-04-18 14:28 | PN ---
DATE: 04/18/2019 SUBJECTIVE: The patient is resting, slightly propped up in bed, in no apparent distress. She is feeling much improved. No more dizziness or lightheadedness. Her blood sugar is much better improved, though not optimally yet. Her potassium has normalized and her sodium has improved, although not completely normalized. OBJECTIVE: GENERAL: When I examined her, she looked well and was clearly in no apparent respiratory distress. No pallor, jaundice, cyanosis or thyromegaly. No jugular venous distention. No lower limb edema. VITAL SIGNS: Her heart rate was 60, blood pressure was 134/76, temperature 97.8, respiratory rate was 20 and oxygen saturation was 98%. HEAD, EYES, EARS, NOSE AND THROAT: Showed normocephalic, atraumatic. NECK: Supple. HEART: Showed normal first and second heart sounds. No gallop or murmur. CHEST: Clear to auscultation. No crepitation or rhonchi. ABDOMEN: Slightly distended, soft, nontender. NEUROLOGICAL: She is more awake, alert, responding appropriately. All cranial nerves are intact. She moves extremities without difficulty. She ambulates without difficulty. LABORATORY DATA: As of yesterday, her sodium was 124, potassium 4.2, chloride 90, bicarbonate 23, anion gap of 11, BUN 20, creatinine 1.3, estimated GFR was 42 mL per minute. Her glucose 403, calcium was 8.6. Her white cell count was 8600, hemoglobin 12, hematocrit 35, MCV 93 and platelet count 254,000. Her intake over the last 24 hours was 2500, no output was recorded. ASSESSMENT: 1. Severe hyperglycemia, improving. 2. Hyperkalemia, resolved. 3. Hyponatremia, improving. PLAN: To increase her Lantus to 20 units, start her on scheduled insulin 10 units before meals and sliding scale and continue with 1000 mg of metformin twice a day. We will discontinue the IV fluid and repeat all her labs tomorrow morning and hopefully discharge her home on insulin. CASIMIRO LUCERO MD DR: ODIN/johnna JOB#: [id number] / [id number]
[2019-04-18 14:53] VITALS: BP 120/78
[2019-04-18 19:33] VITALS: BP 143/73
[2019-04-18] MEDS: ATORVASTATIN CALCIUM 20 MG TABLET PO SCH (21:13)
[2019-04-18 22:58] VITALS: BP 139/74
[2019-04-19] MEDS: oxyCODONE IR 5 MG TABLET PO PRN ×2 (02:04→13:36)
[2019-04-19 05:11] VITALS: BP 100/63
[2019-04-19 07:32] LABS: CALCIUM 8.7 mg/dL (8.5-10.1); CREATININE 0.7 mg/dL (0.6-1.0); GFR 87.2
[2019-04-19 07:57] LABS: POTASSIUM 3.7 mmol/L (3.5-5.1)
[2019-04-19] MEDS: INSULIN LISPRO 300 UNITS/3 ML VIAL. SQ SCH ×6 (08:00→17:10)
[2019-04-19] MEDS: METOPROLOL TART IMMED RELEASE 50 MG TABLET PO SCH (08:23)
[2019-04-19] MEDS: ASPIRIN 81 MG TAB.CHEW PO SCH (08:24)
[2019-04-19] MEDS: LINAGLIPTIN 5 MG TABLET PO SCH (08:24)
[2019-04-19] MEDS: metFORMIN 500 MG TABLET PO SCH ×2 (08:24→17:06)
[2019-04-19] MEDS: PANTOPRAZOLE 40 MG TABLET. PO SCH (08:24)
[2019-04-19] MEDS: CLOPIDOGREL BISULFATE 75 MG TABLET PO SCH (08:24)
[2019-04-19] MEDS: LOSARTAN 50 MG TABLET. PO SCH (08:24)
[2019-04-19] MEDS: amLODIPine BESYLATE 5 MG TABLET PO SCH (08:25)
[2019-04-19 10:51] VITALS: BP 136/67
[2019-04-19 15:15] VITALS: BP 164/80
[2019-04-19] MEDS ORDERED: INSU100C SQ (17:13)
[2019-04-19] MEDS ORDERED: INSU100I13 SQ (17:13)
--- NOTE | 2019-04-19 17:49 | DS ---
DATE OF DISCHARGE: 04/17/2019 HOSPITAL COURSE: This is a 54-year-old female patient who was admitted from her primary care physician's office on account of severe hyperglycemia, hyponatremia and mild dehydration. She was started on IV fluid. We will start her on insulin at 10 units of Lantus at nighttime and we will increase subsequently to 20 units together with Humalog insulin and her blood sugar has been well controlled. PHYSICAL EXAMINATION: GENERAL: When I examined her today, she looked well and was clearly in no apparent respiratory distress. No pallor, jaundice, cyanosis or thyromegaly. No jugular venous distension. No lower limb edema. VITAL SIGNS: Her heart rate was 67, blood pressure was 164/80, temperature 97.7, respiratory rate 20, and oxygen saturation was 99%. The rest of clinical exam is stable. LABORATORY DATA: Her lab work as of this morning showed serum sodium of 132, potassium 3.7, chloride 98, bicarbonate 25, anion gap of 9, BUN 8, creatinine 0.7, estimated GFR was 87 mL per minute. Her glucose 158, calcium was 8.7. Her hemoglobin 12, hematocrit 35 with normal white cell count and platelets. DISCHARGE MEDICATIONS: She was discharged home to continue on Lantus insulin 20 units at bedtime and Humalog insulin 10 units 3 times a day before meals. Should continue with amlodipine 10 mg once a day, aspirin 325 mg once a day, Plavix 75 mg once a day, losartan potassium 50 mg once a day, metformin 1000 mg twice a day, metoprolol tartrate 50 mg twice a day, Protonix 40 mg once a day, Crestor 10 mg daily and Onglyza 5 mg daily. FINAL DISCHARGE DIAGNOSES: 1. Severe hyperglycemia, much improved. 2. Hyperkalemia, resolved. 3. Hyponatremia, improved. Other medical problems include hypertension; severe peripheral vascular disease, status post 5 stents to both lower extremities; hyperlipidemia; coronary artery disease, status post myocardial infarction, status post PCI with stent deployment; chronic obstructive pulmonary disease; osteoarthritis; peripheral neuropathy. CASIMIRO LUCERO MD DR: ODIN/johnna JOB#: [id number] / [id number]
== END 2019-04-19 17:51 | disposition home or self-care (01) | DRG 637 ==
LOC: ER 12:39 → 1 SOUTH 17:50
PROVIDERS: ADMIT Internal Medicine; ATTEND Internal Medicine
DX: E11.01 Type 2 diabetes mellitus with hyperosmolarity with coma (principal); N17.0 Acute kidney failure with tubular necrosis; E87.1 Hypo-osmolality and hyponatremia; E87.5 Hyperkalemia; E11.65 Type 2 diabetes mellitus with hyperglycemia; E86.0 Dehydration; E11.51 Type 2 diabetes mellitus with diabetic peripheral angiopathy without gangrene; E78.00 Pure hypercholesterolemia, unspecified; E78.5 Hyperlipidemia, unspecified; I10 Essential (primary) hypertension; I25.10 Atherosclerotic heart disease of native coronary artery without angina pectoris; I25.2 Old myocardial infarction; J44.9 Chronic obstructive pulmonary disease, unspecified; Z87.440 Personal history of urinary (tract) infections; Z87.891 Personal history of nicotine dependence; Z95.5 Presence of coronary angioplasty implant and graft; K21.9 Gastro-esophageal reflux disease without esophagitis
CPT/HCPCS: 36415; 71045; 80048; 80053; 81001; 82010; 82947; 85025; 87086; 93005; 96361; 96374; 96375; G0480; J1815; J2270; 99285-25; J7030

== ENCOUNTER → 2020-03-12 | Outpatient (CLI) | payer OTHER, MEDICAID ==
[~2020-03-12] MED LIST changes: +INSU100C SQ; +INSU100I13 SQ; -PANT40TA5 PO; +PANT40TA6 PO
== END ==
LOC: LAB 15:21
PROVIDERS: ATTEND Nurse Anesthetist, Certified Registered
DX: Z01.818 Encounter for other preprocedural examination (principal); H26.9 Unspecified cataract; Z20.828 Contact with and (suspected) exposure to other viral communicable diseases
CPT/HCPCS: U0003

== ENCOUNTER → 2020-03-18 | Day surgery (SDC) | payer OTHER, MEDICAID ==
[~2020-03-18] MED LIST changes: +BALANCED SALT IRRIG OPHTH SOLN 15 ML BOTTLE. IRR ONE; +CATARACT OPHTH GEL 0.5 ML SYRINGE. OS ONE; +CHONDROIT-SOD-HYALURONATE KIT. OS ONE; +EPINEPHrine AMPULE 0.5 MG in BALANCED SALT IRRIG SOLN PLUS 500 ML IO ONE; +ERYTHROMYCIN 0.5% OPHTH OINTMENT 1GM TUBE. OS ONE; +HYALURONIDASE 75UNITS in LIDOCAINE 2% PF OPHTH 10 ML SYRINGE. OS ONE; +IPRATRPIUM/ALBUTEROL 0.5/2.5MG 3 ML NEBU. NEB PRN; +IV RINGERS SOLUTION,LACTATED 1,000 ML IV SCH; +KETOROLAC TROMETHAMINE 0.5% OPHTH SOLUTION BOTTLE. ONE; +KETOROLAC TROMETHAMINE 0.5% OPHTH SOLUTION BOTTLE. OS ONE; +KETOROLAC TROMETHAMINE 0.5% OPHTH SOLUTION BOTTLE. OS SCH; +LIDO/EPI IN BSS OPHTH 4 ML SYRINGE. OS ONE; +MIDAZOLAM HCL PF 2 MG/2 ML VIAL. IV ONE; +MOXIFLOXACIN 0.5% OPHTH SOLUTION 3ML BOTTLE. OS ONE; +MOXIFLOXACIN 0.5% OPHTH SOLUTION 3ML BOTTLE. OS SCH; +ONDANSETRON PF 4 MG/2 ML VIAL. IV PRN; +POVIDONE-IODINE 5% OPHTH SOLUTION 30ML BOTTLE. OS ONE; +PROPOFOL 10,000 MCG/ML (20ML) VIAL IV ONE; +TETRACAINE 0.5% OPHTH SOLUTION 4ML BOTTLE. OS ONE; +TETRACAINE 0.5% OPHTH SOLUTION 4ML BOTTLE. OU ONE; +prednisoLONE ACETATE 1% OPHTH SUSPENSION 5ML BOTTLE. ONE; +prednisoLONE ACETATE 1% OPHTH SUSPENSION 5ML BOTTLE. OS ONE; +prednisoLONE ACETATE 1% OPHTH SUSPENSION 5ML BOTTLE. OS SCH
[2020-03-18] MEDS: MOXIFLOXACIN 0.5% OPHTH SOLUTION 3ML BOTTLE. OS SCH ×3 (09:00→09:15)
--- NOTE | 2020-03-18 09:46 | PDOC4 ---
Phaco/Toric IOL/OS Date of Procedure: Mar 18, 2020 Preoperative Doagnosis: 1. Senile Cataract, OS 2. Corneal astigmatism, OS Postoperative Diagnosis: 1. Senile Cataract, OS 2. Corneal astigmatism, OS Anesthesia: Local with monitored anesthesia care Surgeon: Westley Jara D.O. Procedure: Phacoemulsification with toric intraocular lens implant at 70 degrees, OS Findings: 1. Senile Cataract, OS 2. Corneal astigmatism, OS Indications: Worsening vision interfering with patient's lifestyle Narrative: After discussing the risks, complications and alternatives, including but not limited to loss of vision, infection, bleeding, swelling, anesthetic reaction, c apsule rupture with vitreous loss, etc., the patient was given topical anesthetic in the eye. The eye was then marked at the 3, 6 and 9 o'clock limbus. Nadeen-ocular anesthesia was given and a [place] Balloon was applied for 10 minutes. The patient was transferred to the main operating room and was prepped and draped in the usual sterile fashion and positioned under the microscope. A lid speculum was placed. A temporal clear corneal incision was made with a keratome and viscoelastic was injected into the anterior chamber. A 5.5 mm diameter corneal yang was placed. A side port incision was made. A continuous tear capsulorrhexis was performed, then hydrodissection was accomplished with balanced salt solution. They phacoemulsification needle was placed in the eye a nd the nucleus was emulsified. The remaining cortical material was removed with the irrigation and aspiration apparatus. The capsule was polished as needed. The posterior capsule was noted to be clean and intact. Viscoelastic was injected into the eye inflating the capsular bag. The cornea was marked at the appropriate meridian for toric IOL implantation. An intraocular lens was in jected into the eye, unfolding as desired and was positioned at the appropriate meridian. The wound edges were hydrated with balanced salt solution and there were no leaks. Viscoelastic was injected over the limbal incisions. Antibiotic and steroid were placed on the eye. The lid speculum was removed and a patch and Lugo shield were applied. There were no complications and the patient was taken to the PACU in good condition. WESTLEY JARA DO Mar 18, 2020 09:46
[2020-03-18 10:12] VITALS: BP 142/87
== END | disposition home or self-care (01) ==
LOC: SURG 08:24
PROVIDERS: ATTEND Ophthalmology
DX: E11.36 Type 2 diabetes mellitus with diabetic cataract (principal); H25.12 Age-related nuclear cataract, left eye; H52.202 Unspecified astigmatism, left eye; I25.2 Old myocardial infarction; E11.51 Type 2 diabetes mellitus with diabetic peripheral angiopathy without gangrene; E11.65 Type 2 diabetes mellitus with hyperglycemia; E11.42 Type 2 diabetes mellitus with diabetic polyneuropathy; E78.5 Hyperlipidemia, unspecified; F10.10 Alcohol abuse, uncomplicated; E11.649 Type 2 diabetes mellitus with hypoglycemia without coma; F17.210 Nicotine dependence, cigarettes, uncomplicated; M19.90 Unspecified osteoarthritis, unspecified site; J45.909 Unspecified asthma, uncomplicated; I11.0 Hypertensive heart disease with heart failure; I50.9 Heart failure, unspecified; I25.10 Atherosclerotic heart disease of native coronary artery without angina pectoris; K21.9 Gastro-esophageal reflux disease without esophagitis; Z68.24 Body mass index [BMI] 24.0-24.9, adult; Z98.890 Other specified postprocedural states; Z91.14 Patient's other noncompliance with medication regimen; Z95.5 Presence of coronary angioplasty implant and graft; Z87.440 Personal history of urinary (tract) infections; Z86.73 Personal history of transient ischemic attack (TIA), and cerebral infarction without residual deficits; Z82.49 Family history of ischemic heart disease and other diseases of the circulatory system; Z98.891 History of uterine scar from previous surgery
CPT/HCPCS: 66984; 82947; J0171; J2704; V2632

== ENCOUNTER → 2020-03-28 | Outpatient (CLI) | payer OTHER, MEDICAID ==
[2020-03-18 10:12] VITALS: BP 142/87
[~2020-03-28] MED LIST changes: -BALANCED SALT IRRIG OPHTH SOLN 15 ML BOTTLE. IRR ONE; -CATARACT OPHTH GEL 0.5 ML SYRINGE. OS ONE; -CHONDROIT-SOD-HYALURONATE KIT. OS ONE; -EPINEPHrine AMPULE 0.5 MG in BALANCED SALT IRRIG SOLN PLUS 500 ML IO ONE; -ERYTHROMYCIN 0.5% OPHTH OINTMENT 1GM TUBE. OS ONE; -HYALURONIDASE 75UNITS in LIDOCAINE 2% PF OPHTH 10 ML SYRINGE. OS ONE; -IPRATRPIUM/ALBUTEROL 0.5/2.5MG 3 ML NEBU. NEB PRN; -IV RINGERS SOLUTION,LACTATED 1,000 ML IV SCH; -KETOROLAC TROMETHAMINE 0.5% OPHTH SOLUTION BOTTLE. ONE; -KETOROLAC TROMETHAMINE 0.5% OPHTH SOLUTION BOTTLE. OS ONE; -KETOROLAC TROMETHAMINE 0.5% OPHTH SOLUTION BOTTLE. OS SCH; -LIDO/EPI IN BSS OPHTH 4 ML SYRINGE. OS ONE; -MIDAZOLAM HCL PF 2 MG/2 ML VIAL. IV ONE; -MOXIFLOXACIN 0.5% OPHTH SOLUTION 3ML BOTTLE. OS ONE; -MOXIFLOXACIN 0.5% OPHTH SOLUTION 3ML BOTTLE. OS SCH; -ONDANSETRON PF 4 MG/2 ML VIAL. IV PRN; -POVIDONE-IODINE 5% OPHTH SOLUTION 30ML BOTTLE. OS ONE; -PROPOFOL 10,000 MCG/ML (20ML) VIAL IV ONE; -TETRACAINE 0.5% OPHTH SOLUTION 4ML BOTTLE. OS ONE; -TETRACAINE 0.5% OPHTH SOLUTION 4ML BOTTLE. OU ONE; -prednisoLONE ACETATE 1% OPHTH SUSPENSION 5ML BOTTLE. ONE; -prednisoLONE ACETATE 1% OPHTH SUSPENSION 5ML BOTTLE. OS ONE; -prednisoLONE ACETATE 1% OPHTH SUSPENSION 5ML BOTTLE. OS SCH
== END ==
LOC: LAB 08:50
PROVIDERS: ATTEND Nurse Anesthetist, Certified Registered
DX: Z01.812 Encounter for preprocedural laboratory examination (principal); H26.8 Other specified cataract; Z20.828 Contact with and (suspected) exposure to other viral communicable diseases
CPT/HCPCS: C9803; U0003

== ENCOUNTER 2020-04-01 09:41 | Emergency (ER) | payer OTHER, MEDICAID ==
[~2020-04-01] VITALS: Ht 170.2 cm; Wt 63.7 kg
[2020-04-01 09:41] VITALS: BP 97/52
[~2020-04-01 09:41] MED LIST changes: -BALANCED SALT IRRIG OPHTH SOLN 15 ML BOTTLE. IO ONE; -BALANCED SALT IRRIG OPHTH SOLN 15 ML BOTTLE. IRR ONE; -CATARACT OPHTH GEL 0.5 ML SYRINGE. OD ONE; -CHONDROIT-SOD-HYALURONATE KIT. OD ONE; -EPINEPHrine AMPULE 0.5 MG in BALANCED SALT IRRIG SOLN PLUS 500 ML IO ONE; -ERYTHROMYCIN 0.5% OPHTH OINTMENT 1GM TUBE. OD ONE; -HYALURONIDASE 75UNITS in LIDOCAINE 2% PF OPHTH 10 ML SYRINGE. OD ONE; -IPRATRPIUM/ALBUTEROL 0.5/2.5MG 3 ML NEBU. NEB PRN; -IV RINGERS SOLUTION,LACTATED 1,000 ML IV SCH; -KETOROLAC TROMETHAMINE 0.5% OPHTH SOLUTION BOTTLE. OD ONE; -KETOROLAC TROMETHAMINE 0.5% OPHTH SOLUTION BOTTLE. OD SCH; -MIDAZOLAM HCL PF 2 MG/2 ML VIAL. IV ONE; -MOXIFLOXACIN 0.5% OPHTH SOLUTION 3ML BOTTLE. OD SCH; -ONDANSETRON PF 4 MG/2 ML VIAL. IV PRN; -POVIDONE-IODINE 5% OPHTH SOLUTION 30ML BOTTLE. OD ONE; -TETRACAINE 0.5% OPHTH SOLUTION 4ML BOTTLE. OD ONE; -TETRACAINE 0.5% OPHTH SOLUTION 4ML BOTTLE. OU ONE; -prednisoLONE ACETATE 1% OPHTH SUSPENSION 5ML BOTTLE. OD ONE; -prednisoLONE ACETATE 1% OPHTH SUSPENSION 5ML BOTTLE. OD SCH
--- NOTE | 2020-04-01 09:56 | PHYS DOC ---
Past History Past Medical History: CAD, Diabetes, Hypertension, [place], Other Additional Past Medical Histor: pad Past Surgical History: Other Additional Past Surgical Histo: CARDIAC STENTS AND LOWER LEG STENTS Smoking: Cigarettes, Less than 1pk/day Alcohol Use: None Drug Use: None Adult General HPI HPI Patient is a 55-year-old female who presents from postoperative unit at [facility] for postoperative complications. Patient with significant cardiac history involving several cardiac stents and currently on aspirin and Plavix therapy in addition to insulin-dependent diabetes with last A1c approximately 7% presented this morning to [facility] for right cataract surgery. Patient was found with lower than usual blood pressures approximately 100/60 on arrival and asymptomatic. Patient was given phenylephrine and subsequently tolerated surgical procedure well. Nonetheless, patient's blood pressure was found to be hypotensive and postoperative care unit with lowest reading approaching 70/40. Patient was also diaphoretic and lightheaded at that time which concerned staff who subsequently referred patient over to our ER for formal evaluation. Patient states she took her morning metoprolol this morning in addition to 10 units subcu insulin for hyperglycemic reading ~200. She has not eaten or drank an ything since waking up today. Denies any fever, recent COVID-19 contact, chest pain, shortness of breath, abdominal pain, nausea vomit diarrhea, urinary or bowel symptoms. Review of Systems Review of Systems Fourteen body systems of review of systems have been reviewed. See HPI for pertinent positives and negative responses, other selby all other systems are negative, non-pertinent or non-contributory Allergies Allergies Allergies Coded Allergies Type Severity Reaction Last Updated Verified No Known Drug Allergies 04/01/20 No Physical Exam Physical Exam Constitutional: Pt is oriented to person, place, and time. Pt appears well-developed and well- nourished. Appears diaphoretic and weak HEENT: Head: Normocephalic and atraumatic. Residual Betadine from recent surgery present External ears unremarkable, negative neff sign Conjunctivae and EOM are normal. Left pupil is equal, round, and reactive to light. Cleaned dry and intact dressing from recent right cataract surgery present over right eye, right eye examination was deferred Oropharynx is clear and dry No hematomas or lacerations or abrasions to face or scalp OP clear, no blood, no malocclusion, dentition intact Nares clear, no nasal septal hematoma Midface stable Neck: C-spine midline nontender, no step-offs Cardiovascular: Normal rate, regular rhythm and normal heart sounds. Pulmonary/Chest: Effort normal and breath sounds normal. No respiratory distress. No wheezes. CTA bilaterally Abdominal: Soft. Bowel sounds are normal. Pt exhibits no distension. There is no tenderness. Musculoskeletal: No bony tenderness to extremities, no deformities, full ROM extremities Chest wall stable Pelvis stable and non-tender No vertebral TTP and spine without stepoffs Neurological: Pt is alert and oriented to person, place, and time. Moving all extremities willfully, able to wiggle all fingers and toes Alert and oriented x 3 Sensation grossly intact Skin: Skin is warm and diaphoretic. No abrasions, no lacerations Psychiatric: Behavior is appropriate for situation Current Patient Data Vital Signs Vital Signs Date Time Temp Pulse Resp B/P (MAP) Pulse Ox O2 Delivery O2 Flow Rate FiO2 04/01/20 09:41 97.1 50 19 97/52 (67) 96 Lab Results Laboratory Tests Test 04/01/20 09:48 04/01/20 10:09 Glucose (Fingerstick) 55 mg/dL (70-99) White Blood Count 8.3 x10^3/uL (4.0-11.0) Red Blood Count 4.10 x10^6/uL (3.50-5.40) Hemoglobin 13.3 g/dL (12.0-15.5) Hematocrit 39.3 % (36.0-47.0) Mean Corpuscular Volume 96 fL (79-100) Mean Corpuscular Hemoglobin 32 pg (25-35) Mean Corpuscular Hemoglobin Concent 34 g/dL (31-37) Red Cell Distribution Width 13.6 % (11.5-14.5) Platelet Count 330 x10^3/uL (140-400) Neutrophils (%) (Auto) 52 % (31-73) Lymphocytes (%) (Auto) 32 % (24-48) Monocytes (%) (Auto) 9 % (0-9) Eosinophils (%) (Auto) 6 % (0-3) Basophils (%) (Auto) 0 % (0-3) Neutrophils # (Auto) 4.3 x10^3uL (1.8-7.7) Lymphocytes # (Auto) 2.7 x10^3/uL (1.0-4.8) Monocytes # (Auto) 0.7 x10^3/uL (0.0-1.1) Eosinophils # (Auto) 0.5 x10^3/uL (0.0-0.7) Basophils # (Auto) 0.0 x10^3/uL (0.0-0.2) Sodium Level 127 mmol/L (136-145) Potassium Level 4.2 mmol/L (3.5-5.1) Chloride Level 94 mmol/L (98-107) Carbon Dioxide Level 27 mmol/L (21-32) Anion Gap 6 (6-14) Blood Urea Nitrogen 15 mg/dL (7-20) Creatinine 1.0 mg/dL (0.6-1.0) Estimated GFR (Cockcroft-Gault) 57.6 BUN/Creatinine Ratio 15 (6-20) Glucose Level 83 mg/dL (70-99) Calcium Level 9.2 mg/dL (8.5-10.1) Total Bilirubin 0.2 mg/dL (0.2-1.0) Aspartate Amino Transf (AST/SGOT) 12 U/L (15-37) Alanine Aminotransferase (ALT/SGPT) 18 U/L (14-59) Alkaline Phosphatase 87 U/L (46-116) Troponin I Quantitative < 0.017 ng/mL (0-0.055) Total Protein 7.1 g/dL (6.4-8.2) Albumin 3.4 g/dL (3.4-5.0) Albumin/Globulin Ratio 0.9 (1.0-1.7) EKG EKG EKG performed in PACU after phenylephrine administration at 0843 hours and interpreted by myself at 0952 hrs. as sinus rhythm at 57 bpm with occasional PVC, unremarkable intervals, no axis deviation, T wave inversions noted in leads III otherwise no acute ischemic findings, no STEMI Repeat EKG ordered and interpreted by myself at 1032 hrs. as sinus rhythm at 84 bpm, prolonged QTC at 529 otherwise unremarkable intervals, no axis deviation, no acute ischemic findings, no STEMI Both EKGs above compared to prior EKG performed 04/17/2019 and grossly unchanged, T wave abnormality noted in lead III present and appears to be a chronic finding Radiology/Procedures Radiology/Procedures EXAM: Chest, single view. HISTORY: Hypotension. COMPARISON: 04/17/2019 FINDINGS: A frontal view of the chest is obtained. There is no infiltrate, pleural effusion or pneumothorax. There is stable right lower lobe opacity likely due to callus formation from healed or healing rib fractures. The heart is normal in size. IMPRESSION: No acute pulmonary finding. Electronically signed by: Alice Wood MD (04/01/2020 10:35 AM) [id number] Heart Score HEART Score for Chest Pain: HEART Score for Chest Pain Response (Comments) Value History Slighlty/Non-Suspicious 0 ECG Nonspecific Repolarizatio 1 Age >45 - < 65 1 Risk Factors >3 Risk Factors or Hx CAD 2 Troponin < Normal Limit 0 Total 4 Risk Factors: Risk Factors: DM, Current or recent (<one month) smoker, HTN, HLP, family history of CAD, obesity. Risk Scores: Risk Factors: DM, Current or recent (<one month) smoker, HTN, HLP, family history of CAD, obesity. Course & Med Decision Making Course & Med Decision Making Pertinent Labs and Imaging studies reviewed. (See chart for details) Patient hypoglycemic on arrival. This was fixed with PO intake. Patient took insulin this morning without eating which is likely cause Patient also hypotensive on arrival. This resolved after PO intake and IVF rehydration. She took x1 Metoprolol this morning prior to surgery Patient observed in ER and at baseline mentation, no concern for any impending change in mentation or overall health I discussed utility in hospital admission and recommended this given concerning events reported earlier today but patient deferred She cites having good PCP follow-up and can be seen in upcoming 72 hours SRP discussed with good understanding, all questions and concerns address prior to departure Elias Disclaimer Dragjasiel Disclaimer This electronic medical record was generated, in whole or in part, using a voice recognition dictation system. Departure Departure: Impression: Primary Impression: Hypoglycemia Additional Impression: Chronic hyponatremia Disposition: 01 DC HOME SELF CARE/HOMELESS Condition: IMPROVED Referrals: AMALIA YUN MD (PCP) Patient Instructions: Hypoglycemia (Low Blood Sugar) Additional Instructions: You were seen for hypoglycemia. You need to start taking your insulin/diabetes medications as prescribed and follow up with your primary care doctor as soon as possible. It is important for good glycemic control to reduce the risks of acute and chronic medical problems. Please keep dedicated fingerstick blood sugar log in addition to blood pressure log for review with your primary care physician in outpatient setting. I would advise you to call their office today to discuss current ER visit and next steps in care. Return to the ED if you develop any abdominal pain, vomiting, cough, chest pain, fever, or any other new or concerning symptoms. Problem Qualifiers CHARLA EASON DO Apr 01, 2020 09:56
[2020-04-01] MEDS ORDERED: IV NORMAL SALINE 500ML 500 ML IV ONE ×2 (10:00→10:45)
[2020-04-01 10:32] LABS: BASO % 0 % (0-3); EOS # 0.5 x10^3/uL (0.0-0.7); EOS % 6 % (0-3); HEMATOCRIT 39.3 % (36.0-47.0); HEMOGLOBIN 13.3 g/dL (12.0-15.5); LYMPH # 2.7 x10^3/uL (1.0-4.8); LYMPH % 32 % (24-48); MEAN CORPUSCULAR HEMOGLOBIN 32 pg (25-35); MEAN CORPUSCULAR HGB CONC 34 g/dL (31-37); MEAN CORPUSCULAR VOLUME 96 fL (79-100); MONO # 0.7 x10^3/uL (0.0-1.1); MONO % 9 % (0-9); NEUT # 4.3 x10^3uL (1.8-7.7); NEUT % 52 % (31-73); PLATELET COUNT 330 x10^3/uL (140-400); RED CELL DISTRIBUTION WIDTH 13.6 % (11.5-14.5); WHITE BLOOD COUNT 8.3 x10^3/uL (4.0-11.0)
[2020-04-01 10:33] LABS: CALCIUM 9.2 mg/dL (8.5-10.1); GFR 57.6; POTASSIUM 4.2 mmol/L (3.5-5.1)
--- NOTE | 2020-04-01 10:37 | RAD ---
EXAM: Chest, single view. HISTORY: Hypotension. COMPARISON: 04/17/2019 FINDINGS: A frontal view of the chest is obtained. There is no infiltrate, pleural effusion or pneumo thorax. There is stable right lower lobe opacity likely due to callus formation from healed or healin g rib fractures. The heart is normal in size. IMPRESSION: No acute pulmonary finding. Electronically signed by: Alice Wood MD (04/01/2020 10:35 AM) [id number]
[2020-04-01 10:39] LABS: ALBUMIN 3.4 g/dL (3.4-5.0); ALBUMIN/GLOBULIN RATIO 0.9 (1.0-1.7); TOTAL BILIRUBIN 0.2 mg/dL (0.2-1.0); TOTAL PROTEIN 7.1 g/dL (6.4-8.2)
[2020-04-01] MEDS ORDERED: PROPOFOL 10,000 MCG/ML (20ML) VIAL IV ONE (12:15)
--- NOTE | 2020-04-01 13:01 | EKG ---
[address] [address] Test Date: 2020-04-01 Test Time: 10:30:44 Pat Name: SANDIP GARCÍA Department: Room: Gender: F Running Specialist: MARIA E : 1965 Requested By: CHARLA EASON Order Number: [id number] Reading MD: Measurements Intervals [place] Rate: 84 P: [place]: QRS: 27 QRSD: 96 T: -13 QT: 444 QTc: 529 Interpretive Statements IRREGULAR RHYTHM, NO P-WAVE FOUND VENTRICULAR PREMATURE COMPLEX(ES) LOW LIMB LEAD VOLTAGE QRS(T) CONTOUR ABNORMALITY CONSISTENT WITH INFERIOR INFARCT AGE UNDETERMINED ABNORMAL ECG RI6.02 No previous ECG available for comparison
== END 2020-04-01 11:55 | disposition home or self-care (01) ==
LOC: ER 09:41
DX: E11.649 Type 2 diabetes mellitus with hypoglycemia without coma (principal); E87.1 Hypo-osmolality and hyponatremia; I10 Essential (primary) hypertension; I25.2 Old myocardial infarction; F17.210 Nicotine dependence, cigarettes, uncomplicated; Z79.82 Long term (current) use of aspirin; Z86.73 Personal history of transient ischemic attack (TIA), and cerebral infarction without residual deficits
CPT/HCPCS: 36415; 71045; 80053; 82947; 84484; 85025; 93005; 96360; 99285; J2704; J7040

== ENCOUNTER → 2020-04-01 | Day surgery (SDC) | payer OTHER, MEDICAID ==
[~2020-04-01] MED LIST changes: +BALANCED SALT IRRIG OPHTH SOLN 15 ML BOTTLE. IO ONE; +BALANCED SALT IRRIG OPHTH SOLN 15 ML BOTTLE. IRR ONE; +CATARACT OPHTH GEL 0.5 ML SYRINGE. OD ONE; +CHONDROIT-SOD-HYALURONATE KIT. OD ONE; +EPINEPHrine AMPULE 0.5 MG in BALANCED SALT IRRIG SOLN PLUS 500 ML IO ONE; +ERYTHROMYCIN 0.5% OPHTH OINTMENT 1GM TUBE. OD ONE; +HYALURONIDASE 75UNITS in LIDOCAINE 2% PF OPHTH 10 ML SYRINGE. OD ONE; +IPRATRPIUM/ALBUTEROL 0.5/2.5MG 3 ML NEBU. NEB PRN; +IV RINGERS SOLUTION,LACTATED 1,000 ML IV SCH; +KETOROLAC TROMETHAMINE 0.5% OPHTH SOLUTION BOTTLE. OD ONE; +KETOROLAC TROMETHAMINE 0.5% OPHTH SOLUTION BOTTLE. OD SCH; +MIDAZOLAM HCL PF 2 MG/2 ML VIAL. IV ONE; +MOXIFLOXACIN 0.5% OPHTH SOLUTION 3ML BOTTLE. OD SCH; +ONDANSETRON PF 4 MG/2 ML VIAL. IV PRN; +POVIDONE-IODINE 5% OPHTH SOLUTION 30ML BOTTLE. OD ONE; +TETRACAINE 0.5% OPHTH SOLUTION 4ML BOTTLE. OD ONE; +TETRACAINE 0.5% OPHTH SOLUTION 4ML BOTTLE. OU ONE; +prednisoLONE ACETATE 1% OPHTH SUSPENSION 5ML BOTTLE. OD ONE; +prednisoLONE ACETATE 1% OPHTH SUSPENSION 5ML BOTTLE. OD SCH
[2020-04-01] MEDS: MOXIFLOXACIN 0.5% OPHTH SOLUTION 3ML BOTTLE. OD SCH ×3 (08:01→08:09)
--- NOTE | 2020-04-01 09:15 | PDOC4 ---
Phaco/Toric IOL/OD Date of Procedure: Apr 01, 2020 Preoperative Diagnosis: 1. Senile Cataract, OD 2. Corneal astigmatism, OD Postoperative Diagnosis: 1. Senile Cataract, OD 2. Corneal astigmatism, OD Anesthesia: Local with monitored anesthesia care Surgeon: Westley Jara D.O. Procedure: Phacoemulsification with toric intraocular lens implant at 130 degrees, OD Findings: 1. Senile Cataract, OD 2. Corneal astigmatism, OD Indications: Worsening vision interfering with patient's lifestyle Narrative: After discussing the risks, complications and alternatives, including but not limited to loss of vision, infection, bleeding, swelling, anesthetic reaction, capsule rupture with vitreous loss, etc., the patient was given a topical anesthetic in the eye. The eye was then marked at 3, 6 and 9:00 limbus. Periocular anesthesia was given and a Honan balloon was applied for 10 minutes. The patient was transferred to the main operating room and was prepped and draped in the usual sterile fashion and positioned under the microscope. A lid speculum was placed. A temporal clear corneal incision was made with a keratome and viscoelastic was injected into the anterior chamber. A side port incision was made. A 5.5 mm diameter corneal yang was placed. A continuous tear capsulorrhexis was performed, and hydrodissection was accomplished with balanced salt solution. The phacoemulsification needle was placed in the eye and the n ucleus was emulsified. The remaining cortical material was removed with the irrigation and aspiration apparatus. The capsule was polished as needed. The posterior capsule was noted to be clean and intact. Viscoelastic was injected into the eye inflating the capsular bag. The cornea was marked at the appropriate meridian for toric IOL implantation. An intraocular lens was injected into the eye, unfolding as desired and was positioned in the capsular bag. The viscoelastic was aspirated from the eye and the toric IOL was positioned at the appropriate meridian. The wound edges were hydrated with balanced salt solution and there were no leaks. Viscoelastic was injected over the limbal incisions. Antibiotic and steroids were placed on the eye. The lid speculum was removed and a patch and Lugo shield were applied. There were no complications and the patient was taken to the PACU in good condition. WESTLEY JARA DO Apr 01, 2020 09:15
[2020-04-01 09:17] VITALS: BP 80/48
--- NOTE | 2020-04-01 12:49 | NUR ---
Nurse 0917: Pt arrived to Phase II post operatively, reports dizziness, diaphoresis, extreme back pain, and nausea. Vital signs obtained, BP 80/48. HR 60. SPO2 96% on room air. Notified anesthesia provider of symptoms, placed pt back on telemetry. Pt continued to complain of "vision going in and out." Prepare pt for transfer to ER per BELLHOP CAPTAIN. Pt assisted into wheelchair and trasferred to ER with IV intact and cardiac leads in place, report given to ACO COORDINATOR.
--- NOTE | 2020-04-01 13:06 | EKG ---
[address] [address] Test Date: 2020-04-01 Test Time: 08:43:04 Pat Name: SANDIP GARCÍA Department: Room: Gender: F Vending Machine Repairer: MARIA E : 1965 Requested By: WESTLEY JARA Order Number: [id number] Reading MD: Measurements Intervals [place] Rate: 57 P: 62 MD: 162 QRS: 42 QRSD: 96 T: 12 QT: 422 QTc: 414 Interpretive Statements SINUS RHYTHM VENTRICULAR PREMATURE COMPLEX(ES) LOW LIMB LEAD VOLTAGE QRS(T) CONTOUR ABNORMALITY CONSISTENT WITH INFERIOR INFARCT AGE UNDETERMINED ABNORMAL ECG RI6.02 No previous ECG available for comparison
== END | disposition home or self-care (01) ==
LOC: SURG 07:33
PROVIDERS: ATTEND Ophthalmology
DX: H25.11 Age-related nuclear cataract, right eye (principal); H52.201 Unspecified astigmatism, right eye; E11.36 Type 2 diabetes mellitus with diabetic cataract; I10 Essential (primary) hypertension; J45.909 Unspecified asthma, uncomplicated; F17.210 Nicotine dependence, cigarettes, uncomplicated; I25.10 Atherosclerotic heart disease of native coronary artery without angina pectoris; I25.2 Old myocardial infarction; K21.9 Gastro-esophageal reflux disease without esophagitis; E11.40 Type 2 diabetes mellitus with diabetic neuropathy, unspecified; I73.9 Peripheral vascular disease, unspecified; Z98.890 Other specified postprocedural states; Z79.84 Long term (current) use of oral hypoglycemic drugs; Z79.82 Long term (current) use of aspirin; Z79.899 Other long term (current) drug therapy
CPT/HCPCS: 66984; 82947; 93005; J0171; V2632

== ENCOUNTER → 2020-11-11 | Outpatient (CLI) | payer MEDICARE, MEDICAID ==
--- NOTE | 2020-11-11 10:06 | RAD ---
MR#: [id number] Date of Study: 11/11/2020 Ordering Physician: LEAH SON, Referring Physician: LEAH SON, Tech: Zoey Patton RVT,[facility] [place] APPROVED REPORT Patient Location: OUT-PATIENT Exam Type: Ankle to Brachial Index Indications Claudication: PAD Risk Factors Hypertension Cardiac Disease Diabetes Smoking Surgery/Intervention Stent : Pressures/Indices RightABI LeftABI Brachial 132mmHgBrachial 140mmHg Ankle(PT) Ankle(PT) 98mmHg Ankle(DP) 16mvZa3.7Ankle(DP) 752keSh3.7 Critical Notification Critical Value: No <Conclusion> 1. Moderately diminished bilateral ankle-brachial indices as noted above at 0.7 Signed by : Leah Son, Electronically Approved : 11/11/2020 10:05:57
--- NOTE | 2020-11-11 15:47 | RAD ---
MR#: [id number] Date of Study: 11/11/2020 Ordering Physician: LEAH SON, Referring Physician: LEAH SON, Tech: Zoey Patton RVT,[facility] APPROVED REPORT Patient Location: OUT-PATIENT Laterality:Bilateral Indications Bruit Grayscale images the bilateral carotid vessels demonstrates moderate diffuse atherosclerotic plaque. On the right side there is likely moderate 50 to 69% stenosis based on velocity criteria in the mid i nternal carotid artery. Otherwise, normal ICA to CCA ratios and antegrade vertebral velocities. On the left side again there is likely a moderate 50 to 69% stenosis based on velocity criteria in th e mid internal carotid artery. Otherwise, normal ICA to CCA ratios and antegrade vertebral velocitie s. Risk Factors Hypertension: Diabetes PAD Smoking Doppler Spectral Velocity Analysis Right Left pCCA 103/24 cm/spCCA 117/34 cm/s mCCA 94/20 cm/smCCA 121/28 cm/s dCCA 113/25 cm/sdCCA 110/25 cm/s ECA 96/11 cm/sECA 141/16 cm/s pICA 137/25 cm/spICA 155/40 cm/s [place] 159/36 cm/smICA 194/38 cm/s dICA 119/30 cm/sdICA 150/29 cm/s Vert. 55/10 cm/sVert. 61/14 cm/s ICA/CCA 1.41ICA/CCA 1.66 Critical Notification Critical Value: No <Conclusion> 1. Bilateral moderate carotid occlusive disease. Signed by : Leah Son, Electronically Approved : 11/11/2020 15:47:04
--- NOTE | 2020-11-11 16:05 | RAD ---
MR#: [id number] Date of Study: 11/11/2020 Ordering Physician: LEAH SON, Referring Physician: LEAH SON, Tech: Zoey Patton RVT,[facility] APPROVED REPORT Patient Location: OUT-PATIENT Indications Claudication: PAD Grayscale images the bilateral lower extremity arterial vessels demonstrate moderate to severe diffus e atherosclerosis. On the right side there are mostly monophasic waveforms with a occlusion of the right SFA with recons titution at the level the popliteal artery with severely diminished velocities and monophasic wavefor ms. Below the knee there is two-vessel runoff with an occluded posterior tibial artery. Velocities in the anterior tibial and dorsalis pedis and peroneal vessels are severely diminished consistent wit h more proximal stenosis. On the left side there are monophasic waveforms from the common femoral artery to the below-knee vess els. Velocities are grossly within normal limits from the common femoral artery to the distal SFA. There is likely a patent stent in the SFA. Below the knee the velocities are diminished in a monopha sic wave pattern with three-vessel runoff noted. Risk Factors Hypertension Cardiac Disease Diabetes Smoking Surgery/Intervention Stent : VELOCITY AND DOPPLER WAVEFORM ANALYSIS RIGHT cm/secWaveformSeverity LEFT cm/secWaveform Severity pCFA 103.5TriphasicpCFA 50.0Monophasic Prof Fem Art. 94.0TriphasicProf Fem Art. 49.0Monophasic Fem Art Prox. 15.3MonophasicFem Art Prox. 70.7Monophasic Fem Art Mid. OccludedFem Art Mid. 54.1Monophasic Fem Art Dist. OccludedFem Art Dist. 47.5Monophasic Pop Art(Fossa) 26.0MonophasicPop Art(AK) 26.9Monophasic PONY RIDE ATTENDANT Prox. OccludedPTA Prox. 35.3Monophasic PONY RIDE ATTENDANT Dist. OccludedPTA Dist. 44.2Monophasic Per Art Prox. 29.5MonophasicPer Art Prox. 20.5Monophasic DAREN Prox. 25.2MonophasicATA Prox. 24.3Monophasic DPA 16MonophasicDPA 27Monophasic BYPASS GRAFT ANALYSIS RIGHT cm/secWaveform SeverityLEFT cm/secWaveformSeverity Prox. Anastomosis Prox. Anastomosis Triphasic Biphasic Critical Notification Critical Value: No <Conclusion> 1. Severe bilateral lower extremity arterial disease as described above 2. Probable right SFA and posterior tibial artery occlusion. 3. Diffuse left lower extremity arterial disease. Signed by : Leah Son, Electronically Approved : 11/11/2020 16:05:11
--- NOTE | 2020-11-11 16:08 | RAD ---
MR#: [id number] Date of Study: 11/11/2020 Ordering Physician: LEAH SON, Referring Physician: LEAH SON, Tech: Zoey Patton RVT,[facility] APPROVED REPORT Patient Location: OUT-PATIENT Indications There is diffuse moderate to severe atherosclerosis involving the abdominal aorta. No obvious aneury sm is evident with measurements as noted. Velocities in the bilateral proximal common iliac arteries are mildly elevated but no focal high-grade stenosis identified. Risk Factors PAD Hypertension Diabetes Smoking Duplex Results A/PTransverseLongitudinal Proximal Aorta 2.2cm2.0cm Mid Aorta 1.8cm1.9cm Distal Aorta 1.5cm1.6cm Rt. Common Iliac Artery0.8cm0.9cm Lt. Common Iliac Artery 0.8cm1.1cm Doppler VelocityWaveform Proximal Aorta 97.0 cm/sec Aorta Mid. 64.9 cm/sec Distal Aorta 138.5 cm/sec Rt. Common Iliac Eomowg038.2 cm/sec Lt. Common Iliac Artery 173.0 cm/sec Critical Notification Critical Value: No <Conclusion> 1. No evidence of abdominal aortic aneurysm Signed by : Leah Son, Electronically Approved : 11/11/2020 16:07:30
--- NOTE | 2020-11-12 11:01 | CARD ---
MR#: [id number] Date of Study: 11/11/2020 Ordering Physician: LEAH SON, Referring Physician: LEAH SON, Tech: Staci Thacker, [facility] APPROVED REPORT EXAM: Two-dimensional and M-mode echocardiogram with Doppler and color Doppler. Other Information Quality : AverageHR: 57bpm INDICATION Cardiac Disease: CAD RISK FACTORS Hypertension Diabetes Smoking 2D DIMENSIONS IVSd1.0 (0.7-1.1cm)Aortic Root(2D)2.8 (2.0-3.7cm) LVDd4.9 (3.9-5.9cm)LVOT Diameter2.1 (1.8-2.4cm) PWd1.1 (0.7-1.1cm)LVDs2.4 (2.5-4.0cm) FS (%) 51.4 %SV95.0 ml LVEF(%)66.5 (>50%) Aortic Valve AoV Peak Gumaro.146.1cm/sAoV VTI33.9cm AO Peak GR.8.5mmHgLVOT Peak Gumaro.106.1cm/s LVOT VTI 27.48cmAO Mean GR.4mmHg FELIBERTO (VMAX)2.26yp3WON (VTI)2.69cm2 Mitral Valve MV E Kkzuyway43.9cm/sMV DECEL KYIS887at MV A Ouyqrcka869.1cm/sE/A Ratio0.7 Pulmonary Valve PV Peak Hcdwgpqt39.3cm/sPV Peak Grad.3mmHg Tricuspid Valve TR P. Tbunapir628rd/sRAP RUDEKEBZ8ymLv TR Peak Gr.14kkGwCRVF24tnXf Pulmonary Vein S1 Gubjdkyz41.3cm/sD2 Nyasaarq34.0cm/s LEFT VENTRICLE The left ventricle is normal size. There is borderline to mild concentric left ventricular hypertroph y. The left ventricular systolic function is normal and the ejection fraction is within normal range. The Ejection Fraction is 55-60%. There is normal LV segmental wall motion. Transmitral Doppler flow pattern is Grade I-abnormal relaxation pattern. RIGHT VENTRICLE The right ventricle is normal size. There is normal right ventricular wall thickness. The right ventr icular systolic function is normal. ATRIA The left atrium size is normal. The right atrium size is normal. The interatrial septum is intact wit h no evidence for an atrial septal defect or patent foramen ovale as noted on 2-D or Doppler imaging. AORTIC VALVE The aortic valve is thickened but opens well. Doppler and Color Flow revealed no significant aortic r egurgitation. There is no significant aortic valvular stenosis. Calculated aortic valve area is 2.9 c m2 with maximum pressure gradient of 9 mmHg and mean pressure gradient of 4 mmHg. MITRAL VALVE The mitral valve is normal in structure and function. There is no evidence of mitral valve prolapse. There is no mitral valve stenosis. Doppler and Color-flow revealed trace mitral regurgitation. TRICUSPID VALVE The tricuspid valve is normal in structure and function. Doppler and Color Flow revealed trace tricus pid regurgitation with an estimated PAP of 23 mmHg. There is no tricuspid valve stenosis. PULMONIC VALVE The pulmonic valve is not well visualized. Doppler and Color Flow revealed no pulmonic valvular regur gitation. There is no pulmonic valvular stenosis. GREAT VESSELS The aortic root is normal in size. The IVC is normal in size and collapses >50% with inspiration. PERICARDIAL EFFUSION There is no evidence of significant pericardial effusion. Critical Notification Critical Value: No <Conclusion> The left ventricular systolic function is normal and the ejection fraction is within normal range. Th e Ejection Fraction is 55-60%. There is normal LV segmental wall motion. Signed by : Leah Son, Electronically Approved : 11/12/2020 11:00:24
== END ==
LOC: US 07:52
PROVIDERS: ATTEND Internal Medicine Cardiovascular Disease
DX: I65.23 Occlusion and stenosis of bilateral carotid arteries (principal); I11.9 Hypertensive heart disease without heart failure; I77.9 Disorder of arteries and arterioles, unspecified; I73.9 Peripheral vascular disease, unspecified; R09.89 Other specified symptoms and signs involving the circulatory and respiratory systems; I25.10 Atherosclerotic heart disease of native coronary artery without angina pectoris
CPT/HCPCS: 76770; 93306; 93880; 93923; 93925

== ENCOUNTER → 2021-01-05 | Outpatient (CLI) | payer OTHER, MEDICAID ==
--- NOTE | 2021-01-06 14:01 | RAD ---
AP and Lateral Views of the Chest 01/05/2021 4:12 PM Indication: None provided Comparison: Chest radiograph April 01, 2020 Findings: There is no focal consolidation or infiltrate identified. Heart size is normal. There is no evidence of pneumothorax or pleural effusion. Chronic right-sided rib fractures noted. Impression: No evidence of acute cardiopulmonary process. Electronically signed by: Heraclio Hollingsworth MD (01/06/2021 8:25 AM) [id number]
== END ==
LOC: RAD 16:01
PROVIDERS: ATTEND Specialist
DX: S22.41XA Multiple fractures of ribs, right side, initial encounter for closed fracture (principal); J44.1 Chronic obstructive pulmonary disease with (acute) exacerbation; X58.XXXA Exposure to other specified factors, initial encounter; Y93.89 Activity, other specified; Y92.89 Other specified places as the place of occurrence of the external cause; Y99.8 Other external cause status
CPT/HCPCS: 71046